=== PATIENT | female | born 1955 | race Caucasian/White ===

== ENCOUNTER 2021-12-07 10:23 | Outpatient (REF) | payer MEDICARE, SELFPAY ==
[2021-12-13 11:43] LABS: HPV mRNA E6/E7 Not Detected (Not Detected)
== END 2021-12-07 10:24 | disposition home or self-care (01) ==
LOC: HO.LAB 10:23
PROVIDERS: PCP Nurse Practitioner Family; Visit Provider Advanced Practice Midwife
DX: Z01.419 Encounter for gynecological examination (general) (routine) without abnormal findings (principal); F17.210 Nicotine dependence, cigarettes, uncomplicated; N95.1 Menopausal and female climacteric states
CPT/HCPCS: 87624; 88142

== ENCOUNTER 2021-12-17 15:13 | Outpatient (REF) | payer MEDICARE, SELFPAY ==
--- NOTE | ~2021-12-17 | MM_ITS ---
EXAMINATION: MM SCREENING DIGITAL BREAST TOMOSYNTHESIS, BILATERAL CLINICAL INFORMATION: Screening. Asymptomatic. History benign right biopsy years ago. Prior [id number] mammography from [place] currently unavailable. The lifetime risk of breast cancer based on the Tyrer-Cuzick Model is 7%. COMPARISON: None. TECHNIQUE: Digital breast tomosynthesis is performed in both the craniocaudal and mediolateral oblique views along with computer-aided detection (CAD). Synthesized 2D images are generated from the tomosynthesis. FINDINGS: The breasts are heterogeneously dense, which may obscure small masses (ACR BI-RADS breast composition Category c). There is fibronodular parenchymal pattern with scattered benign-appearing fine nodularity in the breasts. There is no significant mass or architectural abnormality. Scattered punctate and coarse calcifications are present, more numerous on right. There is biopsy clip marker anterior 3:00 periareolar right breast. The axilla and skin contours are unremarkable. Radiology department staff will attempt to retrieve prior [id number] mammography to allow for comparison in an addendum report. MM/MM tomosynthesis screening BI IMPRESSION: No mammographic evidence of malignancy. ASSESSMENT: BI-RADS 2: Benign RECOMMENDATION: Routine annual mammography screening. This patient's information was entered into a reminder system with a target due date for their next mammogram.
== END 2021-12-17 15:14 | disposition home or self-care (01) ==
LOC: HO.MAMMO 15:13
PROVIDERS: Visit Provider Nurse Practitioner Family
DX: Z12.31 Encounter for screening mammogram for malignant neoplasm of breast (principal)
CPT/HCPCS: 77063; 77067

== ENCOUNTER 2021-12-19 07:19 | Outpatient (REF) | payer MEDICARE, SELFPAY ==
[2021-12-19 08:00] LABS: Basophils Absolute Auto 0.1 X10*3/uL (0.0-0.2); Basophils Percent Auto 0.7 % (0-2); Eosinophils Absolute Auto 0.1 X10*3/uL (0.0-0.4); Eosinophils Percent Auto 1.6 % (0-4); Hematocrit 44.8 % (37.0-47.0); Hemoglobin 14.8 g/dl (12.0-16.0); Imm Gran Abs Auto 0.01 X10*3/uL (0.00-0.03); Imm Gran Pct Auto 0.1 % (0.0-0.4); Lymphocytes Absolute Auto 3.1 X10*3/uL (1.2-4.9); Lymphocytes Percent Auto 44.4 % (20-40); MANUAL DIFF FLAG SCAN; Mean Corpuscular Hemoglobin 31.5 pg (27.0-33.0); Mean Corpuscular Volume 95.3 fL (80.0-98.0); Mean Platelet Volume 10.1 fL (9.4-12.3); Monocytes Absolute Auto 0.6 X10*3/uL (0.1-1.2); Monocytes Percent Auto 8.4 % (2-11); Neutrophils Absolute Auto 3.1 x10*3/uL (2.0-8.3); Neutrophils Percent Auto 44.8 % (45-73); Platelet Count 253 X10*3/uL (160-400); SCAN SMEAR FLAG 1; White Blood Count 6.9 X10*3/uL (4.8-10.8)
[2021-12-19 08:29] LABS: Alanine Aminotransferase 18 U/L (0-31); Albumin Level 4.3 g/dL (3.5-5.0); Alkaline Phosphatase 75 U/L (39-117); Anion Gap 15 (12-20); Aspartate Amino Transferase 23 U/L (5-31); Bilirubin Total 0.5 mg/dL (0.0-1.0); Blood Urea Nitrogen 10 mg/dL (9-16); Carbon Dioxide 26 mmol/L (22-29); Chloride 101 mmol/L (96-108); Cholesterol 235 mg/dL; Estimated Average Glucose 88 mg/dL; Estimated Glomerular Filt Rate > 60; Glucose Fasting 124 mg/dL (60-99); HDL Cholesterol 78 mg/dL; Hemoglobin A1c % 4.7 %; LDL Cholesterol Calculated 141 mg/dl; Potassium 4.5 mmol/L (3.3-5.1); Sodium 137 mmol/L (135-145); Total Protein 7.4 g/dL (6.5-8.0); Triglycerides 82 mg/dL
[2021-12-19 08:54] LABS: TSH reflex Free T4 2.38 uIU/mL (0.32-4.0)
[2021-12-19 09:51] LABS: SLIDE REVIEW VERIFIED
[2021-12-23 13:46] LABS: Vitamin D 25-OH, D2 <4 ng/mL; Vitamin D 25-OH, D3 45 ng/mL; Vitamin D 25-OH, Total 45 ng/mL (30-100)
[2021-12-25 17:06] LABS: Progesterone 0.6 ng/mL
[2021-12-27 22:37] LABS: Estradiol Free 0.96 pg/mL; Estradiol, Ultrasensitive 63 pg/mL
== END 2021-12-19 07:20 | disposition home or self-care (01) ==
LOC: HO.LAB 07:19
PROVIDERS: PCP Nurse Practitioner Family; Visit Provider Nurse Practitioner Family
DX: I10 Essential (primary) hypertension (principal); E11.65 Type 2 diabetes mellitus with hyperglycemia; E78.5 Hyperlipidemia, unspecified; F41.9 Anxiety disorder, unspecified; E01.0 Iodine-deficiency related diffuse (endemic) goiter; E78.00 Pure hypercholesterolemia, unspecified; Z78.0 Asymptomatic menopausal state
CPT/HCPCS: 36415; 80053; 80061; 82306; 82670; 82681; 83036; 84144; 84443; 85025

== ENCOUNTER → 2022-03-18 09:16 | Outpatient (BNVA) | payer MEDICARE, SELFPAY | PROVIDERS: PCP Nurse Practitioner Family; Visit Provider Advanced Practice Midwife | DX: Z78.0 Asymptomatic menopausal state (principal); F17.210 Nicotine dependence, cigarettes, uncomplicated | CPT/HCPCS: 99212 ==

== ENCOUNTER 2022-08-15 14:26 | Outpatient (REF) | payer MEDICARE, SELFPAY ==
--- NOTE | ~2022-08-15 | US_ITS ---
EXAMINATION: US THYROID CLINICAL INFORMATION: Iodine-deficiency related diffuse (endemic) goiter. COMPARISON: None TECHNIQUE: Linear transducer grayscale and color Doppler examination with attention to the region of the thyroid. FINDINGS: SIZE: Measurements of the thyroid lobes and nodules are given in sagittal, anteroposterior and transverse dimensions respectively. Right Thyroid Lobe: 5.1 x 1.8 x 1.3 cm, volume 6.0 mL. Parenchyma: The gland echotexture is homogeneous. Thyroid vascularity is normal. Left Thyroid Lobe: 5.7 x 2.1 x 2.3 cm, volume 14.3 mL. Parenchyma: The gland echotexture is heterogeneous. Thyroid vascularity is normal. Isthmus: 0.3 cm in maximum AP dimension. Estimated total number of nodules greater than or equal to 1 cm: 3. Manager Digital Ad Operations nodules are described as follows: 1. Location: Right superior/mid. Size: 1.5 x 1.1 x 1.5 cm, volume 1.3 mL. Nodule characteristics: Composition: Solid (2). Echogenicity: Hypoechoic (2). Shape: Not taller than wide (0). Margins: Smooth (0). Echogenic Foci: Comet-tail artifacts (0). ACR TI-RADS total points: 4 ACR TI-RADS category: 4 2. Location: Right inferior. Size: 0.7 x 0.4 x 0.6 cm, volume 0.1 mL. Nodule characteristics: Composition: Solid (2). Echogenicity: Isoechoic (1). Shape: Not taller than wide (0). Margins: Smooth (0). Echogenic Foci: None (0). ACR TI-RADS total points: 3 ACR TI-RADS category: 3 3. Location: Right inferior. Size: 0.7 x 0.4 x 0.6 cm, volume 0.07 mL. Nodule characteristics: Composition: Solid/almost completely solid (2). Echogenicity: Isoechoic (1). Shape: Not taller than wide (0). Margins: Ill-defined (0). Echogenic Foci: None (0). ACR TI-RADS total points: 3 ACR TI-RADS category: 3 4. Location: Left superior/mid. Size: 1.7 x 1.2 x 1.5 cm, volume 1.6 mL. Nodule characteristics: Composition: Solid (2). Echogenicity: Isoechoic (1). Shape: Not taller than wide (0). Margins: Ill-defined (0). Echogenic Foci: Punctate echogenic foci (3). ACR TI-RADS total points: 6 ACR TI-RADS category: 4 5. Location: Left mid/inferior. Size: 3.1 x 2.4 x 1.6 cm, volume 6.2 mL. Nodule characteristics: Composition: Solid/almost completely solid (2). Echogenicity: Isoechoic (1). Shape: Not taller than wide (0). Margins: Smooth (0). Echogenic Foci: None (0). ACR TI-RADS total points: 3 ACR TI-RADS category: 3 NODES: No lymphadenopathy is seen in the tissue surrounding the thyroid gland. US/US thyroid IMPRESSION: 1. Enlarged left thyroid lobe heterogeneous without increased vascularity. The right thyroid lobe is normal. Multiple thyroid nodules nonsuspicious except for the largest solid nodule measuring 1.7 cm in the left lobe and a solid nodule in the right lobe measuring 1.5 cm. Recommend biopsy as per Fleischner guidelines. 2. There is a mixed 3.1 cm nodule in the left lobe with a low Ti-RADS category. This nodule can be followed up or biopsied at the same time as the other nodules. ACR TI-RADS RECOMMENDATION REFERENCE: Ultrasound-guided fine-needle aspiration, followup ultrasound, no further follow up. * TR1 (0 point) and TR 2 (2 points): No FNA or follow up. * TR3 (3 points): FNA if more than or equal to 2.5 cm in maximum dimension, followup ultrasound in 1, 3 and 5 years if 1.5 to 2.4 cm in maximum dimension. * TR4 (4-6 points): FNA if more than or equal to 1.5 cm in maximum dimension, followup ultrasound in 1, 2, 3 and 5 years if 1 to 1.4 cm in maximum dimension. * TR5 (more than or equal to 7 points): FNA if more than or equal to 1 cm in maximum dimension, followup ultrasound every year for 5 years if 0.5 to 0.9 cm in maximum dimension. * TR3, TR4 or TR5 nodules that are below the size threshold for followup receive no follow up.
== END 2022-08-15 14:27 | disposition home or self-care (01) ==
LOC: HO.US 14:26
PROVIDERS: PCP Nurse Practitioner Family; Visit Provider Nurse Practitioner Family
DX: E01.0 Iodine-deficiency related diffuse (endemic) goiter (principal)
CPT/HCPCS: 76536

== ENCOUNTER → 2022-08-19 14:57 | Outpatient (REF) | payer MEDICARE, SELFPAY ==
--- NOTE | 2022-08-19 14:59 | CA_ITS ---
Transthoracic Echocardiogram Patient (Last, First, Middle): June Perez J Gender: Female Date of : 1955 Age: 67 Procedure Date: 08/19/2022 Procedure Type: Transthoracic Echocardiogram Location: OP Height: 165.1 cm Weight: 61.24 kg BSA: 1.67 m2 Heart Rate: bpm BP: 122 / 60 mmHg Transit Driver: Referring MD: Kerrie GREEN Symptoms: R01.1 - Cardiac murmur, unspecified Study Quality: Good ECG Rhythm: Sinus Conclusions: - The left ventricular systolic function is normal. The visually estimated ejection fraction is between 65-70%. - There is moderate calcification of the aortic valve. There is mild aortic valve stenosis. Findings Left Ventricle Normal left ventricular cavity size. There is normal left ventricular wall thickness. The left ventricular systolic function is normal. The visually estimated ejection fraction is between 65-70%. There is no evidence of regional wall motion abnormalities. Diastolic function is normal for age. Right Ventricle Normal right ventricular cavity size and systolic function. Atria Both atria are normal in size. Aortic Valve There is moderate calcification of the aortic valve. There is mild aortic valve stenosis. The mean gradient is 9 mmHg. The aortic valve area is 1.92 cm2. There is no aortic valve regurgitation. Mitral Valve The mitral valve appears normal. There is trace mitral valve regurgitation. There is no mitral valve stenosis. Pulmonic Valve The pulmonic valve is likely normal. Tricuspid Valve Normal tricuspid valve structure. There is trace tricuspid valve regurgitation. There is no evidence of pulmonary hypertension. Great Vessels The asc aorta is normal in size. Venous The inferior vena cava is normal in size and collapses greater than 50% with inspiration. Pericardium/Pleural There is no evidence of pericardial effusion. Prior Study Comparison No prior study available for comparison. Measurements 2D Linear Measurements IVSd: 1.01 0.6-0.9/0.6-1.0 cm LVIDd: 3.89 3.9-5.3/4.2-5.9 cm LVIDd Index: 2.33 2.4-3.2/2.2-3.1 cm/m2 LVIDs: 2.65 2.0-3.6 cm LVPWd: 0.93 0.7-1.1 cm Ao Root: 3.00 2.1-3.5 cm LA Diam: 2.90 2.7-3.8/3.0-4.0 cm LAIDs Index: 1.74 1.5-2.3 cm/m2 LV Mass: 145.18 67-162/88-224 g LV Mass Index: 86.93 43-95/49-115 g/m2 LVOT Diam: 2.00 3.0+(-)1.3 cm 2D Systolic Function EF 4C: 59.00 >55% EF 2C: 66.00 >55% EF BiP: 61.30 >55% Mitral Valve MV Pk E: 0.63 MV PK A: 0.92 MV Decel Time: 163.00 E/A: 0.70 E'Lateral: 8.81 E'Medial: 5.44 E/E' Med: 11.70 E/E' Lat: 7.20 PHT: 48.00 MVA PHT: 4.58 Decel [place]: 3.89 Aortic Valve AoV Pk Surjit: 2.05 AoV Mn Surjit: 1.38 AoV VTI: 0.34 AoV Pk Grad: 17.00 Aov Mn Grad: 9.00 BREE Cont.VTI: 1.92 LVOT LVOT Pk Surjit: 1.26 LVOT Mn Surjit: 0.75 LVOT VTI: 0.21 LVOT Pk Grad: 6.00 LVOT Mn Grad: 3.00 LVOT Diam: 2.00 LVOT Area: 3.14 Diastolic Function MV Pk E: 0.63 MV Pk A: 0.92 E/A: 0.70 E'Medial: 5.44 E/E' Med: 11.70 E' Laterial: 8.81 E/E' Lat: 7.20 Right Ventricle TAPSE (mm): 20.00 TVS' Surjit: 14.00 Tricuspid Valve TR Pk Surjit: 2.17 TR Pk Grad: 19.00 RA Press: 3.00 RVSP: 22.00 Great Vessels Aorta Ao Root-2D: 3.00 2.0-3.7 cm Ao Asc: 2.90 2.1-3.4 cm Pulmonary Valve PV Pk Surjit: 1.38 Peak PV Grad: 8.00 Updated in Other Vendor System with Status of Final Raymond Knapp MD electronically signed on 08/20/2022 10:17:11 AM with status of Final
== END ==
LOC: HO.CARD 14:57
PROVIDERS: PCP Nurse Practitioner Family; Visit Provider Nurse Practitioner Family
DX: R01.1 Cardiac murmur, unspecified (principal)
CPT/HCPCS: 93306

== ENCOUNTER → 2022-08-28 15:13 | Outpatient (BNVA) | payer MEDICARE, SELFPAY | PROVIDERS: PCP Nurse Practitioner Family; Visit Provider Internal Medicine | DX: E04.2 Nontoxic multinodular goiter (principal) | CPT/HCPCS: 99202 ==

== ENCOUNTER → 2022-09-04 13:10 | Outpatient (BNVA) | payer MEDICARE, SELFPAY | PROVIDERS: PCP Nurse Practitioner Family; Referring Provider Nurse Practitioner Family; Visit Provider Internal Medicine | DX: I35.0 Nonrheumatic aortic (valve) stenosis (principal); F17.210 Nicotine dependence, cigarettes, uncomplicated | CPT/HCPCS: 93005; 99202 ==

== ENCOUNTER 2022-12-16 08:13 | Outpatient (REF) | payer MEDICARE, SELFPAY ==
[2022-12-16 09:02] LABS: Hematocrit 42.5 % (37.0-47.0); Hemoglobin 14.1 g/dl (12.0-16.0); Mean Corpuscular HGB Conc 33.2 g/dl (31.0-35.0); Mean Corpuscular Hemoglobin 30.1 pg (27.0-33.0); Mean Corpuscular Volume 90.6 fL (80.0-98.0); Mean Platelet Volume 10.1 fL (9.4-12.3); Platelet Count 279 X10*3/uL (160-400); Red Blood Count 4.69 X10*6/uL (4.20-5.50); Red Cell Distribution Width 14.4 % (11.0-16.0); White Blood Count 7.2 X10*3/uL (4.8-10.8)
[2022-12-16 09:07] LABS: Estimated Average Glucose 94 mg/dL; Hemoglobin A1c % 4.9 %
[2022-12-16 09:41] LABS: Alanine Aminotransferase 14 U/L (0-31); Alkaline Phosphatase 96 U/L (39-117); Anion Gap 13 (12-20); Aspartate Amino Transferase 18 U/L (5-31); Bilirubin Total 0.6 mg/dL (0.0-1.0); Blood Urea Nitrogen 12 mg/dL (9-16); Calcium 9.9 mg/dL (8.4-10.2); Carbon Dioxide 29 mmol/L (22-29); Chloride 101 mmol/L (96-108); Cholesterol 219 mg/dL; Estimated Glomerular Filt Rate > 60; Glucose Random 113 mg/dL (60-115); HDL Cholesterol 59 mg/dL; LDL Cholesterol Calculated 147 mg/dl; Potassium 4.8 mmol/L (3.3-5.1); Sodium 138 mmol/L (135-145); Total Protein 6.9 g/dL (6.5-8.0); Triglycerides 67 mg/dL
[2022-12-16 09:59] LABS: TSH reflex Free T4 2.84 uIU/mL (0.32-4.0); Vitamin D 25-OH Total 61.8 ng/mL (>30)
[2022-12-16 10:11] LABS: Folate 17.1 ng/mL (> or = 4.0); Free T4 (Free Thyroxine) 0.87 ng/dL (0.71-1.85); Thyroid Stimulating Hormone 2.91 uIU/mL (0.32-4.0); Vitamin B12 814 pg/mL (200-900)
== END 2022-12-16 08:14 | disposition home or self-care (01) ==
LOC: HO.LAB 08:13
PROVIDERS: Absent Provider Internal Medicine; PCP Nurse Practitioner Family; Visit Provider Nurse Practitioner Family
DX: E04.2 Nontoxic multinodular goiter (principal); F41.9 Anxiety disorder, unspecified; E78.5 Hyperlipidemia, unspecified; R73.9 Hyperglycemia, unspecified; R01.1 Cardiac murmur, unspecified; I70.0 Atherosclerosis of aorta; Z78.0 Asymptomatic menopausal state
CPT/HCPCS: 36415; 80053; 80061; 82306; 82607; 82746; 83036; 84439; 84443; 85027

== ENCOUNTER 2022-12-19 07:52 | Outpatient (REF) | payer MEDICARE, SELFPAY ==
--- NOTE | 2022-12-19 08:45 | PM.OP ---
Brief Operative Note Date of Service: 12/19/22 Pre-op diagnosis: Multinodular Thyroid Procedure: This is doctor Saumya Reich. This is an ultrasound-guided fine-needle aspiration report. Indication: Multinodular Thyroid Porcedure: Procedure was explained to the patient. Alternatives, the risk and benefits were discussed. Written consent was obtained. A time-out was also obtained. After sterile preparation, 1 ml of 1% lidocaine solution was applied subcutaneously for anesthetic effect. Then Fine-needle aspiration of a left mid pole 1.7 cm thyroid nodule was performed using direct ultrasound guidance to confirm accurate needle placement. Four aspirations were made using 27 gauge needles. Samples were submitted for cytology. One pass was dedicated for [employer] Gene sequencing staying machine operator testing. Our attention was then turned to another left mid pole nodule. Fine-needle aspiration of a left mid pole 3.1 cm thyroid nodule was performed using direct ultrasound guidance to confirm accurate needle placement. Four aspirations were made using 27 gauge needles. Samples were submitted for cytology. One pass was dedicated for Afirma Gene sequencing staying machine operator testing. Our attention was then turned to the right mid pole. Fine-needle aspiration of a right mid pole 1.5 cm thyroid nodule was performed using direct ultrasound guidance to confirm accurate needle placement. Four aspirations were made using 27 gauge needles. Samples were submitted for cytology. One pass was dedicated for Afirma Gene sequencing staying machine operator testing. The patient tolerated the procedure well. Aftercare instructions were provided. Impression: Uncomplicated fine needle aspiration biopsy of a left mid pole 1.7 cm thyroid nodule, a left mid pole 3.1 cm thyroid nodule and a right mid pole 1.5 cm thyroid nodule under ultrasound guidance. Surgeon: Saumya Reich, DO Was an [place]paca Farmer used for this Procedure?: No Estimated blood loss (mL): 0
== END 2022-12-19 07:53 | disposition home or self-care (01) ==
LOC: HO.US 07:52
PROVIDERS: PCP Nurse Practitioner Family; Visit Provider Internal Medicine
DX: E04.2 Nontoxic multinodular goiter (principal)
CPT/HCPCS: 10005; 10006; 88172; 88173; 88177; 88305

== ENCOUNTER 2022-12-24 13:12 | Outpatient (REF) | payer MEDICARE, SELFPAY ==
--- NOTE | ~2022-12-24 | MM_ITS ---
EXAMINATION: MM SCREENING DIGITAL BREAST TOMOSYNTHESIS, BILATERAL CLINICAL INFORMATION: Screening. Asymptomatic. The lifetime risk of breast cancer based on the Tyrer-Cuzick Model is 12.8%. COMPARISON: Mammography: 12/17/2021 and studies dating back to 04/01/2017. TECHNIQUE: Digital breast tomosynthesis is performed in both the craniocaudal and mediolateral oblique views along with computer-aided detection (CAD). Synthesized 2D images are generated from the tomosynthesis. FINDINGS: The breasts are extremely dense, which lowers the sensitivity of mammography (ACR BI-RADS breast composition Category d). There is a stable parenchymal pattern of the left breast without new abnormal dominant mass or suspicious grouping of microcalcifications. Within the inferior medial aspect of the right breast there is a well-circumscribed density measuring approximately 1.1 x 0.7 cm in size for which ultrasound evaluation is recommended. MM/MM tomosynthesis screening BI IMPRESSION: Right breast lesion inferior medial aspect for ultrasound evaluation. ASSESSMENT: BI-RADS 0: Incomplete - Need additional imaging evaluation. RECOMMENDATION: Targeted ultrasound of the right breast.
== END 2022-12-24 13:13 | disposition home or self-care (01) ==
LOC: HO.MAMMO 13:12
PROVIDERS: PCP Nurse Practitioner Family; Visit Provider Nurse Practitioner Family
DX: Z12.31 Encounter for screening mammogram for malignant neoplasm of breast (principal)
CPT/HCPCS: 77063; 77067

== ENCOUNTER 2022-12-31 13:39 | Outpatient (REF) | payer MEDICARE, SELFPAY ==
--- NOTE | ~2022-12-31 | US_ITS ---
EXAMINATION: US DIAGNOSTIC ULTRASOUND BREAST, RIGHT CLINICAL INFORMATION: Recall from screening mammography for circumscribed oval mass inferior right breast approximately 1 cm. COMPARISON: Prior mammography exams, most recent 12/24/2022. TECHNIQUE: Ultrasound right breast is targeted to the lower breast. Grayscale imaging and color Doppler are performed without and with harmonics. FINDINGS: There is an oval simple cyst measuring approximately 1.0 x 0.5 x 0.8 cm 5:00 position mid depth corresponding to the finding on mammography. The cyst is circumscribed and shows increased through-transmission of sound and no associated color flow. There is no solid mass, architectural abnormality, duct ectasia, or edema in the soft tissue planes. Results are discussed with the patient at time of visit. US/US breast RT limited IMPRESSION: Incidental simple cyst 5:00 position corresponding to finding on mammography measuring 1.0 cm. ASSESSMENT: BI-RADS 2: Benign RECOMMENDATION: Routine annual mammography screening. This patient's information was entered into a reminder system with a target due date for their next mammogram.
== END 2022-12-31 13:40 | disposition home or self-care (01) ==
LOC: HO.MAMMO 13:39
PROVIDERS: Visit Provider Nurse Practitioner Family
DX: R92.2 Inconclusive mammogram (principal)
CPT/HCPCS: 76642

== ENCOUNTER → 2023-01-02 12:45 | Outpatient (BNVA) | payer MEDICARE, SELFPAY | PROVIDERS: PCP Nurse Practitioner Family; Visit Provider Internal Medicine | DX: E04.2 Nontoxic multinodular goiter (principal) | CPT/HCPCS: 99212 ==

== ENCOUNTER → 2023-01-21 11:31 | Outpatient (BNVA) | payer MEDICARE, SELFPAY | PROVIDERS: PCP Nurse Practitioner Family; Visit Provider Advanced Practice Midwife | DX: Z01.419 Encounter for gynecological examination (general) (routine) without abnormal findings (principal); N95.1 Menopausal and female climacteric states | CPT/HCPCS: 99212 ==

== ENCOUNTER 2023-01-22 10:27 | Outpatient (REF) | payer MEDICARE, SELFPAY ==
--- NOTE | ~2023-01-22 | MM_ITS ---
EXAMINATION: BONE DENSITOMETRY CLINICAL INDICATION: Asymptomatic menopausal state. COMPARISON: None (current study represents initial baseline exam). TECHNIQUE: Using a [employer] DXA System (software version: 13.1) manufactured by [employer], dual-energy x-ray absorptiometry was performed of the lumbar spine and left hip. The images are of good technical quality. Summary results are attached. FINDINGS: AP SPINE L1-L2 (excluding L3 and L4): The data of L1-L4 has been changed to exclude the L3 and L4 vertebral bodies, because degenerative changes at these levels may cause overestimation of lumbar spine density. BMD 0.833 g/cm2, Z-score -1.0, T-score -2.8, osteoporosis. LEFT FEMUR, NECK: BMD 0.775 g/cm2, Z-score -0.3, T-score -1.9, osteopenia. LEFT FEMUR, TOTAL: BMD 0.809 g/cm2, Z-score -0.2, T-score -1.6, osteopenia. IDENTIFIED RISK FACTORS: Parental hip fracture. Current smoker. Menopause. HISTORY OF FRACTURE: None listed. MEDICATIONS: Calcium supplement and/or multivitamin. Vitamin D. MM/XR DEXA axial skeleton IMPRESSION: 1. DIAGNOSIS: Osteoporosis based on the lowest T-score value of -2.8 in the lumbar spine applying World Health Organization criteria. 2. 10-YEAR FRACTURE RISK PREDICTION, FRAX: According to the guidelines, FRAX calculation should only be performed on patients in the osteopenia bone density category.?Therefore, FRAX was not performed on this patient.? 3. Treatment Recommendations: NOF guidelines recommend consideration for treatment in postmenopausal women and men age 50 and older presenting with the following: -A hip or vertebral (clinical or morphometric) fracture. -T-score less than or equal to -2.5 at the femoral neck or spine after appropriate evaluation to exclude secondary causes. -Low bone mass at the hip or spine and a 10-year fracture probability by FRAX of greater than or equal to 3% for hip fracture or greater than or equal to 20% for major osteoporotic fracture based on the [place] adapted WHO algorithm. 4. Other Recommendations: All treatment decisions require clinical judgment and consideration of individual patient factors, including patient preferences, comorbidities, previous drug use, risk factors not captured in the FRAX model (e.g. frailty, falls, vitamin D deficiency, increased bone turnover, interval significant decline in bone density) and possible under or overestimation of fracture risk by FRAX. Additional medical evaluation for secondary cause of low bone mineral density may be appropriate. FUTURE SCAN RECOMMENDATION: People with diagnosed cases of osteoporosis or at high risk for fracture should have regular bone mineral density tests. For patients eligible for Medicare, routine testing is allowed once every 2 years. The testing frequency can be increased to one year for patients who have rapidly progressing disease, those who are receiving or discontinuing medical therapy to restore bone mass, or have additional risk factors.
== END 2023-01-22 10:28 | disposition home or self-care (01) ==
LOC: HO.MAMMO 10:27
PROVIDERS: PCP Nurse Practitioner Family; Visit Provider Nurse Practitioner Family
DX: Z13.820 Encounter for screening for osteoporosis (principal); Z78.0 Asymptomatic menopausal state
CPT/HCPCS: 77080

== ENCOUNTER 2023-03-26 09:57 | Outpatient (AMB) | payer MEDICARE, SELFPAY ==
--- NOTE | 2023-03-26 09:58 | A.OFFVIS_ITS ---
Intake Intake Visit Reasons: Osteoporosis Intake Note: Osteoporosis follow up visit. Social Sciences Lecturer Required: No Allergies diphenhydramine [From Benadryl] Adverse Reaction (Intermediate, Verified 03/26/23 11:41) Shakiness Medication List - Last Reconciled 03/26/23 by Saumya Reich, DO escitalopram oxalate 10 mg PO DAILY folic acid 0.8 mg PO DAILY lorazepam 0.5 mg PO DAILY PRN HPI HPI Comments History of Present Illness Details 67 YO F with PMHx Multinodular thyroid who is seen in F/U. She will be following with Fred Soto for Osteoporosis. Was initially diagnosed with multinodular thyroid many years ago and was previously followed by Dr. Rianna Dunne. Had a recent thyroid US 07/10/2022 which revealed multiple nodules meeting indication for an FNA biopsy. She presented 12/19/2022 for FNA biopsy of her LMP 1.7 cm, LMP 3.1 cm and RMP 1.5 cm thyroid nodules. Cytology was benign for all nodules. Currently denies any dysphagia or hoarseness of voice. Denies any palpitations, tremors, weight loss, frequent bowel movements. Denies hair loss, dry skin, heat or cold intolerance, weight gain, confusion. Denies any history of head or neck irradiation. Denies any family history of thyroid cancer. Thyroid US: 07/10/2022 Right Thyroid Lobe: 5.1 x 1.8 x 1.3 cm, volume 6.0 mL. Parenchyma: The gland echotexture is homogeneous. Thyroid vascularity is normal. Left Thyroid Lobe: 5.7 x 2.1 x 2.3 cm, volume 14.3 mL. Parenchyma: The gland echotexture is heterogeneous. Thyroid vascularity is normal. Isthmus: 0.3 cm in maximum AP dimension. Estimated total number of nodules greater than or equal to 1 cm: 3. Commercial Sales Representative nodules are described as follows: 1. Location: Right superior/mid. ?? ? Size: 1.5 x 1.1 x 1.5 cm, volume 1.3 mL. ?? ? Nodule characteristics: ?? ? Composition: Solid (2). ?? ? Echogenicity: Hypoechoic (2). ?? ? Shape: Not taller than wide (0). ?? ? Margins: Smooth (0). ?? ? Echogenic Foci: Comet-tail artifacts (0). ?? ? ACR TI-RADS total points: 4 ?? ? ACR TI-RADS category: 4 2. Location: Right inferior. ?? ? Size: 0.7 x 0.4 x 0.6 cm, volume 0.1 mL. ?? ? Nodule characteristics: ?? ? Composition: Solid (2). ?? ? Echogenicity: Isoechoic (1). ?? ? Shape: Not taller than wide (0). ?? ? Margins: Smooth (0). ?? ? Echogenic Foci: None (0). ?? ? ACR TI-RADS total points: 3 ?? ? ACR TI-RADS category: 3 3. Location: Right inferior. ?? ? Size: 0.7 x 0.4 x 0.6 cm, volume 0.07 mL. ?? ? Nodule characteristics: ?? ? Composition: Solid/almost completely solid (2). ?? ? Echogenicity: Isoechoic (1). ?? ? Shape: Not taller than wide (0). ?? ? Margins: Ill-defined (0). ?? ? Echogenic Foci: None (0). ?? ? ACR TI-RADS total points: 3 ?? ? ACR TI-RADS category: 3 4. Location: Left superior/mid. ?? ? Size: 1.7 x 1.2 x 1.5 cm, volume 1.6 mL. ?? ? Nodule characteristics: ?? ? Composition: Solid (2). ?? ? Echogenicity: Isoechoic (1). ?? ? Shape: Not taller than wide (0). ?? ? Margins: Ill-defined (0). ?? ? Echogenic Foci: Punctate echogenic foci (3). ?? ? ACR TI-RADS total points: 6 ?? ? ACR TI-RADS category: 4 5.? Location: Left mid/inferior. ?? ? Size: 3.1 x 2.4 x 1.6 cm, volume 6.2 mL. ?? ? Nodule characteristics: ?? ? Composition: Solid/almost completely solid (2). ?? ? Echogenicity: Isoechoic (1). ?? ? Shape: Not taller than wide (0). ?? ? Margins: Smooth (0). ?? ? Echogenic Foci: None (0). ?? ? ACR TI-RADS total points: 3 ?? ? ACR TI-RADS category: 3 NODES: No lymphadenopathy is seen in the tissue surrounding the thyroid gland. Labs: Laboratory Tests 12/16/22 12/16/22 08:28 08:28 TSH 2.84 Free T4 0.87 [facility] Medical History Encounter to establish care Menopausal vaginal dryness Multinodular thyroid Osteopenia Palpitations Smoking Surgical History No pertinent past surgical history Family History Mother Age: 88 Breast CA Heart valve replaced Father No problems noted. Other Mental health disorder Social History Housing: Condominium Alcohol intake: current Alcohol intake frequency: a few times a week Alcohol type: wine Patient Tobacco Use Status: Current everyday Tobacco user Tobacco use type: Cigarette Cigarette Packs Per Day: 0.5 Cigarettes Per Day: 10 Years Smoked: 40 e-Cigarette/Vaping Use: Never Used Second Hand Smoke Exposure: No service: No Current occupational status: retired Sexual orientation: Straight/Heterosexual Gender identity: Female Cognitive needs: No Hearing needs: No Vision needs: Yes (reading glasses) Female Reproductive History Menstrual Age of Menarche: 13 Assessment & Plan Assessment & Plan (1) Multinodular thyroid: Code(s): E04.2 - Nontoxic multinodular goiter Plan: Patient with a multinodular thyroid. She underwent FNA biopsy of her LMP 1.7 cm, LMP 3.1 cm and RMP 1.5 cm thyroid nodules 12/19/2022 all with benign cytology. She will F/U with Fred Soto for her Osteoporosis, a new referral. She will be due for a surveillance thyroid US in December of 2023. All of her questions were answered. She is in agreement with this plan of care. I spent 20 minutes in reviewing the record, seeing the patient and documenting in the medical record, including 5 minutes on the phone with the Patient. Telehealth Telehealth Location of provider rendering services: practice address Location of patient: address on file Patient Identification confirmed using: Name, : Yes Telehealth method: voice only Patient verbally consented to treatment: Yes Patient verbally consented to billing insurance company: Yes Patient informed of any privacy concerns related to visit: Yes Coding Level of Care Code Tele Est Pt Level 3 (28464) Diagnoses Multinodular thyroid E04.2
== END 2023-03-26 13:56 | disposition home or self-care (01) ==
LOC: HO.ENCR 09:57
PROVIDERS: PCP Nurse Practitioner Family; Visit Provider Internal Medicine
DX: E04.2 Nontoxic multinodular goiter (principal)
CPT/HCPCS: 99443

== ENCOUNTER → 2023-03-26 09:57 | Outpatient (BNVA) | payer MEDICARE, SELFPAY | PROVIDERS: PCP Nurse Practitioner Family; Visit Provider Internal Medicine ==

== ENCOUNTER 2023-05-27 13:26 | Outpatient (AMB) | payer MEDICARE, SELFPAY ==
--- NOTE | 2023-05-27 13:27 | MHC.OFFVIS ---
Intake Vital Signs 05/27/23 13:28 Height 5 ft 4 in Weight 138 lb 7.205 oz BMI 23.8 BP 132/86 Blood Pressure Location Lt brachial Position Sitting Pulse 79 Pulse Source Pulse Oximeter Intake Visit Reasons: Osteoporosis/LVM Intake Note: New patient to Dr. Soto present today for Osteoporosis. Previously followed by Dr. Merino. 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 Arriaga is seen in consultation at the request of PCP for Osteoporosis. First diagnosed in this yr . Received no treatment in the past No history of pathologic fracture or ONJ. Has several servings of dietary calcium per day in the form of cheese, cottage cheese, salmon . Takes Calcium supplement 600 mg daily in divided doses. Takes ? IU of Vitamin D daily. Denies ever using PPI, anticoagulant, antiepileptic or glucocorticoid medication. Does weight bearing exercise 2-3 days per week in the form of brenda lifting . 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 UTD on dental cleanings and sees dentist every 6 months. No planned upcoming dental work or extractions. DXA dated 01/22/23 :FINDINGS: AP SPINE L1-L2 (excluding L3 and L4): The data of L1-L4 has been changed to exclude the L3 and L4 vertebral bodies, because degenerative changes at these levels may cause overestimation of lumbar spine density. BMD 0.833 g/cm2, Z-score -1.0, T-score -2.8, osteoporosis. LEFT FEMUR, NECK: BMD 0.775 g/cm2, Z-score -0.3, T-score -1.9, osteopenia. LEFT FEMUR, TOTAL: BMD 0.809 g/cm2, Z-score -0.2, T-score -1.6, osteopenia. IDENTIFIED RISK FACTORS: Parental hip fracture. Current smoker. Menopause. HISTORY OF FRACTURE: None listed. MEDICATIONS: Calcium supplement and/or multivitamin. Vitamin D. MM/XR DEXA axial skeleton IMPRESSION: 1. DIAGNOSIS: Osteoporosis based on the lowest T-score value of -2.8 in the lumbar spine applying World Health Organization criteria. Labs: [facility] Medical History Encounter to establish care Menopausal vaginal dryness Multinodular thyroid Osteopenia Palpitations Smoking Surgical History No pertinent past surgical history Family History Mother Age: 88 Breast CA Heart valve replaced Father No problems noted. Other Mental health disorder Social History Housing: Condominium Alcohol intake: current Alcohol intake frequency: a few times a week Alcohol type: wine Patient Tobacco Use Status: Current everyday Tobacco user Tobacco use type: Cigarette Cigarette Packs Per Day: 0.5 Cigarettes Per Day: 10 Years Smoked: 40 e-Cigarette/Vaping Use: Never Used Second Hand Smoke Exposure: No service: No Current occupational status: retired Sexual orientation: Straight/Heterosexual Gender identity: Female Cognitive needs: No Hearing needs: No Vision needs: Yes (reading glasses) Female Reproductive History Menstrual Age of Menarche: 13 Physical Exam Vital Signs: Last Vital Signs Pulse 79 05/27/23 13:28 BP 132/86 05/27/23 13:28 BMI result Body Mass Index 23.8 There are no Cushingoid features. Absence of blue sclera. Absence of kyphosis. Thyroid gland is of nl size and weighs 15 gms. There are no thyroid nodules palpated. Lungs CTA. Heart S1 S2 Reg R/R Abdominal exam benign. Muscle strength 5/5 . Examination of spine reveals absence of tenderness on palpation Assessment & Plan Assessment & Plan (1) Osteoporosis: Code(s): M81.0 - Age-related osteoporosis without current pathological fracture Plan: This 67-year-old white female found to have osteoporosis. Rule out secondary cause. Plan is to check a 24 hour urine for calcium and creatinine, SPEP, urine immunofixation and phosphorus. Will ensure 1200 mg of calcium and 2000-units of vitamin-D 3. Assuming secondary workup is negative could consider pharmacologic treatment with anti resorptive . We talked about the use of estrogen replacement or Evista or bisphosphonate. Patient tend to favor Evista as there is a family history of breast cancer in her mom Orders: Orders Phosphorus Today M81.0 - Age-related osteoporosis without current pathological fracture Calcium, 24 Hr Ur Today M81.0 - Age-related osteoporosis without current pathological fracture Protein Electrophoresis, Serum Today M81.0 - Age-related osteoporosis without current pathological fracture Creatinine, 24 Hr Group Today M81.0 - Age-related osteoporosis without current pathological fracture Immunofixation, Random Urine Today M81.0 - Age-related osteoporosis without current pathological fracture Coding Level of Care Code Est Pt Level 3 (93943) Diagnoses Osteoporosis M81.0
[2023-05-27 13:28] VITALS: BP 132/86; PULSE 79; BMI 23.8
== END 2023-05-27 14:14 | disposition home or self-care (01) ==
PROVIDERS: PCP Nurse Practitioner Family; Visit Provider Internal Medicine Endocrinology, Diabetes & Metabolism
DX: M81.0 Age-related osteoporosis without current pathological fracture (principal)
CPT/HCPCS: 99213

== ENCOUNTER → 2023-05-27 13:26 | Outpatient (BNVA) | payer MEDICARE, SELFPAY | PROVIDERS: PCP Nurse Practitioner Family; Visit Provider Internal Medicine Endocrinology, Diabetes & Metabolism | DX: M81.0 Age-related osteoporosis without current pathological fracture (principal) | CPT/HCPCS: 99212 ==

== ENCOUNTER 2023-07-08 08:21 | Outpatient (REF) | payer MEDICARE, SELFPAY ==
[2023-07-08 09:55] LABS: Cholesterol 234 mg/dL (<200); HDL Cholesterol 70 mg/dL (>40); LDL Cholesterol Calculated 138 mg/dL (<100); Triglycerides 130 mg/dL (<150)
== END 2023-07-08 08:22 | disposition home or self-care (01) ==
LOC: HO.LAB 08:21
PROVIDERS: PCP Nurse Practitioner Family; Visit Provider Nurse Practitioner Family
DX: E78.5 Hyperlipidemia, unspecified (principal)
CPT/HCPCS: 36415; 80061

== ENCOUNTER 2023-07-10 10:50 | Outpatient (AMB) | payer MEDICARE, SELFPAY ==
--- NOTE | 2023-07-10 10:57 | MHC.PC.OV ---
Vital Signs 07/10/23 10:58 07/10/23 11:23 Height 5 ft 4 in Weight 139 lb BMI 23.9 BP 140/72 H 126/80 Blood Pressure Location Lt brachial Lt brachial Position Sitting Sitting Pulse 97 Pulse Source Pulse Oximeter Pulse Oximetry (%) 98 Oxygen Delivery Method Room Air Intake Visit Reasons: 6 month f/u Freight Coordinator Required: No Allergies diphenhydramine [From Benadryl] Adverse Reaction (Intermediate, Verified 07/10/23 11:13) Shakiness Medication List - Last Reconciled 07/10/23 by NORMA Childs escitalopram oxalate 10 mg PO DAILY folic acid 0.8 mg PO DAILY lorazepam 0.5 mg PO DAILY PRN Tobacco use date assessed: 07/10/23 Fall risk assessment: No Falls in past year Last assessed Fall Risk: 07/10/23 Dental Screening Dental Screen Date: 07/10/23 Did you have a dental visit in the last 12 months?: Yes Did you have a dental problem in the last 6 months where you did not have access to dental care?: No Was dental information given to patient?: Patient has dentist HPI 6 month f/u HPI Details Patient is a 67-year-old female presents today for a routine follow-up.? Medical history significant for hyperglycemia, dyslipidemia, anxiety, thyromegaly - followed by [facility], and nonrheumatic aortic stenosis-followed by [facility].? Patient reports that she is compliant with medications and denies side effects. No shortness of breath or chest pain. Has therapist for anxiety. [facility] Medical History Menopausal vaginal dryness Smoking Multinodular thyroid Palpitations Osteopenia Encounter to establish care Surgical History No pertinent past surgical history Family History Mother Age: 88 Breast CA Heart valve replaced Father No problems noted. Other Mental health disorder Social History Housing: Condominium Alcohol intake: current Alcohol intake frequency: a few times a week Alcohol type: wine Patient Tobacco Use Status: Current everyday Tobacco user Tobacco use type: Cigarette Cigarette Packs Per Day: 0.5 Cigarettes Per Day: 10 Years Smoked: 40 e-Cigarette/Vaping Use: Never Used Second Hand Smoke Exposure: No service: No Current occupational status: retired Sexual orientation: Straight/Heterosexual Gender identity: Female Cognitive needs: No Hearing needs: No Vision needs: Yes (reading glasses) Female Reproductive History Menstrual Age of Menarche: 13 Questionnaire Thrive Questionnaire Date Thrive assessed: 12/27/22 AUDIT C Alcohol Use Questionnaire (AUDIT-C) 1. How often do you have a drink containing alcohol?: Never 2. How many drinks containing alcohol do you have on a typical day when you are drinking?: 1 or 2 (0) 3. How often do you have six or more drinks on one occasion?: Never Total Score: 0 Score Reviewed/Action Taken: No ZARINA-7 AMB Questionnaire ZARINA-7 Date ZARINA - 7 assessed: 12/27/22 Source: Developed by Drs. Laz Garrison, Britney Austin, Saul Bai and colleagues, with an educational darrell from [employer]. Review of Systems Const Denies body aches, Denies chills, Denies fever(s) and Denies headache(s) Eyes Denies change in vision ENT Denies dizziness, Denies otalgia, Denies headache(s), Denies nasal discharge, Denies sinus pain and Denies sore throat Card Denies chest pain, Denies edema, Denies lightheadedness and Denies dyspnea Resp Denies chest congestion, Denies cough and Denies dyspnea GI Denies abdominal pain Denies dysuria Musc Denies myalgias Skin/Breast Denies rash Neuro Denies dizziness and Denies headache(s) Physical exam (Primary Care) Vital Signs: Last Vital Signs Pulse 97 07/10/23 10:58 BP 140/72 H 07/10/23 10:58 Pulse Ox 98 07/10/23 10:58 Oxygen Delivery Method Room Air 07/10/23 10:58 BMI result Body Mass Index 23.9 Tobacco/Smoking Status: Tobacco use Status Tobacco use date assessed 07/10/23 07/10/23 11:02 Patient Tobacco Use Status Current everyday Tobacco 07/10/23 10:58 Tobacco use type Cigarette 07/10/23 10:58 e-Cigarette/Vaping Use Never Used 07/10/23 10:58 Thrive Assessment: Date of Thrive Assessment Date Thrive assessed 12/27/22 07/10/23 10:58 Const General: cooperative and no acute distress Orientation/consciousness: patient oriented x3 HENMT Head: Yes normocephalic and Yes atraumatic Throat: Yes posterior oropharynx normal Eyes General: appearance normal, both eyes and all related structures Neck Neck: Yes normal visual inspection and Yes full ROM Resp Effort & Inspection: normal respiratory effort and able to speak in complete sentences Auscultation: clear to auscultation bilaterally, no crackles, no rales, no rhonchi and no wheezes Cardio Rate: regular rate Rhythm: regular rhythm Heart sounds: S1 normal heart sound present, S2 normal heart sound present and Murmur heart sound present systolic GI Auscultation: normal bowel sounds Skin General skin exam: no rashes or lesions noted Neuro General: patient oriented x3 Gait exam (Neuro): Normal gait present Extrem General: Yes full ROM and No edema Assessment and Plan Assessment & Plan (1) Hyperglycemia: Code(s): R73.9 - Hyperglycemia, unspecified Plan: Low-carbohydrate diet A1c 4.9 12/2022 (2) Dyslipidemia: Code(s): E78.5 - Hyperlipidemia, unspecified Plan: Low-cholesterol diet LDL 138 06/2023 Continue to monitor (3) Anxiety: Code(s): F41.9 - Anxiety disorder, unspecified Plan: Continue escitalopram 10 mg daily Continue lorazepam 0.5 mg daily p.r.n.-educated about dependency and memory loss Continue to follow-up with therapist (4) Nonrheumatic aortic (valve) stenosis: Code(s): I35.0 - Nonrheumatic aortic (valve) stenosis Plan: Continue to follow-up with [facility] (5) Multinodular thyroid: Code(s): E04.2 - Nontoxic multinodular goiter Plan: Continue to follow-up with [facility] Plan Follow-up in 6 months or sooner as needed Orders: Orders Lipid Panel 6 Months E78.5 - Hyperlipidemia, unspecified Comprehensive [place]. Panel Fast 6 Months R73.9 - Hyperglycemia, unspecified Coding Level of Care Code Est Pt Level 4 (28551) Diagnoses Hyperglycemia R73.9 Dyslipidemia E78.5 Anxiety F41.9 Nonrheumatic aortic (valve) stenosis I35.0 Multinodular thyroid E04.2
[2023-07-10 10:58] VITALS: BP 140/72; PULSE 97; O2SAT 98; BMI 23.9
[2023-07-10 11:23] VITALS: BP 126/80
== END 2023-07-10 11:28 | disposition home or self-care (01) ==
PROVIDERS: PCP Nurse Practitioner Family; Visit Provider Nurse Practitioner Family
DX: R73.9 Hyperglycemia, unspecified (principal); E78.5 Hyperlipidemia, unspecified; F41.9 Anxiety disorder, unspecified; I35.0 Nonrheumatic aortic (valve) stenosis; E04.2 Nontoxic multinodular goiter
CPT/HCPCS: 99214

== ENCOUNTER → 2023-09-02 10:24 | Outpatient (BNVA) | payer MEDICARE, SELFPAY | PROVIDERS: PCP Nurse Practitioner Family; Visit Provider Internal Medicine Endocrinology, Diabetes & Metabolism ==

== ENCOUNTER 2023-09-25 14:34 | Outpatient (REF) | payer MEDICARE, SELFPAY ==
[2023-09-25 15:00] LABS: Total Volume 24 Hour Urine 1800 mL
[2023-09-25 15:10] LABS: Creatinine, 24Hr Urine 1.2 G/Day (1.0-2.0); Creatinine, mg/dL 64.02
[2023-09-26 16:57] LABS: Calcium, 24 Hr Urine 191 mg/24 h; Calcium/Creatinine Ratio 171 mg/g creat (30-275); Creatinine 24Hr Urine 1.12 g/24 h (0.50-2.15)
== END 2023-09-25 14:35 | disposition home or self-care (01) ==
LOC: HO.LNP 14:34
PROVIDERS: Visit Provider Internal Medicine Endocrinology, Diabetes & Metabolism
DX: M81.0 Age-related osteoporosis without current pathological fracture (principal)
CPT/HCPCS: 82340; 82570

== ENCOUNTER 2023-10-08 10:28 | Outpatient (REF) | payer MEDICARE, SELFPAY ==
[2023-10-08 12:29] LABS: Phosphorus 3.5 mg/dL (2.7-4.5)
[2023-10-09 13:33] LABS: Prot Elec - Albumin 4.6 g/dL (3.8-4.8); Prot Elec - Alpha1 0.3 g/dL (0.2-0.3); Prot Elec - Alpha2 0.7 g/dL (0.5-0.9); Prot Elec - Beta 1 0.4 g/dL (0.4-0.6); Prot Elec - Beta 2 0.3 g/dL (0.2-0.5); Prot Elec - Gamma 1.3 g/dL (0.8-1.7); Prot Elec - Total Protein 7.6 g/dL (6.1-8.1)
== END 2023-10-08 10:29 | disposition home or self-care (01) ==
LOC: HO.LAB 10:28
PROVIDERS: PCP Nurse Practitioner Family; Visit Provider Internal Medicine Endocrinology, Diabetes & Metabolism
DX: M81.0 Age-related osteoporosis without current pathological fracture (principal)
CPT/HCPCS: 84100; 84165; 86335

== ENCOUNTER 2023-10-14 15:58 | Outpatient (AMB) | payer MEDICARE, SELFPAY ==
--- NOTE | 2023-10-14 15:59 | MHC.OFFVIS ---
Intake Vital Signs 10/14/23 16:03 Height 5 ft 4.41 in Weight 137 lb 9.095 oz BMI 23.3 BP 128/56 L Blood Pressure Location Lt brachial Position Sitting Pulse 113 H Pulse Source Pulse Oximeter Intake Visit Reasons: Osteoporosis-lvm Intake Note: Patient presents today for Osteoporosis follow up. Freight Checker Required: No Accompanied by: Self / Same As Patient Allergies diphenhydramine [From Benadryl] Adverse Reaction (Intermediate, Verified 10/14/23 16:05) Shakiness HPI HPI Comments History of Present Illness Details 67 YO Female with PMHx MNG previously followed by Dr. Merino is seen in consultation at the request of PCP for Osteoporosis. First diagnosed in this yr . Received no treatment in the past No history of pathologic fracture or ONJ. Has several servings of dietary calcium per day in the form of cheese, cottage cheese, salmon . Takes Calcium supplement 600 mg daily in divided doses. Takes ? IU of Vitamin D daily. Denies ever using PPI, anticoagulant, antiepileptic or glucocorticoid medication. Does weight bearing exercise 2-3 days per week in the form of brenda lifting . 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 UTD on dental cleanings and sees dentist every 6 months. No planned upcoming dental work or extractions. DXA dated 01/22/23 :FINDINGS: AP SPINE L1-L2 (excluding L3 and L4): The data of L1-L4 has been changed to exclude the L3 and L4 vertebral bodies, because degenerative changes at these levels may cause overestimation of lumbar spine density. BMD 0.833 g/cm2, Z-score -1.0, T-score -2.8, osteoporosis. LEFT FEMUR, NECK: BMD 0.775 g/cm2, Z-score -0.3, T-score -1.9, osteopenia. LEFT FEMUR, TOTAL: BMD 0.809 g/cm2, Z-score -0.2, T-score -1.6, osteopenia. IDENTIFIED RISK FACTORS: Parental hip fracture. Current smoker. Menopause. HISTORY OF FRACTURE: None listed. MEDICATIONS: Calcium supplement and/or multivitamin. Vitamin D. MM/XR DEXA axial skeleton IMPRESSION: 1. DIAGNOSIS: Osteoporosis based on the lowest T-score value of -2.8 in the lumbar spine applying World Health Organization criteria. Labs: [facility] Medical History Menopausal vaginal dryness Smoking Multinodular thyroid Palpitations Osteopenia Encounter to establish care Surgical History No pertinent past surgical history Family History Mother Age: 88 Breast CA Heart valve replaced Father No problems noted. Other Mental health disorder Social History Housing: Condominium Alcohol intake: current Alcohol intake frequency: a few times a week Alcohol type: wine Patient Tobacco Use Status: Current everyday Tobacco user Tobacco use type: Cigarette Cigarette Packs Per Day: 0.5 Cigarettes Per Day: 10 Years Smoked: 40 e-Cigarette/Vaping Use: Never Used Second Hand Smoke Exposure: No service: No Current occupational status: retired Sexual orientation: Straight/Heterosexual Gender identity: Female Cognitive needs: No Hearing needs: No Vision needs: Yes (reading glasses) Female Reproductive History Menstrual Age of Menarche: 13 Physical Exam Vital Signs: Last Vital Signs Pulse 113 H 10/14/23 16:03 BP 128/56 L 10/14/23 16:03 BMI result Body Mass Index 23.3 Assessment & Plan Assessment & Plan (1) Osteoporosis: Code(s): M81.0 - Age-related osteoporosis without current pathological fracture Plan: This 67-year-old white female found to have osteoporosis. Secondary workup was negative After a careful discussion with patient regarding different options, we decided to go with raloxifene 60 mg q.d.. We went over side effects of raloxifene including hot flashes and risk of DVT. We will check urinary NTX in 6 months prior to return appointment Orders: Orders Collagen Crosslinks NTX 6 Months M81.0 - Age-related osteoporosis without current pathological fracture Medications: New raloxifene (Evista) 60 mg PO DAILY 30 tabs 5RF Coding Level of Care Code Est Pt Level 3 (36946) Diagnoses Osteoporosis M81.0
[2023-10-14 16:03] VITALS: BP 128/56; PULSE 113; BMI 23.3
== END 2023-10-14 16:31 | disposition home or self-care (01) ==
PROVIDERS: PCP Nurse Practitioner Family; Visit Provider Internal Medicine Endocrinology, Diabetes & Metabolism
DX: M81.0 Age-related osteoporosis without current pathological fracture (principal)
CPT/HCPCS: 99213

== ENCOUNTER → 2023-10-14 15:58 | Outpatient (BNVA) | payer MEDICARE, SELFPAY | PROVIDERS: PCP Nurse Practitioner Family; Visit Provider Internal Medicine Endocrinology, Diabetes & Metabolism | DX: M81.0 Age-related osteoporosis without current pathological fracture (principal) | CPT/HCPCS: 99212 ==

== ENCOUNTER 2023-10-16 10:13 | Outpatient (REF) | payer MEDICARE, SELFPAY ==
--- NOTE | ~2023-10-16 | US_ITS ---
EXAMINATION: US THYROID CLINICAL INFORMATION: Nontoxic multinodular goiter. COMPARISON: Ultrasound-guided thyroid biopsy 12/19/2022. Thyroid ultrasound 08/15/2022. TECHNIQUE: Linear transducer silva-scale and color Doppler examination with attention to the region of the thyroid. FINDINGS: SIZE: Measurements of the thyroid lobes and nodules are given in sagittal, anteroposterior and transverse dimensions respectively. Right Thyroid Lobe: 5.3 x 1.8 x 1.4 cm, volume 6.8 mL. Previously 5.1 x 1.8 x 1.3 cm, volume 6 mL. Parenchyma: The gland echotexture is homogeneous. Thyroid vascularity is normal. Left Thyroid Lobe: 5.1 x 2.3 x 2.3 cm, volume 14.6 mL. Previously 5.7 x 2.1 x 2.3 cm, volume 14.3 mL. Parenchyma: The gland echotexture is heterogeneous. Thyroid vascularity is normal. Isthmus: 0.3 cm in maximum AP dimension. Previously 0.3 cm. Estimated total number of nodules greater than or equal to 1 cm: 3. Floor Grinder nodules are described as follows: 1. Location: Right superior/mid. Size: 1 x 1.9 x 1 cm, volume 1 mL. Previously: 1.5 x 1.1 x 1.5 cm, volume 1.3 mL. Nodule characteristics: Composition: Solid/almost completely solid (2). Echogenicity: Hypoechoic (2). Shape: Not taller than wide (0). Margins: Smooth (0). Echogenic Foci: None (0). ACR TI-RADS total points: 4 Previous: 4 ACR TI-RADS category: 4 Previous: 4 Significant change in size (>/= 20% in 2 dimensions and minimal increase of 2 mm or 50% or greater increase in volume): Change in features: Change in ACR TI-RADS risk category: 2. Location: Right inferior. Size: 0.8 x 0.7 x 0.6 cm, volume 0.18 mL. Previously: 0.7 x 0.4 x 0.6 cm, volume 0.1 mL. Nodule characteristics: Composition: Solid/almost completely solid (2). Echogenicity: Isoechoic (1). Shape: Not taller than wide (0). Margins: Smooth (0). Echogenic Foci: None (0). ACR TI-RADS total points: 3 Previous: 3 ACR TI-RADS category: 3 Previous: 3 Significant change in size (>/= 20% in 2 dimensions and minimal increase of 2 mm or 50% or greater increase in volume): Change in features: Change in ACR TI-RADS risk category: 3. Location: Right inferior. Size: 0.7 x 0.8 x 0.4 cm, volume 0.13 mL. Previously: 0.7 x 0.6 x 0.4 cm, volume 0.07 mL. Nodule characteristics: Composition: Solid/almost completely solid (2). Echogenicity: Hypoechoic (2). Shape: Not taller than wide (0). Margins: Smooth (0). Echogenic Foci: None (0). ACR TI-RADS total points: 4 Previous: 3 ACR TI-RADS category: 4 Previous: 3 Significant change in size (>/= 20% in 2 dimensions and minimal increase of 2 mm or 50% or greater increase in volume): Change in features: Change in ACR TI-RADS risk category: 4. Location: Left superior/mid. Size: 1.5 x 1.6 x 1.6 cm, volume 2 mL. Previously: 1.7 x 1.2 x 1.5 cm, volume 1.6 mL. Nodule characteristics: Composition: Solid/almost completely solid (2). Echogenicity: Hypoechoic (2). Shape: Not taller than wide (0). Margins: Ill-defined (0). Echogenic Foci: Macrocalcifications (1). ACR TI-RADS total points: 5 Previous: 6 ACR TI-RADS category: 4 Previous: 4 Significant change in size (>/= 20% in 2 dimensions and minimal increase of 2 mm or 50% or greater increase in volume): Change in features: Change in ACR TI-RADS risk category: 5. Location: Left mid/inferior. Size: 2.5 x 2.7 x 2 cm, volume 7.2 mL. Previously: 3.1 x 2.4 x 1.6 cm, volume 6.2 mL. Nodule characteristics: Composition: Mixed cystic and solid (1). Echogenicity: Isoechoic (1). Shape: Not taller than wide (0). Margins: Smooth (0). Echogenic Foci: None (0). ACR TI-RADS total points: 2 Previous: 3 ACR TI-RADS category: 2 Previous: 3 Significant change in size (>/= 20% in 2 dimensions and minimal increase of 2 mm or 50% or greater increase in volume): Change in features: Change in ACR TI-RADS risk category: NODES: No lymphadenopathy is seen in the tissue surrounding the thyroid gland. US/US thyroid IMPRESSION: Enlarged left lobe. Multiple bilateral thyroid nodule stable from previous exam. Nodules 1 and 4 were previously biopsied December 2022. ACR TI-RADS RECOMMENDATION REFERENCE: Ultrasound-guided fine-needle aspiration, follow up ultrasound, no further followup. * TR1 (0 point) and TR2 (2 points): No FNA or followup * TR3 (3 points): FNA if more than or equal to 2.5 cm in maximum dimension, follow up ultrasound in 1, 3 and 5 years if 1.5 to 2.4 cm in maximum dimension. * TR4 (4-6 points): FNA if more than or equal to 1.5 cm in maximum dimension, follow up ultrasound in 1, 2, 3 and 5 years if 1 to 1.4 cm in maximum dimension. * TR5 (more than or equal to 7 points): FNA if more than or equal to 1 cm in maximum dimension, follow up ultrasound every year for 5 years if 0.5 to 0.9 cm in maximum dimension. * TR3, TR4 or TR5 nodules that are below the size threshold for follow up receive no followup.
== END 2023-10-16 10:14 | disposition home or self-care (01) ==
LOC: HO.US 10:13
PROVIDERS: PCP Nurse Practitioner Family; Visit Provider Internal Medicine Endocrinology, Diabetes & Metabolism
DX: E04.2 Nontoxic multinodular goiter (principal)
CPT/HCPCS: 76536

== ENCOUNTER 2024-01-29 10:01 | Outpatient (AMB) | payer MEDICARE, SELFPAY ==
[2024-01-29 10:06] VITALS: BP 142/76; BMI 23.7
--- NOTE | 2024-01-29 10:06 | A.OFFVIS_ITS ---
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 She is doing well with no concerns. Attempting to eat a healthy diet with calcium and vitamin D and stays active with exercise. Currently sexually active. Denies any vaginal dryness or irritation. STI testing offered; she declines. Last pap smear; 2021. Last mammogram; overdue. Colonoscopy is UTD. Denies any family history of ovarian or colon cancer. Family history of breast cancer-mom dx. age 72. [facility] Medical History Menopausal vaginal dryness Smoking Multinodular thyroid Palpitations Osteopenia Encounter to establish care Surgical History No pertinent past surgical history Family History Mother Age: 89 Breast CA Heart valve replaced Father No problems noted. Other Mental health disorder Social History Housing: Condominium Alcohol intake: current Alcohol intake frequency: a few times a week Alcohol type: wine Patient Tobacco Use Status: Current everyday Tobacco user Tobacco use type: Cigarette Cigarette Packs Per Day: 0.5 Cigarettes Per Day: 10 Years Smoked: 40 e-Cigarette/Vaping Use: Never Used Second Hand Smoke Exposure: No Patient : No service: No Current occupational status: retired Sexual orientation: Straight/Heterosexual Gender identity: Female Cognitive needs: No Hearing needs: No Vision needs: Yes (reading glasses) Female Reproductive History Menstrual Age of Menarche: 13 control method: none Total pregnancies: 3 Full term: 2 Number of Living Children: 2 Ab spontaneous: 1 Date of last pap smear: 12/10/21 (negative) Date of Mammogram: 12/24/22 Date of last Bone Density Screenin01/22/23 Review of Systems Const All systems reviewed & are unremarkable except as noted in HPI and below Reports as per HPI Eyes Reports no additional complaints ENT Reports no additional complaints Card Reports no additional complaints Resp Reports no additional complaints GI Reports as per HPI and Reports no additional complaints Reports as per HPI Musc Reports no additional complaints Skin/Breast Reports as per HPI Neuro Reports no additional complaints Psych Reports no additional complaints Endo Reports no additional complaints Alexy/Lymph Reports no additional complaints Aller/Immun Reports no additional complaints Physical Exam Vital Signs: Last Vital Signs BP 142/76 H 01/29/24 10:06 BMI result Body Mass Index 23.7 Const General: cooperative, healthy appearing, no acute distress, well developed and alert Orientation/consciousness: patient oriented x3 HEENT Head: Yes normal to inspection Eyes General: appearance normal, both eyes and all related structures Neck Neck: Yes normal visual inspection Thyroid: Thyroid normal Chest Chest palpation & inspection: normal inspection of the chest and other (no puckering, dimpling, peau de orange, retraction, discharge, masses) Breast/axilla inspection: normal inspection of the breasts Breast/axilla palpation: normal palpation of the breasts Resp Effort & Inspection: normal respiratory effort GI Inspection: Yes normal to inspection Palpation (GI): Soft to palpation Rectal Exam - Female: deferred General: Yes bladder normal to palpation External Female Exam: normal external appearance and normal appearance of the urethra Speculum Exam - Vagina: normal appearance of the vagina, normal palpation, normal vaginal discharge and vagina atrophic Speculum Exam - Cervix: normal appearance of the cervix and normal palpation Bimanual exam- vagina & uterus: normal bimanual exam, normal palpation, uterine size normal, bladder normal to palpation, normal palpation and non-tender Bimanual Exam- Adnexa, other: no masses Skin General skin exam: no rashes or lesions noted Rashes: no rashes Neuro General: patient oriented x3 Cognition (Neuro): normal cognition Extrem General: Yes normal to inspection Psych Attitude: cooperative Thought process: Normal thought process present Assessment & Plan Assessment & Plan (1) Encounter for well woman exam with routine gynecological exam: Code(s): Z01.419 - Encounter for gynecological examination (general) (routine) without a bnormal findings Category: Medical Plan: Discussed: Current recommendations for pap smears per ASCCP guidelines. Breast awareness, periodic self breast exams and yearly mammogram. Mammogram ordered. Maintain a healthy lifestyle, well balanced diet including Calcium 1,200 mg and Vitamin D 600 IU daily, and routine exercise. Replens moisturizer if needed. Informed of BRCA testing, currently not interested, advised to call the office if she reconsiders. Contact the office with any postmenopausal bleeding. Patient verbalizes understanding and agrees to the plan of care. She was given opportunity to ask questions and all questions were answered to the best of my ability. RTO in 1 year for annual meal grinder tender exam. This note is constructed using voice recognition software. While every effort has been made to ensure accuracy, electric tape slitter errors may have been included. Orders: Orders MM tomosynthesis screening BI Today Z12.31 - Encounter for screening mammogram for malignant neoplasm of breast Coding Level of Care Code Est Pt Prev Care >65y(50862) Diagnoses Encounter for well woman exam with routine gynecological exam Z01.419
== END 2024-01-29 10:38 | disposition home or self-care (01) ==
LOC: HO.HWS 10:01
PROVIDERS: PCP Nurse Practitioner Family; Visit Provider Advanced Practice Midwife
DX: Z01.419 Encounter for gynecological examination (general) (routine) without abnormal findings (principal)
CPT/HCPCS: G0101

== ENCOUNTER → 2024-01-29 10:01 | Outpatient (BNVA) | payer MEDICARE, SELFPAY | PROVIDERS: PCP Nurse Practitioner Family; Visit Provider Advanced Practice Midwife | DX: Z01.419 Encounter for gynecological examination (general) (routine) without abnormal findings (principal) | CPT/HCPCS: G0101 ==

== ENCOUNTER 2024-02-20 10:40 | Outpatient (REF) | payer MEDICARE, SELFPAY ==
--- NOTE | ~2024-02-20 | MM_ITS ---
EXAMINATION: MM SCREENING DIGITAL BREAST TOMOSYNTHESIS, BILATERAL CLINICAL INFORMATION: Screening. Asymptomatic. COMPARISON: Mammography: This study is compared with prior exams dating back to 2018. TECHNIQUE: Digital breast tomosynthesis is performed in both the craniocaudal and mediolateral oblique views along with computer-aided detection (CAD). Synthesized 2D images are generated from the tomosynthesis. FINDINGS: There are scattered areas of fibroglandular density (ACR BI-RADS breast composition Category b). There is a focal asymmetry in the deep third of the upper outer quadrant of the left breast for which additional mammographic and targeted sonographic imaging is advised. In the right breast, there are no significant masses, abnormal calcifications, or other abnormalities. MM/MM tomosynthesis screening BI IMPRESSION: Focal asymmetry of the left breast warrants additional mammographic and targeted sonographic imaging. No mammographic signs of malignancy right breast. ASSESSMENT: BI-RADS BI-RADS 0 - Incomplete: Needs additional Imaging. RECOMMENDATION: 1. Additional views of the left breast. 2.Targeted ultrasound if warranted after review of the additional views. 3. Radiology department staff will contact the patient for additional imaging. Additional Imaging required This examination should not preclude the clinical evaluation of a suspicious palpable abnormality. This patient's information was entered into a reminder system with a target due date for their next mammogram.
== END 2024-02-20 10:41 | disposition home or self-care (01) ==
LOC: HO.MAMMO 10:40
PROVIDERS: Visit Provider Advanced Practice Midwife
DX: Z12.31 Encounter for screening mammogram for malignant neoplasm of breast (principal)
CPT/HCPCS: 77063; 77067

== ENCOUNTER → 2024-02-20 10:45 | Outpatient (BNV) | payer MEDICARE, SELFPAY | PROVIDERS: Visit Provider Radiology Diagnostic Radiology | DX: Z12.31 Encounter for screening mammogram for malignant neoplasm of breast (principal) | CPT/HCPCS: 77063; 77067 ==

== ENCOUNTER 2024-03-24 09:00 | Outpatient (AMB) | payer MEDICARE, SELFPAY ==
--- NOTE | 2024-03-24 09:01 | A.OFFPC_ITS ---
Vital Signs 03/24/24 09:08 Height 5 ft 4.29 in Weight 138 lb 4 oz BMI 23.5 BP 112/66 Blood Pressure Location Lt brachial Position Sitting Respiration 14 Pulse 95 Pulse Source Pulse Oximeter Temp 98.6 F Temp Source Oral Pulse Oximetry (%) 97 Oxygen Delivery Method Room Air Intake Visit Reasons: Health Care Visit Intake Note: New patient visit. 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 Allergies diphenhydramine [From Benadryl] Adverse Reaction (Intermediate, Verified 01/29/24 10:08) Shakiness Medication List - Last Reconciled 03/24/24 by Sarita Neely PA-C calcium citrate-vitamin D3 500 mg-12.5 mcg (500 unit) tabs PO escitalopram oxalate 10 mg PO DAILY folic acid 0.8 mg PO DAILY lorazepam 0.5 mg PO DAILY PRN raloxifene (Evista) 60 mg PO DAILY vitamin B complex (B Complex-Vitamin B12 tablet) 1 tab PO DAILY Tobacco use date assessed: 03/24/24 Fall risk assessment: No Falls in past year Last assessed Fall Risk: 03/24/24 Dental Screening Dental Screen Date: 03/24/24 Did you have a dental visit in the last 12 months?: Yes Did you have a dental problem in the last 6 months where you did not have access to dental care?: No Was dental information given to patient?: No HPI Health Care Visit HPI Details Patient is a 68-year-old female with a significant past medical history of anxiety, depression, hyperlipidemia, hyperglycemia, multinodular thyroid, aortic stenosis presenting today to establish care. CV: Blood pressure today in the office is 112/66. She follows with [facility] for her aortic stenosis. Psych: Currently well-controlled with Lexapro 10 mg and lorazepam as needed. She gets 1-2 rx of lorazepam prn. Endo: on evista. feels well on this medication. following with endo for thyroidmegaly and nodules. Mammo: utd, going back in April for repeat imaging of the left breast. liquor tester: utd Colonoscopy: last did cologuard 2020, has a hx of polyps on first colonoscopy bone density: osteoporosis- on evista and following with dr. donaldson low dose chest ct: has a 20 pack year hx. currently smoking [facility] Medical History Menopausal vaginal dryness Smoking Multinodular thyroid Palpitations Osteopenia Encounter to establish care Surgical History No pertinent past surgical history Family History Mother Age: 89 Breast CA Heart valve replaced Father No problems noted. Other Mental health disorder Social History (Updated 03/24/24 @ 09:07 by Tayler Bauer CMA) Housing: Condominium Alcohol intake: current Alcohol intake frequency: a few times a week Alcohol type: wine Patient Tobacco Use Status: Current everyday Tobacco user Tobacco use type: Cigarette Cigarette Packs Per Day: 0.5 Cigarettes Per Day: 10 Years Smoked: 40 e-Cigarette/Vaping Use: Never Used Second Hand Smoke Exposure: No service: No Current occupational status: retired Sexual orientation: Straight/Heterosexual Gender identity: Female Cognitive needs: No Hearing needs: No Vision needs: Yes (reading glasses) Female Reproductive History Menstrual Age of Menarche: 13 Questionnaire PHQ-9 Over the last 2 weeks, how often have you been bothered by any of the following problems? 1. Little interest or pleasure in doing things: not at all 2. Feeling down, depressed, or hopeless: several days 3. Trouble falling or staying asleep, or sleeping too much: several days 4. Feeling tired or having little energy: not at all 5. Poor appetite or overeating: not at all 6. Feeling bad about yourself - or that you are a failure or have let yourself or your family down: several days 7. Trouble concentrating on things, such as reading the newspaper or watching television: not at all 8. Moving or speaking so slowly that other people could have noticed. Or the opposite - being so fidgety or restless that you have been moving around a lot more than usual: not at all 9. Thoughts that you would be better off or of hurting yourself in some way: not at all Total score: 3 Depression Screening Interpretation: Negative Depression Screening Done: Yes 41620 - PHQ-9 Billing: Yes Source: Developed by Drs. Laz Garrison, Britney Austin, Saul Bai and colleagues, with an educational darrell from [employer]. Thrive Questionnaire Date Thrive assessed: 03/24/24 I am a: Patient What is your living situation today?: I have a steady place to live Within the past 12 months, did the food you bought not last and you didn't have the money to get more?: Never true Within the past 12 months, did you worry whether your food would run out before you got money to buy more?: Never true Do you have trouble paying for medicines?: No Do you have trouble getting transportation to medical appointments?: No Do you have trouble paying your heating and electricity bill?: No Do you have trouble taking care of your child, family member or friend?: No Do you have trouble with day-to-day activities such as bathing, preparing meals, shopping, managing finances, etc.?: No Are you currently unemployed and looking for a job?: No Are you interested in more education?: No Please select the resources that you would like help with: None Currently or been in a relationship where the following occur: No concerns reported THRIVE Score: 0 AUDIT C Alcohol Use Questionnaire (AUDIT-C) 1. How often do you have a drink containing alcohol?: 2-4 times a month 2. How many drinks containing alcohol do you have on a typical day when you are drinking?: 1 or 2 3. How often do you have six or more drinks on one occasion?: Never Total Score: 2 Score Reviewed/Action Taken: Yes ZARINA-7 AMB Questionnaire ZARINA-7 Date ZARINA - 7 assessed: 03/24/24 Feeling nervous, anxious, or on edge: 1 = Several days Not being able to stop or control worryin = Not at all Worrying too much about different things: 0 = Not at all Trouble relaxin = Not at all Being so restless that it is hard to sit still: 1 = Several days Becoming easily annoyed or irritable: 1 = Several days Feeling afraid as if something awful might happen: 0 = Not at all Total ZARINA-7 score (0-4 normal; 5-9 mild; 10-14 moderate; 15-21 severe): 3 Source: Developed by Drs. Laz Garrison, Britney Austin, Saul Bai and colleagues, with an educational darrell from [employer]. ZARINA-7 Assessment Billing ZARINA-7 Assessment Tool: ZARINA-7 Assessment 30012 Physical exam (Primary Care) Vital Signs: Last Vital Signs Temp 98.6 F 03/24/24 09:08 Pulse 95 03/24/24 09:08 Resp 14 03/24/24 09:08 BP 112/66 03/24/24 09:08 Pulse Ox 97 03/24/24 09:08 Oxygen Delivery Method Room Air 03/24/24 09:08 BMI result Body Mass Index 23.5 Tobacco/Smoking Status: Tobacco use Status Tobacco use date assessed 03/24/24 03/24/24 09:11 Patient Tobacco Use Status Current everyday Tobacco 03/24/24 09:07 Tobacco use type Cigarette 03/24/24 09:07 e-Cigarette/Vaping Use Never Used 03/24/24 09:07 Depression Screening Interpretation: Negative Thrive Assessment: Date of Thrive Assessment Date Thrive assessed 12/27/22 03/24/24 09:04 Currently or been in a relationship where the following occur: No concerns reported Const Orientation/consciousness: patient oriented x3 HENMT Ears: hearing grossly normal bilaterally Neck Thyroid: diffusely enlarged and multiple palpable nodules Lymphatic: no lymphadenopathy noted Resp Auscultation: clear to auscultation bilaterally Cardio Rate: regular rate Rhythm: regular rhythm Heart sounds: S1 normal heart sound present and S2 normal heart sound present GI Inspection: Yes normal to inspection Palpation (GI): Soft to palpation and Other GI palpation findings present (nontender, no cva tenderness) Auscultation: normoactive bowel sounds Rectal Exam - Female: deferred Skin General skin exam: no rashes or lesions noted Neuro General: patient oriented x3, gait normal and no focal motor deficits Results Reviewed Results Reviewed: Laboratory Tests Conclusions: - The left ventricular systolic function is normal. The visually estimated ejection fraction is between 65-70%. - There is moderate calcification of the aortic valve. There is mild aortic valve stenosis. US/US thyroid IMPRESSION: Enlarged left lobe. Multiple bilateral thyroid nodule stable from previous exam. Nodules 1 and 4 were previously biopsied December 2022. 07/08/23 08:35 Triglycerides 130 Cholesterol 234 H LDL Cholesterol, Calc 138 H HDL Cholesterol 70 Assessment and Plan Assessment & Plan (1) Anxiety: Code(s): F41.9 - Anxiety disorder, unspecified Plan: Refilled medication. (2) Dyslipidemia: Code(s): E78.5 - Hyperlipidemia, unspecified Plan: Lipids ordered. (3) Hyperglycemia: Code(s): R73.9 - Hyperglycemia, unspecified Plan: A1c ordered. No polyuria polydipsia (4) Nonrheumatic aortic (valve) stenosis: Code(s): I35.0 - Nonrheumatic aortic (valve) stenosis Plan: Referral to cardiology. Due this year to be seen. Reviewed echo with patient Orders: Orders Comprehensive [place]. Panel Fast Today E78.5 - Hyperlipidemia, unspecified, F41.9 - Anxiety disorder, unspecified, R73.9 - Hyperglycemia, unspecified Complete Blood Count Auto Diff Today E78.5 - Hyperlipidemia, unspecified, F41.9 - Anxiety disorder, unspecified, R73.9 - Hyperglycemia, unspecified Vitamin B12 and Folate Today E78.5 - Hyperlipidemia, unspecified, F41.9 - Anxiety disorder, unspecified, R73.9 - Hyperglycemia, unspecified Lipid Panel Today E78.5 - Hyperlipidemia, unspecified, F41.9 - Anxiety disorder, unspecified, R73.9 - Hyperglycemia, unspecified TSH reflex Free T4 Today E78.5 - Hyperlipidemia, unspecified, F41.9 - Anxiety disorder, unspecified, R73.9 - Hyperglycemia, unspecified Hemoglobin A1c Today E78.5 - Hyperlipidemia, unspecified, F41.9 - Anxiety disorder, unspecified, R73.9 - Hyperglycemia, unspecified Referrals Thoracic/General Surgery Referral F17.200 - Nicotine dependence, unspecified, uncomplicated, Z12.2 - Encounter for screening for malignant neoplasm of respiratory organs Open Access Screening Colonoscopy Referral Z12.11 - Encounter for screening for malignant neoplasm of colon, Z12.12 - Encounter for screening for malignant neoplasm of rectum Cardiology Referral I35.0 - Nonrheumatic aortic (valve) stenosis Medications: Refilled escitalopram oxalate 10 mg PO DAILY 90 tabs 3RF F41.9 - Anxiety disorder, unspecified Coding Level of Care Code Est Pt Level 4 (04421) Complex EM visit Add On G2211 Diagnoses Anxiety F41.9 Dyslipidemia E78.5 Hyperglycemia R73.9 Nonrheumatic aortic (valve) stenosis I35.0 Additional Codes ZARINA-7 Assessment Billing - ZARINA-7 Assessment Tool: ZARINA-7 Assessment 17024 ([id number])
[2024-03-24 09:08] VITALS: BP 112/66; PULSE 95; RESP 14; TEMP 37; O2SAT 97; BMI 23.5
== END 2024-03-24 09:49 | disposition home or self-care (01) ==
PROVIDERS: PCP Physician Assistant; Visit Provider Physician Assistant
DX: E78.5 Hyperlipidemia, unspecified (principal); F41.9 Anxiety disorder, unspecified; R73.9 Hyperglycemia, unspecified; I35.0 Nonrheumatic aortic (valve) stenosis
CPT/HCPCS: 99214; G2211

== ENCOUNTER 2024-04-12 08:59 | Outpatient (REF) | payer MEDICARE, SELFPAY ==
[2024-04-12 10:05] LABS: Basophils Percent Auto 0.6 % (0-2); Eosinophils Absolute Auto 0.1 X10*3/uL (0.0-0.4); Eosinophils Percent Auto 1.6 % (0-4); Hematocrit 42.3 % (37.0-47.0); Hemoglobin 14.8 g/dl (12.0-16.0); Imm Gran Abs Auto 0.02 X10*3/uL (0.00-0.03); Imm Gran Pct Auto 0.3 % (0.0-0.4); Lymphocytes Absolute Auto 2.8 X10*3/uL (1.2-4.9); Lymphocytes Percent Auto 40.4 % (20-40); MANUAL DIFF FLAG SCAN; Mean Corpuscular Volume 94.2 fL (80.0-98.0); Mean Platelet Volume 10.4 fL (9.4-12.3); Monocytes Absolute Auto 0.5 X10*3/uL (0.1-1.2); Monocytes Percent Auto 7.8 % (2-11); Neutrophils Absolute Auto 3.4 x10*3/uL (2.0-8.3); Neutrophils Percent Auto 49.3 % (45-73); Platelet Count 230 X10*3/uL (160-400); Red Blood Count 4.49 X10*6/uL (4.20-5.50); Red Cell Distribution Width 13.6 % (11.0-16.0); SCAN SMEAR FLAG 1; White Blood Count 6.9 X10*3/uL (4.8-10.8)
[2024-04-12 10:36] LABS: SLIDE REVIEW VERIFIED
[2024-04-12 10:47] LABS: Alanine Aminotransferase 18 U/L (0-31); Albumin Level 4.2 g/dL (3.5-5.0); Alkaline Phosphatase 93 U/L (39-117); Anion Gap 10 (12-20); Aspartate Amino Transferase 21 U/L (5-31); Bilirubin Total 0.4 mg/dL (0.0-1.0); Blood Urea Nitrogen 13 mg/dL (9-16); Calcium 9.1 mg/dL (8.4-10.2); Carbon Dioxide 28 mmol/L (22-29); Chloride 103 mmol/L (96-108); Cholesterol 199 mg/dL (<200); Estimated Glomerular Filt Rate > 60; Glucose Fasting 107 mg/dL (60-99); HDL Cholesterol 65 mg/dL (>40); LDL Cholesterol Calculated 115 mg/dL (<100); Potassium 4.2 mmol/L (3.3-5.1); Sodium 137 mmol/L (135-145); Total Protein 7.1 g/dL (6.5-8.0); Triglycerides 96 mg/dL (<150)
[2024-04-12 10:53] LABS: Estimated Average Glucose 88 mg/dL; Hemoglobin A1c % 4.7 % (<6.0)
[2024-04-12 11:07] LABS: TSH reflex Free T4 1.62 uIU/mL (0.32-4.0)
[2024-04-12 11:08] LABS: Folate 13.8 ng/mL (> or = 4.0); Vitamin B12 878 pg/mL (200-900)
== END 2024-04-12 09:00 | disposition home or self-care (01) ==
LOC: HO.LAB 08:59
PROVIDERS: PCP Physician Assistant; Visit Provider Physician Assistant
DX: R73.9 Hyperglycemia, unspecified (principal); E78.5 Hyperlipidemia, unspecified; F41.9 Anxiety disorder, unspecified
CPT/HCPCS: 36415; 80053; 80061; 82607; 82746; 83036; 84443; 85025

== ENCOUNTER 2024-04-13 10:21 | Outpatient (AMB) | payer MEDICARE, SELFPAY ==
--- NOTE | 2024-04-13 10:26 | MHC.OFFVIS ---
Vital Signs 04/13/24 10:27 Height 5 ft 4.29 in Weight 138 lb 14.259 oz BMI 23.6 BP 144/78 H Blood Pressure Location Lt brachial Position Sitting Pulse 96 Pulse Source Pulse Oximeter Intake Visit Reasons: f/u osteoporosis/CONFIRMED Intake Note: Patient present today for Osteoporosis follow up visit. Clinical Account Executive Required: No Accompanied by: Self / Same As Patient Allergies diphenhydramine [From Benadryl] Adverse Reaction (Intermediate, Verified 04/13/24 10:30) Shakiness Medication List - Last Reconciled 04/13/24 by Laz Soto MD calcium citrate-vitamin D3 500 mg-12.5 mcg (500 unit) tabs PO escitalopram oxalate 10 mg PO DAILY folic acid 0.8 mg PO DAILY lorazepam 0.5 mg PO DAILY PRN raloxifene (Evista) 60 mg PO DAILY vitamin B complex (B Complex-Vitamin B12 tablet) 1 tab PO DAILY HPI Comments Details: 67 YO Female with PMHx MNG previously followed by Dr. Merino is seen in consultation at the request of PCP for Osteoporosis. First diagnosed in this yr . Received no treatment in the past No history of pathologic fracture or ONJ. Has several servings of dietary calcium per day in the form of cheese, cottage cheese, salmon . Takes Calcium supplement 600 mg daily in divided doses. Takes ? IU of Vitamin D daily. Denies ever using PPI, anticoagulant, antiepileptic or glucocorticoid medication. Does weight bearing exercise 2-3 days per week in the form of brenda lifting . 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 UTD on dental cleanings and sees dentist every 6 months. No planned upcoming dental work or extractions. DXA dated 01/22/23 :FINDINGS: AP SPINE L1-L2 (excluding L3 and L4): The data of L1-L4 has been changed to exclude the L3 and L4 vertebral bodies, because degenerative changes at these levels may cause overestimation of lumbar spine density. BMD 0.833 g/cm2, Z-score -1.0, T-score -2.8, osteoporosis. LEFT FEMUR, NECK: BMD 0.775 g/cm2, Z-score -0.3, T-score -1.9, osteopenia. LEFT FEMUR, TOTAL: BMD 0.809 g/cm2, Z-score -0.2, T-score -1.6, osteopenia. IDENTIFIED RISK FACTORS: Parental hip fracture. Current smoker. Menopause. HISTORY OF FRACTURE: None listed. MEDICATIONS: Calcium supplement and/or multivitamin. Vitamin D. MM/XR DEXA axial skeleton IMPRESSION: 1. DIAGNOSIS: Osteoporosis based on the lowest T-score value of -2.8 in the lumbar spine applying World Health Organization criteria. Labs: [facility] Medical History Menopausal vaginal dryness Smoking Multinodular thyroid Palpitations Osteopenia Encounter to establish care Surgical History No pertinent past surgical history Family History Mother Age: 89 Breast CA Heart valve replaced Father No problems noted. Other Mental health disorder Social History Housing: Condominium Alcohol intake: current Alcohol intake frequency: a few times a week Alcohol type: wine Patient Tobacco Use Status: Current everyday Tobacco user Tobacco use type: Cigarette Cigarette Packs Per Day: 0.5 Cigarettes Per Day: 10 Years Smoked: 40 e-Cigarette/Vaping Use: Never Used Second Hand Smoke Exposure: No service: No Current occupational status: retired Sexual orientation: Straight/Heterosexual Gender identity: Female Cognitive needs: No Hearing needs: No Vision needs: Yes (reading glasses) Female Reproductive History Menstrual Age of Menarche: 13 Physical Exam Vital Signs: Last Vital Signs Pulse 96 04/13/24 10:27 BP 144/78 H 04/13/24 10:27 BMI result Body Mass Index 23.6 Assessment & Plan Assessment & Plan (1) Osteoporosis: Code(s): M81.0 - Age-related osteoporosis without current pathological fracture Category: Medical Plan: This 67-year-old white female found to have osteoporosis. Secondary workup was negative. Currently on raloxifene Will continue raloxifene. Will check urine NTX when available Orders: Orders XR DEXA axial skeleton 9 Months M81.0 - Age-related osteoporosis without current pathological fracture Medications: Refilled raloxifene (Evista) 60 mg PO DAILY 30 tabs 11RF Coding Level of Care Code Est Pt Level 3 (97733) Diagnoses Osteoporosis M81.0
[2024-04-13 10:27] VITALS: BP 144/78; PULSE 96; BMI 23.6
== END 2024-04-13 10:58 | disposition home or self-care (01) ==
PROVIDERS: PCP Nurse Practitioner Family; Visit Provider Internal Medicine Endocrinology, Diabetes & Metabolism
DX: M81.0 Age-related osteoporosis without current pathological fracture (principal)
CPT/HCPCS: 99213

== ENCOUNTER → 2024-04-13 | Outpatient (BNVA) | payer MEDICARE, SELFPAY | PROVIDERS: PCP Nurse Practitioner Family; Visit Provider Internal Medicine Endocrinology, Diabetes & Metabolism | DX: M81.0 Age-related osteoporosis without current pathological fracture (principal); F17.210 Nicotine dependence, cigarettes, uncomplicated; Z78.0 Asymptomatic menopausal state | CPT/HCPCS: 99212 ==

== ENCOUNTER 2024-04-16 10:48 | Outpatient (REF) | payer MEDICARE, SELFPAY ==
[2024-04-22 01:24] LABS: N-Telopeptide 47 (see note); NTXCreaRU 82 mg/dL (20-275)
== END 2024-04-16 10:49 | disposition home or self-care (01) ==
LOC: HO.10HDLNP 10:48
PROVIDERS: Visit Provider Internal Medicine Endocrinology, Diabetes & Metabolism
DX: M81.0 Age-related osteoporosis without current pathological fracture (principal)
CPT/HCPCS: 82523

== ENCOUNTER 2024-04-21 13:46 | Outpatient (REF) | payer MEDICARE, SELFPAY ==
--- NOTE | ~2024-04-21 | MM_ITS ---
EXAMINATION: MM DIAGNOSTIC DIGITAL BREAST TOMOSYNTHESIS, LEFT US BREAST LIMITED, LEFT MAMMOGRAPHY: CLINICAL INFORMATION: 68-year-old female returning for diagnostic left breast mammography and ultrasound to evaluate a potential focus of architectural distortion in the upper inner quadrant of the left breast, approximately 10:00 axis. COMPARISON: Mammography: 02/20/2024, 12/24/2022, 12/17/2021; and from [place], [place] 10/05/2020, 07/22/2019, 04/02/2018, and 04/01/2017. TECHNIQUE: Digital left breast tomosynthesis is performed in the following views: Full-field 3-D left mediolateral view, and spot compression 3-D left CC and MLO views obtained. Computer-aided diagnosis was used for this study. This was followed by targeted left breast ultrasound. FINDINGS: The breasts are heterogeneously dense, which may obscure small masses (ACR BI-RADS breast composition Category c). Within the left breast, approximate 10:00 axis, posterior one third depth, there is a subtle focus of architectural distortion which persists both on the full-field left mediolateral view, as well as the left spot compression CC and MLO views. This is a indeterminant finding and will be evaluated with ultrasound. There are no skin or axillary abnormalities on the left. ULTRASOUND: CLINICAL INFORMATION: Evaluate persistent focus of architectural distortion 10 o'clock axis left breast posterior one third. COMPARISON: No prior left breast ultrasound. TECHNIQUE: Targeted sonographic evaluation left breast was performed using a high frequency linear transducer. Left breast was scanned in the upper inner quadrant with attention to the 10:00 axis abnormality on mammography. Selected archived documentation. FINDINGS: LEFT BREAST: Within the 10:00 axis of the left breast, 6 cm from the nipple, there is a subtle oval hypoechoic shadowing mass measuring 4 x 3 x 4 mm approximately, with no internal color Doppler flow but abutting color flow, and mild surrounding parenchymal distortion. This finding is indeterminate and suspicious. Ultrasound-guided biopsy is recommended. No additional abnormalities noted in the upper outer quadrant left breast. MM/MM tomosynthesis added views L IMPRESSION: -Focus of architectural distortion left breast 10:00 axis, with ultrasound correlate as described. This is indeterminate and ultrasound-guided biopsy is recommended for definitive characterization. -No additional suspicious findings in the left breast. -Overall findings and recommendations were discussed with the patient in detail, who understands the overall plan. OVERALL ASSESSMENT: Mammography: BI-RADS 4 - Suspicious finding Ultrasound: BI-RADS 4 - Suspicious finding RECOMMENDATION: Biopsy recommended
== END 2024-04-21 13:47 | disposition home or self-care (01) ==
LOC: HO.MAMMO 13:46
PROVIDERS: PCP Physician Assistant; Visit Provider Advanced Practice Midwife
DX: N64.89 Other specified disorders of breast (principal)
CPT/HCPCS: 76642; 77061; 77065

== ENCOUNTER → 2024-04-21 14:00 | Outpatient (BNV) | payer MEDICARE, SELFPAY | PROVIDERS: PCP Physician Assistant; Visit Provider Radiology Diagnostic Radiology | DX: R92.8 Other abnormal and inconclusive findings on diagnostic imaging of breast (principal) | CPT/HCPCS: 76642; 77065; G0279 ==

== ENCOUNTER 2024-04-29 10:12 | Outpatient (AMB) | payer MEDICARE, SELFPAY ==
--- NOTE | 2024-04-29 10:24 | A.OFFPC_ITS ---
Vital Signs 04/29/24 10:25 Height 5 ft 4.29 in Weight 140 lb 6 oz BMI 23.9 BP 130/82 Blood Pressure Location Lt brachial Position Sitting Respiration 16 Pulse 96 Pulse Source Pulse Oximeter Pulse Oximetry (%) 98 Oxygen Delivery Method Room Air Intake Visit Reasons: Discuss Referral Intake Note: Discuss referral for Pulmonary surgical consult. 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 Psych: Doing well with Lexapro 10 mg. Does request today refill lorazepam. States that she sometimes has to take this to help with panic attacks. She is going for a breast biopsy next week and she says that she is not really stressed about this but would like to have Ativan just in case. She also is planning a surprise green party for her and this has been stressful. Endo: Following with Dr. Soto for osteoporosis. Tolerating Evista well. Has bone density ordered in 9 months. At our last visit we did discuss possibly doing lung cancer screening but she wants to hold off on this and will let me know if she changes her mind. She says that she has not yet heard from GI regarding colonoscopy. [facility] Medical History (Updated 04/29/24 @ 13:03 by Sarita Neely PA-C) Abnormal mammogram of left breast Menopausal vaginal dryness Smoking Multinodular thyroid Palpitations Osteopenia Encounter to establish care Surgical History No pertinent past surgical history Family History Mother Age: 89 Breast CA Heart valve replaced Father No problems noted. Other Mental health disorder Social History Housing: Condominium Alcohol intake: current Alcohol intake frequency: a few times a week Alcohol type: wine Patient Tobacco Use Status: Current everyday Tobacco user Tobacco use type: Cigarette Cigarette Packs Per Day: 0.5 Cigarettes Per Day: 10 Years Smoked: 40 Packs Per Year: 20 Packs per year/per ci.00 e-Cigarette/Vaping Use: Never Used Second Hand Smoke Exposure: No service: No Current occupational status: retired Sexual orientation: Straight/Heterosexual Gender identity: Female Cognitive needs: No Hearing needs: No Vision needs: Yes (reading glasses) Female Reproductive History Menstrual Age of Menarche: 13 Questionnaire Thrive Questionnaire Date Thrive assessed: 03/24/24 ZARINA-7 AMB Questionnaire ZARINA-7 Date ZARINA - 7 assessed: 03/24/24 Source: Developed by Drs. Laz Garrison, Britney Austin, Saul Bai and colleagues, with an educational darrell from [employer]. Physical exam (Primary Care) Vital Signs: Last Vital Signs Pulse 96 04/29/24 10:25 Resp 16 04/29/24 10:25 BP 130/82 04/29/24 10:25 Pulse Ox 98 04/29/24 10:25 Oxygen Delivery Method Room Air 04/29/24 10:25 BMI result Body Mass Index 23.9 Tobacco/Smoking Status: Tobacco use Status Tobacco use date assessed 03/24/24 04/29/24 10:27 Patient Tobacco Use Status Current everyday Tobacco 04/29/24 10:27 Tobacco use type Cigarette 04/29/24 10:27 e-Cigarette/Vaping Use Never Used 04/29/24 10:27 Thrive Assessment: Date of Thrive Assessment Date Thrive assessed 03/24/24 04/29/24 10:27 Const Orientation/consciousness: patient oriented x3 HENMT Ears: hearing grossly normal bilaterally Neck Thyroid: Thyroid normal Lymphatic: no lymphadenopathy noted Resp Auscultation: clear to auscultation bilaterally Cardio Rate: regular rate Rhythm: regular rhythm Heart sounds: S1 normal heart sound present and S2 normal heart sound present GI Inspection: Yes normal to inspection Palpation (GI): Soft to palpation and Other GI palpation findings present (nontender, no cva tenderness) Auscultation: normoactive bowel sounds Rectal Exam - Female: deferred Skin General skin exam: no rashes or lesions noted Neuro General: patient oriented x3, gait normal and no focal motor deficits Assessment and Plan Assessment & Plan (1) Abnormal mammogram of left breast: Code(s): R92.8 - Other abnormal and inconclusive findings on diagnostic imaging of breast Plan: We will follow up with her pending test results (2) Generalized anxiety disorder with panic attacks: Code(s): F41.1 - Generalized anxiety disorder; F41.0 - Panic disorder [episodic paroxysmal anxiety] Plan: Refill medication today. Advised patient to follow up in 6 months or sooner if needed. Patient understands and agrees with the plan. Medications: Changed From lorazepam 0.5 mg PO DAILY PRN 30 tabs 0RF anxiety To lorazepam 0.5 mg PO DAILY 30 days PRN 30 tabs 0RF anxiety Refilled lorazepam 0.5 mg PO DAILY PRN 30 tabs 0RF anxiety Coding Level of Care Code Est Pt Level 4 (65943) Complex EM visit Add On G2211 Diagnoses Abnormal mammogram of left breast R92.8 Generalized anxiety disorder with panic attacks F41.1; F41.0
[2024-04-29 10:25] VITALS: BP 130/82; PULSE 96; RESP 16; O2SAT 98; BMI 23.9
== END 2024-04-29 11:36 | disposition home or self-care (01) ==
PROVIDERS: PCP Nurse Practitioner Family; Visit Provider Physician Assistant
DX: R92.8 Other abnormal and inconclusive findings on diagnostic imaging of breast (principal); F41.1 Generalized anxiety disorder; F41.0 Panic disorder [episodic paroxysmal anxiety]
CPT/HCPCS: 99214; G2211

== ENCOUNTER 2024-05-03 08:57 | Outpatient (AMB) | payer MEDICARE, SELFPAY ==
--- NOTE | 2024-05-03 08:55 | A.OFFVIS_ITS ---
Intake Visit Reasons: us bx lt breast upper inner quadrant for assymetry Allergies diphenhydramine [From Benadryl] Adverse Reaction (Intermediate, Verified 04/29/24 10:25) Shakiness HPI Comments Details: Patient presents status post recent mammogram ultrasound demonstrating a suspicious left breast lesion. Patient herself has no breast issues or complaints. She denies any pain, discharge, skin changes or any other breast symptoms. Past medical history right breast biopsy proximally 12 years ago for a benign process. Family history mother had breast cancer treated with lumpectomy. Menstrual history Review of systems noncontributory. Energy, appetite, weight all stable. [facility] Medical History (Updated 04/29/24 @ 13:03 by Sarita Neely PA-C) Menopausal vaginal dryness Smoking Multinodular thyroid Palpitations Osteopenia Encounter to establish care Surgical History (Updated 05/03/24 @ 08:57 by Jayden Boyd MD) Abnormal mammogram of left breast No pertinent past surgical history Family History Mother Age: 89 Breast CA Heart valve replaced Father No problems noted. Other Mental health disorder Social History Housing: Condominium Alcohol intake: current Alcohol intake frequency: a few times a week Alcohol type: wine Patient Tobacco Use Status: Current everyday Tobacco user Tobacco use type: Cigarette Cigarette Packs Per Day: 0.5 Cigarettes Per Day: 10 Years Smoked: 40 e-Cigarette/Vaping Use: Never Used Second Hand Smoke Exposure: No service: No Current occupational status: retired Sexual orientation: Straight/Heterosexual Gender identity: Female Cognitive needs: No Hearing needs: No Vision needs: Yes (reading glasses) Female Reproductive History Menstrual Age of Menarche: 13 Physical Exam Chest Other: Chest sounds bilaterally. Breast exam demonstrates no obvious mass, discharge, adenopathy, or skin changes bilaterally. GI Other: Abdomen is soft, benign Assessment & Plan Assessment & Plan (1) Abnormal mammogram of left breast: Code(s): R92.8 - Other abnormal and inconclusive findings on diagnostic imaging of breast Category: Surgical Plan Patient was scheduled for ultrasound-guided biopsy of the suspicious left breast lesion for later today. She will see me in the proximal weeks time for follow- up. All questions answered. Coding Level of Care Code New Pt Level 4 (77304) Diagnoses Abnormal mammogram of left breast R92.8
== END 2024-05-03 09:00 | disposition home or self-care (01) ==
LOC: HO.HGS 08:57
PROVIDERS: PCP Physician Assistant; Visit Provider Surgery
DX: R92.8 Other abnormal and inconclusive findings on diagnostic imaging of breast (principal)
CPT/HCPCS: 99204

== ENCOUNTER 2024-05-03 09:56 | Outpatient (REF) | payer MEDICARE, SELFPAY ==
--- NOTE | ~2024-05-03 | US_ITS ---
PROCEDURE: US GUIDED BREAST BIOPSY, LEFT CLINICAL INFORMATION: Subtle distortion in left breast 10:00 axis, posterior one third, with ultrasound correlate of small 3 x 3 x 4 mm hypoechoic ill-defined mass 10:00 axis, 6 cm from the nipple, recommended for biopsy. COMPARISON: 04/21/2024 left breast mammography diagnostic views, and left breast ultrasound. PROCEDURAL DETAILS: The details of the procedure, as well as the risks, benefits, and alternatives to the procedure were explained to the patient in detail and all of her questions were answered, after which written informed consent was obtained. Site and side were confirmed. Prior to the procedure, sonography revealed a hypoechoic shadowing mass left breast 10:00 axis, 6 cm from the nipple, measuring 3 x 3 x 4 mm approximately. A time-out was performed, the lesion intended for biopsy was targeted, and the skin of the overlying left breast was then marked, prepped and draped in the usual sterile fashion. Using sonographic guidance, sterile technique, and 1% lidocaine without epinephrine for local anesthesia, multiple core biopsies were obtained through the targeted area with a 14G spring loaded [employer] core biopsy device. There was real-time confirmation of appropriate needle passage. Sampling was documented. At the completion of tissue sampling, a single open coil metallic clip was deposited at the biopsy site. There was no evidence of immediate complication. SPECIMEN: 4 well formed core samples were obtained. DIGITAL POST-PROCEDURE MAMMOGRAPHY: Breast density: The tissue is heterogeneously dense which may obscure small masses. BI-RADS version 5, category C. There are no new mammographic findings demonstrated. The postprocedure 2-view direct digital mammogram reveals satisfactory and accurate positioning of the biopsy clip. No hematoma present. The patient tolerated the procedure well and, after assuring adequate hemostasis, was discharged in good condition after reviewing postbiopsy breast care instructions. Final pathology results are pending. US/US breast ndl core biopsy LT IMPRESSION: 1. No immediate complication from ultrasound-guided percutaneous biopsy left breast 10:00 axis small mass, 6 cm from the nipple. 2. Ultrasound was used to localize and guide marker clip placement. 3. The 2-view direct digital postprocedure mammogram reveals satisfactory positioning of the biopsy clip. 4. Final pathology results are pending. A separate report with final recommendations will be issued once these results are made available. Electronically signed by: Bowen Limon MD 05/03/2024 12:20 PM EDT
[2024-05-03] MEDS: Sodium Bicarbonate 8.4% 50 MEQ/50 ML VIAL SUBCUT (11:49)
[2024-05-03] MEDS: Lidocaine HCl 1 % 20 ML VIAL 9 ML SUBCUT (11:50)
== END 2024-05-03 09:57 | disposition home or self-care (01) ==
LOC: HO.MAMMO 09:56
PROVIDERS: Absent Provider Advanced Practice Midwife; PCP Physician Assistant; Visit Provider Surgery
DX: C50.212 Malignant neoplasm of upper-inner quadrant of left female breast (principal)
CPT/HCPCS: 19083; 77061; 77065; 88305; 88342; 88360; 99202; A4648; C1894

== ENCOUNTER → 2024-05-03 10:00 | Outpatient (BNV) | payer MEDICARE, SELFPAY | PROVIDERS: Absent Provider Advanced Practice Midwife; PCP Physician Assistant; Visit Provider Radiology Diagnostic Radiology | DX: R92.8 Other abnormal and inconclusive findings on diagnostic imaging of breast (principal) | CPT/HCPCS: 19083; 77065 ==

== ENCOUNTER 2024-05-11 09:36 | Outpatient (AMB) | payer MEDICARE, SELFPAY ==
--- NOTE | 2024-05-11 09:42 | MHC.OFFVIS ---
Intake Visit Reasons: s/p us bx lt breast upper inner Intake Note: Patient here s/p us lt br needle core bx on 05-03-24. Patient c/o: mild redness. Denies pain. 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 Patient was aware of this diagnosis having rated on the portal. She has no post biopsy issues or complaints. [facility] Medical History Menopausal vaginal dryness Smoking Multinodular thyroid Palpitations Osteopenia Encounter to establish care Surgical History Abnormal mammogram of left breast No pertinent past surgical history Family History Mother Age: 89 Breast CA Heart valve replaced Father No problems noted. Other Mental health disorder Social History Housing: Condominium Alcohol intake: current Alcohol intake frequency: a few times a week Alcohol type: wine Patient Tobacco Use Status: Current everyday Tobacco user Tobacco use type: Cigarette Cigarette Packs Per Day: 0.5 Cigarettes Per Day: 10 Years Smoked: 40 e-Cigarette/Vaping Use: Never Used Second Hand Smoke Exposure: No service: No Current occupational status: retired Sexual orientation: Straight/Heterosexual Gender identity: Female Cognitive needs: No Hearing needs: No Vision needs: Yes (reading glasses) Female Reproductive History Menstrual Age of Menarche: 13 Physical Exam Chest Other: Chest sounds bilaterally, HS 1 in 2. No evidence of any periclavicular cervical or axillary adenopathy bilaterally. Bilateral breast exam negative. Patient has ecchymosis at the biopsy site but no other issues there. No obvious mass, discharge, or skin changes with the breast. Assessment & Plan Assessment & Plan (1) Breast cancer, left: Code(s): C50.912 - Malignant neoplasm of unspecified site of left female breast Category: Surgical Plan A lengthy discussion was had with the patient regarding therapeutic options which range from lumpectomy and sentinel lymph node biopsy to mastectomy. Patient is an ideal candidate for the former. The risks, benefits, and alternatives of sentinel lymph node biopsy and lumpectomy were reviewed with the patient and included but not limited to bleeding, infection, recurrence, numbness, pain, scarring, need for re-excision based on pathology results and the patient wishes to proceed. All questions answered. Patient will were required localizer placement by breasts Radiology and nuclear med study day prior. In the meantime, patient has a positive family history with her mother having had breast cancer, and is a candidate for genetic testing. Arrangements were made for this as well.. Apparently, there is a significant can delay in scheduling these cases secondary to radiologist availability for localizer placement. Coding Level of Care Code Est Pt Level 5 (90203) Diagnoses Breast cancer, left C50.912
== END 2024-05-11 10:41 | disposition home or self-care (01) ==
PROVIDERS: PCP Physician Assistant; Visit Provider Surgery
DX: C50.912 Malignant neoplasm of unspecified site of left female breast (principal)
CPT/HCPCS: 99215

== ENCOUNTER → 2024-05-11 09:36 | Outpatient (BNVA) | payer MEDICARE, SELFPAY | PROVIDERS: PCP Physician Assistant; Visit Provider Surgery | DX: C50.912 Malignant neoplasm of unspecified site of left female breast (principal) | CPT/HCPCS: 99212 ==

== ENCOUNTER 2024-05-24 09:54 | Outpatient (REF) | payer MEDICARE, SELFPAY ==
--- NOTE | ~2024-05-24 | MM_ITS ---
EXAMINATION: MM ULTRASOUND GUIDED RFID LOCALIZATION BREAST, LEFT POSTPROCEDURAL MAMMOGRAPHY, LEFT CLINICAL INFORMATION: 68 year female, biopsy proven lobular carcinoma left breast 10:00 axis, 6 cm from the nipple. Estimated size is 3 x 3 x 4 mm. For RFID localization. COMPARISON: 05/03/2024 ultrasound-guided left breast biopsy. 04/21/2024 left breast diagnostic mammography and ultrasound. 02/20/2024 bilateral screening mammography. TECHNIQUE NEEDLE LOC: Proper informed consent is obtained from the patient after discussion of the procedure, potential risks and complications, and alternatives including declining the procedure today. Patient was given an opportunity for questions. The patient appeared to understand. The patient consented to the procedure and signed the consent form. GUIDANCE: Ultrasound. APPROACH: Medial Lateral. TARGET: Hydromark open coil clip inside tiny hypoechoic mass. ANESTHESIA: carbonated lidocaine 1%: 2 mL. LOCALIZATION SYSTEM: Style[employer] LOCallizer Wire-Free Guidance System with 12g needle applicator. RADIOFREQUENCY TAG: ID # [id number] DERMATOTOMY: Single 1 mm skin-mally dermatotomy performed. RF Tag ID confirmed with LOCalizer Guidance System prior to placement. The skin is prepped and local anesthesia administered. The needle was positioned directly deep to and abutting the clip/mass, and RFID tag deployed. Subsequent mammographic CC and ML views demonstrate the LOCalizer RF tag to reside immediately adjacent to the biopsy clip and small mass. Placement is ideal. The patient tolerated the procedure well and had no immediate complications. Dressing placed and home instructions reviewed. MM/MM tomosynthesis diagnostic LT IMPRESSION: -Status post left breast RFID localization. -Final CC and ML images are appropriately labeled for OR reference. Electronically signed by: Bowen Limon MD 05/24/2024 11:16 AM EDT
--- NOTE | ~2024-05-24 | US_ITS ---
EXAMINATION: MM ULTRASOUND GUIDED RFID LOCALIZATION BREAST, LEFT POSTPROCEDURAL MAMMOGRAPHY, LEFT CLINICAL INFORMATION: 68 year female, biopsy proven lobular carcinoma left breast 10:00 axis, 6 cm from the nipple. Estimated size is 3 x 3 x 4 mm. For RFID localization. COMPARISON: 05/03/2024 ultrasound-guided left breast biopsy. 04/21/2024 left breast diagnostic mammography and ultrasound. 02/20/2024 bilateral screening mammography. TECHNIQUE NEEDLE LOC: Proper informed consent is obtained from the patient after discussion of the procedure, potential risks and complications, and alternatives including declining the procedure today. Patient was given an opportunity for questions. The patient appeared to understand. The patient consented to the procedure and signed the consent form. GUIDANCE: Ultrasound. APPROACH: Medial Lateral. TARGET: Hydromark open coil clip inside tiny hypoechoic mass. ANESTHESIA: carbonated lidocaine 1%: 2 mL. LOCALIZATION SYSTEM: FAB BAG LOCallizer Wire-Free Guidance System with 12g needle applicator. RADIOFREQUENCY TAG: ID # [id number] DERMATOTOMY: Single 1 mm skin-mally dermatotomy performed. RF Tag ID confirmed with LOCalizer Guidance System prior to placement. The skin is prepped and local anesthesia administered. The needle was positioned directly deep to and abutting the clip/mass, and RFID tag deployed. Subsequent mammographic CC and ML views demonstrate the LOCalizer RF tag to reside immediately adjacent to the biopsy clip and small mass. Placement is ideal. The patient tolerated the procedure well and had no immediate complications. Dressing placed and home instructions reviewed. US/US breast needle loc LT IMPRESSION: -Status post left breast RFID localization. -Final CC and ML images are appropriately labeled for OR reference. Electronically signed by: Bowen Limon MD 05/24/2024 11:16 AM EDT
[2024-05-24] MEDS: Sodium Bicarbonate 8.4% 50 MEQ/50 ML VIAL SUBCUT (10:55)
[2024-05-24] MEDS: Lidocaine HCl 1 % 20 ML VIAL 9 ML SUBCUT (10:56)
== END 2024-05-24 09:55 | disposition home or self-care (01) ==
LOC: HO.MAMMO 09:54
PROVIDERS: PCP Physician Assistant; Visit Provider Surgery
DX: C50.912 Malignant neoplasm of unspecified site of left female breast (principal); R92.8 Other abnormal and inconclusive findings on diagnostic imaging of breast
CPT/HCPCS: 19285; 77061; 77065; C1819

== ENCOUNTER → 2024-05-24 10:00 | Outpatient (BNV) | payer MEDICARE, SELFPAY | PROVIDERS: PCP Physician Assistant; Visit Provider Radiology Diagnostic Radiology | DX: D05.02 Lobular carcinoma in situ of left breast (principal) | CPT/HCPCS: 19285; 77065 ==

== ENCOUNTER 2024-05-25 12:54 | Outpatient (AMB) | payer MEDICARE, SELFPAY ==
[2024-05-25 12:55] VITALS: BP 130/72; PULSE 96; BMI 23.2
--- NOTE | 2024-05-25 12:55 | A.OFFVIS_ITS ---
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 In the past, she was seen regarding aortic stenosis. Per echocardiogram in 2021, moderately calcified aortic valve with mild stenosis. Patient has been recently diagnosed with breast cancer and she needs lumpectomy. This has been scheduled for next week. Hence she has been referred back. She does not have any cardiac symptoms. No angina or shortness of breath or in fact anything cardiac sounding. Unlimited exercise tolerance. Smoker. [facility] Medical History (Updated 05/25/24 @ 13:17 by Raymond Knapp MD) Anxiety Dyslipidemia Aortic valve stenosis, nonrheumatic Menopausal vaginal dryness Smoking Multinodular thyroid Palpitations Osteopenia Surgical History Hx of left breast biopsy Family History Mother Age: 89 Breast CA Heart valve replaced Father No problems noted. Other Mental health disorder Social History Housing: Condominium Are you a primary physician primary care sports medicine to a significant other at home: No Do you presently have visiting nurse or other home services: No Alcohol intake: current Alcohol intake frequency: a few times a week Alcohol t ype: wine Patient Tobacco Use Status: Current everyday Tobacco user Tobacco use type: Cigarette Cigarette Packs Per Day: 0.5 Cigarettes Per Day: 10 Years Smoked: 40 e-Cigarette/Vaping Use: Never Used Second Hand Smoke Exposure: No service: No Current occupational status: retired Sexual orientation: Straight/Heterosexual Gender identity: Female Cognitive needs: No Hearing needs: No Vision needs: Yes (reading glasses) Female Reproductive History Menstrual Age of Menarche: 13 Review of Systems Const Denies chills, Denies fatigue, Denies fever(s), Denies weight gain and Denies weight loss ENT Denies dizziness Card Denies chest pain, Denies leg edema, Denies lightheadedness, Denies palpitations, Denies dyspnea on exertion, Denies orthopnea and Denies other Resp Denies cough and Denies dyspnea on exertion GI Denies hematochezia and Denies change in stool character Musc Denies abnormal gait, Denies muscle weakness, Denies numbness, Denies radiating pain into limb and Denies tingling Neuro Denies abnormal gait, Denies dizziness, Denies numbness and Denies tingling Endo Denies fatigue and Denies palpitations Physical Exam Vital Signs: Last Vital Signs Pulse 96 05/25/24 12:55 BP 130/72 05/25/24 12:55 BMI result Body Mass Index 23.2 Const General: comfortable and no acute distress Orientation/consciousness: patient oriented x3 HEENT Other: Unremarkable Head: Yes normal to inspection Neck Neck: Yes normal visual inspection Chest Chest palpation & inspection: normal inspection of the chest Resp Auscultation: clear to auscultation bilaterally Cardio Palpation: normal PMI Heart sounds: S1 normal heart sound present, S2 normal heart sound present, no gallops, Murmur heart sound present systolic II/ and at the right sternal border and no rubs GI Palpation (GI): Soft to palpation Back/Spine/Pelvis Other: unremarkable Skin General skin exam: no rashes or lesions noted Neuro General: patient oriented x3 Extrem General: Yes normal to inspection Psych Mental Status: mental status grossly normal Office Procedures EKG Details: EKG with underlying sinus rhythm at 96/Min; no significant ST-T changes and otherwise unremarkable. [place]. [address]-[id number], Complete Assessment & Plan Assessment & Plan (1) Nonrheumatic aortic (valve) stenosis: Code(s): I35.0 - Nonrheumatic aortic (valve) stenosis Category: Medical (2) Preoperative cardiovascular examination: Code(s): Z01.810 - Encounter for preprocedural cardiovascular examination Category: Medical Plan In the last echocardiogram from 2021, moderately calcified aortic valve with mild stenosis. Preserved LVEF at 65-70%. Due to upcoming breast surgery, we will recheck echocardiogram. Addendum to be made after review of the above. Orders: Orders CA echo transthoracic complete Today I35.0 - Nonrheumatic aortic (valve) stenosis Coding Level of Care Code Est Pt Level 3 (98436) Diagnoses Nonrheumatic aortic (valve) stenosis I35.0 Preoperative cardiovascular examination Z01.810 CPT Codes EKG - CPT: 13431-[id number], Complete ([id number])
== END 2024-05-25 13:15 | disposition home or self-care (01) ==
PROVIDERS: PCP Physician Assistant; Visit Provider Internal Medicine
DX: I35.0 Nonrheumatic aortic (valve) stenosis (principal); Z01.810 Encounter for preprocedural cardiovascular examination
CPT/HCPCS: 93010; 99213

== ENCOUNTER → 2024-05-25 12:54 | Outpatient (BNVA) | payer MEDICARE, SELFPAY | PROVIDERS: PCP Physician Assistant; Visit Provider Internal Medicine | DX: Z01.810 Encounter for preprocedural cardiovascular examination (principal); I35.0 Nonrheumatic aortic (valve) stenosis; F17.210 Nicotine dependence, cigarettes, uncomplicated | CPT/HCPCS: 93005; 99212 ==

== ENCOUNTER → 2024-05-26 14:50 | Outpatient (REF) | payer MEDICARE, SELFPAY ==
--- NOTE | 2024-05-26 14:53 | CA_ITS ---
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 Normal LV ejection fraction of 60-65% with impaired relaxation filling pattern 2. Mild aortic stenosis 3. Normal RV systolic pressure 4. No gross pericardial effusion Findings Left Ventricle Normal left ventricular size, thickness, and systolic function. The visually estimated ejection fraction is between 60-65%. Spectral Doppler is indicative of an impaired relaxation filling pattern. E/E prime ratio is between 8 and 15 consistent with indeterminate filling pressures. Right Ventricle Normal right ventricular cavity size and systolic function. Atria The left atrium is likely dilated. There is no evidence of interatrial shunt. The right atrium is normal in size. Aortic Valve There is mild calcification of the aortic valve. There is mild aortic valve stenosis. The peak aortic gradient is 14 mmHg.The mean gradient is 8 mmHg. The aortic valve area is 1.95 cm2. There is no aortic valve regurgitation. Mitral Valve There is mild anterior and moderate posterior mitral leaflet thickening. There is mild mitral annular calcification. There is trace mitral valve regurgitation. There is no mitral valve stenosis. Pulmonic Valve The pulmonic valve is likely normal. Tricuspid Valve Normal tricuspid valve structure. There is trace tricuspid valve regurgitation. The right ventricular systolic pressure is normal. The right ventricular systolic pressure is 19 mmHg. Normal right atrial pressure. There is no evidence of pulmonary hypertension. Great Vessels All visible segments of the aorta are normal in size. The pulmonary artery was not well visualized. There is no dilatation of the ascending aorta measuring 3.10 cm. Venous The inferior vena cava is normal in size and collapses greater than 50% with inspiration. Pericardium/Pleural There is no evidence of pericardial effusion. Prior Study Comparison No significant change compared to prior study dated: 08/19/2022. Measurements 2D Linear Measurements IVSd: 0.85 0.6-0.9/0.6-1.0 cm LVIDd: 4.24 3.9-5.3/4.2-5.9 cm LVIDd Index: 2.54 2.4-3.2/2.2-3.1 cm/m2 LVIDs: 2.98 2.0-3.6 cm LVPWd: 0.89 0.7-1.1 cm Ao Root: 3.00 2.1-3.5 cm LA Diam: 3.00 2.7-3.8/3.0-4.0 cm LAIDs Index: 1.80 1.5-2.3 cm/m2 LV Mass: 143.46 67-162/88-224 g LV Mass Index: 85.91 43-95/49-115 g/m2 LVOT Diam: 2.00 3.0+(-)1.3 cm Mitral Valve MV VTI: 0.32 MV Pk Surjit: 1.18 MV Mn Surjit: 0.70 MV Pk Grad: 6.00 MV Mn Grad: 2.00 MV Pk E: 1.02 MV PK A: 1.19 MV Decel Time: 104.00 E/A: 0.90 E'Lateral: 9.25 E'Medial: 6.31 E/E' Med: 16.20 E/E' Lat: 11.00 PHT: 31.00 MVA PHT: 7.10 MVA Continuity: 2.54 Decel [place]: 9.81 Aortic Valve AoV Pk Surjit: 1.89 AoV Mn Surjit: 1.27 AoV VTI: 0.41 AoV Pk Grad: 14.00 Aov Mn Grad: 8.00 BREE Cont.VTI: 1.95 LVOT LVOT Pk Surjit: 1.20 LVOT Mn Surjit: 0.71 LVOT VTI: 0.26 LVOT Pk Grad: 6.00 LVOT Mn Grad: 3.00 LVOT Diam: 2.00 LVOT Area: 3.14 Diastolic Function MV Pk E: 1.02 MV Pk A: 1.19 E/A: 0.90 E'Medial: 6.31 E/E' Med: 16.20 E' Laterial: 9.25 E/E' Lat: 11.00 Tricuspid Valve TR Pk Surjit: 2.01 TR Pk Grad: 16.00 RA Press: 3.00 RVSP: 19.00 Great Vessels Aorta Ao Root-2D: 3.00 2.0-3.7 cm Ao Asc: 3.10 2.1-3.4 cm Pulmonary Valve PV Pk Surjit: 1.09 Peak PV Grad: 5.00 Updated in Other Vendor System with Status of Final Surendra Rivera MD electronically signed on 05/27/2024 10:52:59 AM with status of Final
== END ==
LOC: HO.CARD 14:50
PROVIDERS: Visit Provider Internal Medicine
DX: I35.0 Nonrheumatic aortic (valve) stenosis (principal)
CPT/HCPCS: 93306

== ENCOUNTER → 2024-05-26 14:53 | Outpatient (BNV) | payer MEDICARE, SELFPAY | PROVIDERS: Visit Provider Internal Medicine Cardiovascular Disease | DX: I35.0 Nonrheumatic aortic (valve) stenosis (principal); I35.8 Other nonrheumatic aortic valve disorders; I34.81 Nonrheumatic mitral (valve) annulus calcification | CPT/HCPCS: 93306 ==

== ENCOUNTER → 2024-06-02 10:48 | Outpatient (REF) | payer MEDICARE, SELFPAY ==
--- NOTE | ~2024-06-02 | NM_ITS ---
RADIONUCLIDE BREAST LYMPHOSCINTIGRAPHY CLINICAL INFORMATION: C50.912 - Malignant neoplasm of unspecified site of left female breast COMPARISON: None. TECHNIQUE: A total of 5 mCi technetium 99m sulfur colloid in divided doses was injected in the left breast by Dr. Boyd. Images of the left breast breast and axilla in the anterior, left anterior oblique, and left lateral projections were obtained with simultaneous visualization of the body silhouette using a cobalt flood source, with the patient positioned between the flood source and the gamma camera. FINDINGS: A sentinal node is well visualized in the left axilla. Multiple second echelon nodes are visualized in the left axilla NM/NM sentinel node w imaging IMPRESSION: A discrete sentinel node in the left axilla is well visualized. Following this imaging study, the patient was transported to the operating room for a probe guided lymph node resection. Electronically signed by: Foreign Lozano MD 06/02/2024 03:02 PM EDT
== END ==
LOC: HO.NUCMED 10:48
PROVIDERS: PCP Physician Assistant; Visit Provider Surgery
DX: C50.912 Malignant neoplasm of unspecified site of left female breast (principal)
CPT/HCPCS: 78195; A9541

== ENCOUNTER 2024-06-03 07:10 | Day surgery (SDC) | payer MEDICARE, SELFPAY ==
[2024-05-24 11:48] VITALS: BMI 23.7
--- NOTE | 2024-06-02 09:18 | MHC.SHP ---
Pre-Procedural Eval Section A - 24 Hr Update-Section A only Date of Service: 06/02/24 The patient is an INPATIENT: No Changes since office visit: No Cold of Flu in the past 2 weeks, No New Medical Problems, No Changes in Medication and No Patient answered all questions Section B - Complete if H&P > 30 days Chief Complaint: Malignant neoplasm of unspecified site of left Allergies: Allergies Allergy/AdvReac Type Severity Reaction Status Date / Time diphenhydramine AdvReac Intermediate Shakiness Verified 05/11/24 09:44 [From Dulce] Review of Systems Sugical H&P ROS: Negative: Constitution, Cardiovascular, Respiratory, Neurological, Psychiatric, Hem-Onc, Allergic/Immunologic, Gastrointestinal, Genitourinary, Musculoskeletal, Integumentary, Endocrine and Eyes/Ears/Nose/Throat Exam Surgical H&P Exam: Normal: HEENT, Normal: Heart, Normal: Lungs, Normal: Extremities, Normal: Abdomen, Normal: Skin and Normal: Neurological Plan I have reviewed the history and physical and performed a pertinent physical examination on my patient. No changes have occurred unless specified. Time Spent With Patient Time: Total time managing care of this patient today ____ minutes.
--- NOTE | ~2024-06-03 | MM_ITS ---
EXAMINATION: MM SPECIMEN X-RAY BREAST, LEFT BREAST CLINICAL INDICATION: Lobular carcinoma left breast 10:00 axis, 6 cm from the nipple, estimated size 3 x 3 x 4 mm. Excision specimen. COMPARISON: Localization left breast 05/24/2024. TECHNIQUE: Single radiograph of the left excised breast tissue is performed using digital mammography. FINDINGS: The specimen shows the small 3 x 3 x 4 mm mass, RFID tag, and open coil clip contained within the specimen. Results were called to Dr. Boyd in the operating room at the time of imaging. Electronically signed by: Bowen Limon MD 06/04/2024 08:03 AM EDT
--- NOTE | 2024-06-03 08:00 | HO.ANESPROP2 ---
Documented by User: Ying Alvarez NP 06/02/24 11:59 HPI - Anesthesia Eval Consult details Narrative: 68yo F for Left Breast Lumpectomy w/LOCalizer, [place] Node Biopsy Follows [facility] for mild Aortic Stenosis. Optimized per last office visit note 05/2024 [facility] Active Problems Active Problems: All Active Problems Preoperative cardiovascular examination (Acute) Breast cancer, left (Acute) Generalized anxiety disorder with panic attacks (Acute) Abnormal mammogram of left breast (Acute) Osteoporosis (Acute) Post-menopausal (Acute) Nonrheumatic aortic (valve) stenosis (Acute) Aortic valve calcification (Acute) Heart murmur (Acute) Hyperglycemia (Acute) Dyslipidemia (Acute) Eczema (Acute) Anxiety (Acute) Postmenopausal estrogen deficiency (Acute) Thyromegaly (Acute) Menopausal vaginal dryness (Acute) Smoking (Acute) Multinodular thyroid (Acute) Past Medical History Medical History (Updated 06/03/24 @ 07:50 by Elaine Courtney RN) Pilonidal cyst Anxiety Dyslipidemia Aortic valve stenosis, nonrheumatic Menopausal vaginal dryness Smoking Multinodular thyroid Palpitations Osteopenia Family History Family History Mother Age: 89 Breast CA Heart valve replaced Father No problems noted. Other Mental health disorder Surgical History Surgical History Hx of left breast biopsy Social History Social History Housing: Condominium Are you a primary adult daycare coordinator to a significant other at home: No Do you presently have visiting nurse or other home services: No Alcohol intake: current Alcohol intake frequency: a few times a week Alcohol type: wine Patient Tobacco Use Status: Current everyday Tobacco user Tobacco use type: Cigarette Cigarette Packs Per Day: 0.5 Cigarettes Per Day: 10 Years Smoked: 40 e-Cigarette/Vaping Use: Never Used Second Hand Smoke Exposure: No Use of substances other than those prescribed or required for medical reasons: Yes Substance Use Type Other:: occasional edibles Spiritual Healthcare Practices: none Oriental Orthodox Healthcare Practices: none Cultural Healthcare Practices: none Are you DNR?: No Advance Directives: No (spouse is primary contact) Advance Directives Information Provided: Yes (patient states is in process of doing HCP, etc.) Advance Directives on File: No Recently lost weight without trying: No Eating poorly because of decreased appetite: No Nutrition Risks: No Nutritional Risk Patient : No FDLMP: N/A : No (N/A) Poor oral hygiene: No service: No Current occupational status: retired Sexual orientation: Straight/Heterosexual Gender identity: Female Cognitive needs: No Hearing needs: No Vision needs: Yes (reading glasses) Meds Allergies Allergy/AdvReac Type Severity Reaction Status Date / Time diphenhydramine AdvReac Intermediate Shakiness Verified 05/11/24 09:44 [facility] Home Medications ?Medication ?Instructions ?Recorded ?Confirmed ?Last Taken ?Type calcium citrate 500 mg-vitamin D3 1 tab PO QAM 10/14/23 05/25/24 Unknown History 12.5 mcg (500 unit) chewable tablet escitalopram oxalate 10 mg tablet 10 mg PO QAM 05/24/24 05/25/24 Unknown History folic acid 800 mcg tablet 0.8 mg PO QAM 05/24/24 05/25/24 Unknown History vitamin B complex 1 tab PO QAM 05/24/24 05/25/24 Unknown History Exam Height,Weight and Vital Signs: Height 5 ft 4 in Weight 62.596 kg Pertinent Lab Results Pertinent Lab Results: Laboratory Tests 04/12/24 09:23 WBC 6.9 Hgb 14.8 Hct 42.3 Plt Count 230 Sodium 137 Potassium 4.2 Chloride 103 Carbon Dioxide 28 BUN 13 Creatinine 0.78 Narrative Narrative: EKG 05/2024 sinus rhythm at 96/Min; no significant ST-T changes and otherwise unremarkable. Normal [place] and corrected QT. ECHO 05/2024 Conclusions: - 1. Normal LV ejection fraction of 60-65% with impaired relaxation filling pattern 2. Mild aortic stenosis 3. Normal RV systolic pressure 4. No gross pericardial effusion Assessment and Plan Assessment Anesthesia Assessment: Chart Reviewed Documented by User: Caitlin Handley DO 06/03/24 08:05 [facility] Past Medical History Medical History (Updated 06/03/24 @ 07:50 by Elaine Courtney RN) Pilonidal cyst Anxiety Dyslipidemia Aortic valve stenosis, nonrheumatic Menopausal vaginal dryness Smoking Multinodular thyroid Palpitations Osteopenia Family History Family History Mother Age: 89 Breast CA Heart valve replaced Father No problems noted. Other Mental health disorder Family history of problems with anesthesia: No Surgical History Surgical History Hx of left breast biopsy History of Problems with Anesthesia: No Social History Social History Housing: Condominium Are you a primary adult daycare coordinator to a significant other at home: No Do you presently have visiting nurse or other home services: No Alcohol intake: current Alcohol intake frequency: a few times a week Alcohol type: wine Patient Tobacco Use Status: Current everyday Tobacco user Tobacco use type: Cigarette Cigarette Packs Per Day: 0.5 Cigarettes Per Day: 10 Years Smoked: 40 e-Cigarette/Vaping Use: Never Used Second Hand Smoke Exposure: No Use of substances other than those prescribed or required for medical reasons: Yes Substance Use Type Other:: occasional edibles Spiritual Healthcare Practices: none Oriental Orthodox Healthcare Practices: none Cultural Healthcare Practices: none Are you DNR?: No Advance Directives: No (spouse is primary contact) Advance Directives Information Provided: Yes (patient states is in process of doing HCP, etc.) Advance Directives on File: No Recently lost weight without trying: No Eating poorly because of decreased appetite: No Nutrition Risks: No Nutritional Risk Patient : No FDLMP: N/A : No (N/A) Poor oral hygiene: No service: No Current occupational status: retired Sexual orientation: Straight/Heterosexual Gender identity: Female Cognitive needs: No Hearing needs: No Vision needs: Yes (reading glasses) Meds Allergies Allergy/AdvReac Type Severity Reaction Status Date / Time diphenhydramine AdvReac Intermediate Shakiness Verified 05/11/24 09:44 [From Benadryl] Home Medications ?Medication ?Instructions ?Recorded ?Confirmed ?Last Taken ?Type calcium citrate 500 mg-vitamin D3 1 tab PO QAM 10/14/23 05/25/24 Unknown History 12.5 mcg (500 unit) chewable tablet escitalopram oxalate 10 mg tablet 10 mg PO QAM 05/24/24 05/25/24 Unknown History folic acid 800 mcg tablet 0.8 mg PO QAM 05/24/24 05/25/24 Unknown History vitamin B complex 1 tab PO QAM 05/24/24 05/25/24 Unknown History Exam Exam Date and Time: 06/03/24 0800 Airway Mallampati Class: I TM Dist: >3cm Neck ROM: Full Loose/Missing/Broken Teeth: No (patient denies any loose or broken teeth) Heart: S1S2 Lungs: CTAB Assessment and Plan Assessment Anesthesia Assessment: Anesthesia Plan Discussed and Chart Reviewed Final Anesthetic Review Family History of Problems with Anesthesia: No History of Problems with Anesthesia: No NPO: Yes ASA Class: III Final Preanesthetic Review: No Changes in Pt Med Stat, Meds/Allgs Chart Reviewed, Consent Obtained/Reviewed and Anes Risks/Benef Reviewed Patient Risk: Intermediate Procedure Risk: Low Anesthetic Plan Anesthetic Plan: GA and Agree w/ Assess. and Plan Disposition: Standard PACU
[2024-06-03 08:05] VITALS: BP 145/81; PULSE 89; RESP 16; TEMP 37.1; O2SAT 99
[2024-06-03] MEDS: Lactated Ringers 1,000 ML 100 ML IVCONT (08:15)
[2024-06-03 10:05] VITALS: BP 130/79; PULSE 84; RESP 12; TEMP 36.4; O2SAT 97
--- NOTE | 2024-06-03 10:08 | W.PM.OPN ---
Operative Note Operative Note Date of Service: 06/03/24 Narrative: Preoperative diagnosis: [] Subareolar deeply situated left invasive breast cancer Postop diagnosis: [] The same Procedure [] lumpectomy with localizer, sentinel lymph node biopsy with isotope and blue dye Surgeon: [] Oliver Electronic System Engineer: [] [place] Type of Anesthesia: [] General Indication for surgery: [] Patient had uneventful lumpectomy with localizer of retroareolar deeply situated invasive breast cancer. Specimen was marked in tagged confirmed mammographically and sent to pathology as well with grossly clear margins. Three sentinel lymph nodes which were both hot and blue with isotope counts up to 8000 in vivo and exit EBUS in these nodes were uneventfully excised. Findings: [] Patient brought to the operating room, placed on operative table supine position, after an adequate level of general anesthesia was induced, patient underwent prior isotope scanning yesterday and underwent infiltrate tracing Clau areolar early with blue dye under sterile technique and this was massaged for 5 minutes. The left breast and axilla were then prepped and draped in usual sterile fashion. Guided by the localizer chip, Using a supra areolar curvilinear incision, this carried down through skin, subcutaneous tissue, were superior and inferior skin flaps were developed and circumferentially dissection with localizer guidance down to the pectoralis major was performed. Breast tissue was taken off the pectoralis major and circumferentially lumpectomy performed using Bovie. Specimen was tagged and then sent to pathology for specimen taken. Wound was irrigated, secured hemostasis, and then closed using interrupted inverted deep dermal 3-0 Vicryl sutures followed by running subcuticular 4-0 Vicryl suture. Left axilla was approached and again using Tracey counter probe in incision was made in the left axilla and carried down through skin, subcutaneous tissue, and clavipectoral fascia. Blue hot sentinel lymph nodes were identified as noted above with isotope values as noted and dissected out using blunt, sharp, and Bovie. Specimen sent to pathology for permanent specimen taken. Wound was irrigated and secured hemostasis. No further isotope or blue dye nodes were identified. Wound was irrigated, secured hemostasis, and closed in the following manner; clavipectoral fascia was reapproximated using interrupted 3-0 Vicryl suture. Skin was closed using interrupted inverted dermal 3-0 Vicryl sutures followed by Steri-Strips and sterile dressings. Wounds were infiltrated at the beginning at the end of the case with 0.5% Marcaine. Sponge, needle, and instrument counts were reported correct. Patient tolerated the procedure well and emerged from anesthesia stable condition. EBL minimal
[2024-06-03 10:10] VITALS: BP 139/79; PULSE 74; RESP 16; O2SAT 100
[2024-06-03 10:15] VITALS: BP 145/61; PULSE 79; RESP 18; O2SAT 97
[2024-06-03 10:20] VITALS: BP 137/66; PULSE 78; RESP 18; O2SAT 97
[2024-06-03 10:35] VITALS: BP 134/85; PULSE 77; RESP 18; TEMP 36.6; O2SAT 96
--- NOTE | 2024-06-07 07:59 | P.OP_ITS ---
Operative Note Operative Note Date of Service: 06/03/24 Breast [place] Node Biopsy Substrate(s) used for sentinel node biopsy in the non-neoadjuvant setting: Dye and Radiotracer All colored nodes or non-colored nodes present at the end of a dye filled lymphatic channel were removed, if dye was used as the substrate for localization: Yes All significantly radioactive nodes were removed, if radionuclide was used as the substrate for localization: Yes General Surg. - Synoptic Notes Breast [place] Node Biopsy Substrate(s) used for sentinel node biopsy in the non-neoadjuvant setting: Dye and Radiotracer All colored nodes or non-colored nodes present at the end of a dye filled lymphatic channel were removed, if dye was used as the substrate for localization: Yes All significantly radioactive nodes were removed, if radionuclide was used as the substrate for localization: Yes
== END 2024-06-03 10:55 | disposition home or self-care (01) ==
PROVIDERS: PCP Physician Assistant; Visit Provider Surgery
PROC: (CPT 19301; principal; 2024-06-03 10:00)
PROC: (CPT 19301; 2024-06-03 10:00)
DX: C50.912 Malignant neoplasm of unspecified site of left female breast (principal); Z17.0 Estrogen receptor positive status [ER+]; Z79.810 Long term (current) use of selective estrogen receptor modulators (SERMs); M85.80 Other specified disorders of bone density and structure, unspecified site; I35.0 Nonrheumatic aortic (valve) stenosis; R00.2 Palpitations; Z79.899 Other long term (current) drug therapy; Z88.8 Allergy status to other drugs, medicaments and biological substances; F17.210 Nicotine dependence, cigarettes, uncomplicated
CPT/HCPCS: 19301; 38525; 38900; 88307; 88329; 88341; 88342; J0690; J1100; J2250; J2405; J2704; J2795; J3010; Q9968

== ENCOUNTER → 2024-06-03 07:10 | Outpatient (BNV) | payer MEDICARE, SELFPAY | PROVIDERS: PCP Physician Assistant; Visit Provider Surgery | DX: C50.912 Malignant neoplasm of unspecified site of left female breast (principal) | CPT/HCPCS: 19301; 38525; 38900 ==

== ENCOUNTER 2024-06-14 11:38 | Outpatient (AMB) | payer MEDICARE, SELFPAY ==
--- NOTE | 2024-06-14 11:40 | A.OFFVIS_ITS ---
Intake Visit Reasons: S/P Lt brst lumpectomy w/localizer & Lt SN bx Intake Note: Patient here s/p Lt br lumpectomy w/localizer & Lt SN bx on 06-03-2024. Reports incisions healing well. Discuss genetic testing results. Patient c/o: no concerns. Grizzly Worker Required: No Accompanied by: Self / Same As Patient Allergies diphenhydramine [From Benadryl] Adverse Reaction (Intermediate, Verified 06/14/24 11:43) Shakiness HPI Comments Details: Patient presents for follow-up status post lumpectomy and sentinel lymph node biopsy left breast. She is doing quite well. Minimal incisional discomfort. Pathology results were reviewed. [facility] Medical History (Updated 06/03/24 @ 07:50 by Elaine Courtney RN) Pilonidal cyst Anxiety Dyslipidemia Aortic valve stenosis, nonrheumatic Menopausal vaginal dryness Smoking Multinodular thyroid Palpitations Osteopenia Surgical History (Updated 06/14/24 @ 12:07 by Jayden Boyd MD) Hx of left breast biopsy Family History Mother Age: 89 Breast CA Heart valve replaced Father No problems noted. Other Mental health disorder Social History Housing: Condominium Are you a primary child care centre manager to a significant other at home: No Do you presently have visiting nurse or other home services: No Alcohol intake: current Alcohol intake frequency: a few times a week Alcohol type: wine Patient Tobacco Use Status: Current everyday Tobacco user Tobacco use type: Cigarette Cigarette Packs Per Day: 0.5 Cigarettes Per Day: 10 Years Smoked: 40 e-Cigarette/Vaping Use: Never Used Second Hand Smoke Exposure: No service: No Current occupational status: retired Sexual orientation: Straight/Heterosexual Gender identity: Female Cognitive needs: No Hearing needs: No Vision needs: Yes (reading glasses) Female Reproductive History Menstrual Age of Menarche: 13 Physical Exam Chest Other: Breast and axillary incisions very well healed. Assessment & Plan Assessment & Plan (1) Status post left breast lumpectomy: Code(s): Z98.890 - Other specified postprocedural states Category: Surgical (2) History of sentinel lymph node dissection: Code(s): Z98.890 - Other specified postprocedural states Category: Surgical (3) Postop check: Code(s): Z09 - Encounter for follow-up examination after completed treatment for conditions other than malignant neoplasm Category: Surgical Plan Patient w\has been given local wound instructions, and will see me in a few weeks time. In the meantime, we will arrange for on oncology consultation and then eventual radiation therapy consultation as well. Orders: Referrals Hematology & Oncology Referral C50.912 - Malignant neoplasm of unspecified site of left female breast Coding Level of Care Code Global (54796) Diagnoses Status post left breast lumpectomy Z98.890 History of sentinel lymph node dissection Z98.890 Postop check Z09
== END 2024-06-14 12:02 | disposition home or self-care (01) ==
PROVIDERS: PCP Physician Assistant; Visit Provider Surgery
DX: Z98.890 Other specified postprocedural states (principal); Z09 Encounter for follow-up examination after completed treatment for conditions other than malignant neoplasm
CPT/HCPCS: 99024

== ENCOUNTER → 2024-06-14 11:38 | Outpatient (BNVA) | payer MEDICARE, SELFPAY | PROVIDERS: PCP Physician Assistant; Visit Provider Surgery | DX: Z98.890 Other specified postprocedural states (principal) | CPT/HCPCS: 99212 ==

== ENCOUNTER → 2024-06-18 10:06 | Outpatient (BNV) | payer MEDICARE, SELFPAY | PROVIDERS: PCP Physician Assistant; Referring Provider Surgery; Visit Provider Internal Medicine | DX: C50.412 Malignant neoplasm of upper-outer quadrant of left female breast (principal) | CPT/HCPCS: 99205; 99214; G2211 ==

== ENCOUNTER 2024-07-05 10:40 | Outpatient (AMB) | payer MEDICARE, SELFPAY ==
--- NOTE | 2024-07-05 10:41 | A.OFFVIS_ITS ---
Vital Signs 07/05/24 10:46 Height 5 ft 4 in Weight 135 lb BMI 23.2 BP 140/87 H Blood Pressure Location Rt brachial Position Sitting Pulse 130 H Intake Visit Reasons: 3 wk fu Lt brst lumpectomy w/localizer & Lt SN b Intake Note: Patient here s/p 3 wk fu Lt brst lumpectomy w/localizer & Lt SN bx. Yennifer Agarwal radiation oncologist on 07-14-24. Patient c/o: no concerns. Financial Services Specialist Required: No Accompanied by: Self / Same As Patient Allergies diphenhydramine [From Benadryl] Adverse Reaction (Intermediate, Verified 07/05/24 10:47) Shakiness Medication List - Last Reconciled 07/05/24 by Jayden Boyd MD calcium citrate-vitamin D3 500 mg-12.5 mcg (500 unit) 1 tab PO QAM escitalopram oxalate 10 mg PO QAM folic acid 0.8 mg PO QAM lorazepam 0.5 mg PO DAILY PRN 30 days raloxifene (Evista) 60 mg PO QAM vitamin B complex 1 tab PO QAM HPI Comments Details: Patient presents for follow-up. She is doing quite well. She has been seen by Oncology and is also scheduled to follow-up with Radiation Oncology. Molecular testing per oncology still pending. Patient has no incisional issues or complaints. He is otherwise doing very well. [facility] Medical History Pilonidal cyst Anxiety Dyslipidemia Aortic valve stenosis, nonrheumatic Menopausal vaginal dryness Smoking Multinodular thyroid Palpitations Osteopenia Surgical History Hx of left breast biopsy Family History Mother Age: 89 Breast CA Heart valve replaced Father No problems noted. Other Mental health disorder Social History Housing: Condominium Are you a primary child care supervisor to a significant other at home: No Do you presently have visiting nurse or other home services: No Alcohol intake: current Alcohol intake frequency: a few times a week Alcohol type: wine Patient Tobacco Use Status: Current everyday Tobacco user Tobacco use type: Cigarette Cigarette Packs Per Day: 1 Years Smoked: 40 e-Cigarette/Vaping Use: Never Used Second Hand Smoke Exposure: No service: No Current occupational status: retired Sexual orientation: Straight/Heterosexual Gender identity: Female Cognitive needs: No Hearing needs: No Vision needs: Yes (reading glasses) Female Reproductive History Menstrual Age of Menarche: 13 Physical Exam Vital Signs: Last Vital Signs Pulse 130 H 07/05/24 10:46 BP 140/87 H 07/05/24 10:46 BMI result Body Mass Index 23.2 Chest Other: Incision clean dry and intact healing very well Assessment & Plan Assessment & Plan (1) Status post left breast lumpectomy: Code(s): Z98.890 - Other specified postprocedural states Category: Surgical Plan: Adjuvant management per oncology. Patient will see me in 6 months time with follow-up bilateral screening mammography or p.r.n.. Interim she is encouraged to do occasional monthly self-breast exams. All questions answered. Patient will see me as directed or p.r.n.. (2) History of sentinel lymph node dissection: Code(s): Z98.890 - Other specified postprocedural states Category: Surgical (3) Postop check: Code(s): Z09 - Encounter for follow-up examination after completed treatment for conditions other than malignant neoplasm Category: Surgical Plan: See above Plan See above Orders: Orders MM screening mammo BI 6 Months Z98.890 - Other specified postprocedural states Coding Level of Care Code Global (42979) Diagnoses Status post left breast lumpectomy Z98.890 History of sentinel lymph node dissection Z98.890 Postop check Z09
[2024-07-05 10:46] VITALS: BP 140/87; PULSE 130; BMI 23.2
== END 2024-07-05 10:57 | disposition home or self-care (01) ==
PROVIDERS: PCP Physician Assistant; Visit Provider Surgery
DX: Z98.890 Other specified postprocedural states (principal); Z09 Encounter for follow-up examination after completed treatment for conditions other than malignant neoplasm
CPT/HCPCS: 99024

== ENCOUNTER → 2024-07-05 10:40 | Outpatient (BNVA) | payer MEDICARE, SELFPAY | PROVIDERS: PCP Physician Assistant; Visit Provider Surgery | DX: Z09 Encounter for follow-up examination after completed treatment for conditions other than malignant neoplasm (principal); Z98.890 Other specified postprocedural states | CPT/HCPCS: 99212 ==

== ENCOUNTER 2024-12-15 08:46 | Outpatient (AMB) | payer MEDICARE, SELFPAY ==
--- NOTE | 2024-12-15 09:02 | MHC.PC.OV ---
Intake Visit Reasons: CATHERINE IPPE G0402 Intake Note: Medical annual wellness Outreach Associate Required: No Allergies diphenhydramine [From Benadryl] Adverse Reaction (Intermediate, Verified 12/15/24 09:03) Shakiness Tobacco use date assessed: 03/24/24 Dental Screening Dental Screen Date: 03/24/24 [facility] Medical History Pilonidal cyst Anxiety Dyslipidemia Aortic valve stenosis, nonrheumatic Menopausal vaginal dryness Smoking Multinodular thyroid Palpitations Osteopenia Surgical History Hx of left breast biopsy Family History Mother Age: 89 Breast CA Heart valve replaced Father No problems noted. Other Mental health disorder Social History Housing: Condominium Are you a primary primary care nurse practitioner to a significant other at home: No Do you presently have visiting nurse or other home services: No Alcohol intake: current Alcohol intake frequency: a few times a week Alcohol type: wine Patient Tobacco Use Status: Current everyday Tobacco user Tobacco use type: Cigarette Cigarette Packs Per Day: 1 Years Smoked: 40 e-Cigarette/Vaping Use: Never Used Second Hand Smoke Exposure: No service: No Current occupational status: retired Sexual orientation: Straight/Heterosexual Gender identity: Female Cognitive needs: No Hearing needs: No Vision needs: Yes (reading glasses) Female Reproductive History Menstrual Age of Menarche: 13 Questionnaire Thrive Questionnaire Date Thrive assessed: 03/24/24 AUDIT C Alcohol Use Questionnaire (AUDIT-C) 1. How often do you have a drink containing alcohol?: Monthly or less 2. How many drinks containing alcohol do you have on a typical day when you are drinking?: 1 or 2 3. How often do you have six or more drinks on one occasion?: Never Total Score: 1 ZARINA-7 AMB Questionnaire ZARINA-7 Date ZARINA - 7 assessed: 03/24/24 Source: Developed by Drs. Laz Garrison, Britney Austin, Saul Bai and colleagues, with an educational darrell from [employer]. Physical exam (Primary Care) Tobacco/Smoking Status: Tobacco use Status Tobacco use date assessed 03/24/24 04/29/24 10:27 Patient Tobacco Use Status Current everyday Tobacco 06/18/24 13:30 Tobacco use type Cigarette 06/18/24 10:21 e-Cigarette/Vaping Use Never Used 04/29/24 10:27 Thrive Assessment: Date of Thrive Assessment Date Thrive assessed 03/24/24 04/29/24 10:27 Coding
--- NOTE | 2024-12-15 09:08 | A.OFFVIS_ITS ---
Intake Vital Signs 12/15/24 09:18 Height 5 ft 4 in Weight 141 lb BMI 24.2 BP 122/68 Blood Pressure Location Rt brachial Respiration 14 Pulse 97 Pulse Source Pulse Oximeter Pulse Oximetry (%) 99 Oxygen Delivery Method Room Air Intake Visit Reasons: MAWV IPPE G0402 Intake Note: Medical annual wellness. Declined health care proxy today. Drawing Press Operator Required: No Allergies diphenhydramine [From Benadryl] Adverse Reaction (Intermediate, Verified 12/15/24 09:03) Shakiness Medication List - Last Reconciled 12/15/24 by Sarita Neely PA-C calcium citrate-vitamin D3 500 mg-12.5 mcg (500 unit) 1 tab PO QAM escitalopram oxalate 10 mg PO QAM folic acid 0.8 mg PO QAM lorazepam 0.5 mg PO DAILY PRN 30 days vitamin B complex 1 tab PO QAM HPI MAWV IPPE G0402 HPI Details Patient is a 69-year-old female who presents today for MWV. Psych: Doing well with Lexapro 10 mg. States that she sometimes has to take this to help with panic attacks. Endo: Following with Dr. Soto for osteoporosis and multinodular thyroid. Tolerating Evista well. Has bone density scheduled and follow up with Dr. Soto in April. Onc: Currently [place] [facility] for left breast cancer. She did have a lumpectomy and radiation. She trialed tamoxifen but did not tolerate. Does not wish to be on this medication. At our last visit we did discuss possibly doing lung cancer screening but she wants to hold off on this and will let me know if she changes her mind. She says that she has not yet heard from GI regarding colonoscopy.. [facility] Medical History Pilonidal cyst Anxiety Dyslipidemia Aortic valve stenosis, nonrheumatic Menopausal vaginal dryness Smoking Multinodular thyroid Palpitations Osteopenia Surgical History Hx of left breast biopsy Family History Mother Age: 89 Breast CA Heart valve replaced Father No problems noted. Other Mental health disorder Social History Housing: Condominium Are you a primary personal care attendant to a significant other at home: No Do you presently have visiting nurse or other home services: No Alcohol intake: current Alcohol intake frequency: a few times a week Alcohol type: wine Patient Tobacco Use Status: Current everyday Tobacco user Tobacco use type: Cigarette Cigarette Packs Per Day: 1 Years Smoked: 40 e-Cigarette/Vaping Use: Never Used Second Hand Smoke Exposure: No service: No Current occupational status: retired Sexual orientation: Straight/Heterosexual Gender identity: Female Cognitive needs: No Hearing needs: No Vision needs: Yes (reading glasses) Female Reproductive History Menstrual Age of Menarche: 13 Questionnaire Medicare Wellness Checkup What [age] What gender do you identify with?: female During the past 4 weeks, how much have you been bothered by emotional problems such as feeling anxious, depressed, irritable, sad or downhearted, and blue?: see PHQ-9 During the past 4 weeks, has your physical & emotional health limited your social activities with family, friends, neighbors, or groups?: not at all During the past 4 weeks, how much bodily pain have you generally had?: no pain During the past 4 weeks, was someone available to help you if you needed & wanted help?: yes, as much as I wanted During the past 4 weeks, what was the hardest physical activity you could do for at least 2 minutes?: moderate Can you get to places out of walking distance without help? (For eg., can you travel alone on buses, taxis or drive your car?): Yes Can you go shopping for groceries or clothes without someone's help?: Yes Can you prepare your own meals?: Yes Can you do your housework without help?: Yes Because of any health problems, do you need the help of another person with your personal care needs such as eating, bathing, dressing or getting around the house?: No Can you handle your own money without help?: Yes During the past 4 weeks, how would you rate your health in general?: excellent During the past 4 weeks how have things been going for you?: pretty well Are you having difficulties driving your car?: no Do you always fasten your seat belt when you are in a car?: yes, usually During past 4 weeks, have you been bothered by the following: never: Falling or dizzy when standing up, Sexual problems?, Trouble eating well?, Teeth or denture problems?, Problems using the telephone? and Tiredness or fatigue? Have you fallen 2 or more times in the past year?: No Are you afraid of falling?: No Are you a smoker?: yes, and I might quit During the past 4 weeks, how many drinks of wine, beer, or other alcoholic beverages did you have?: 2-5 drinks per week Do you exercise for about 20 minutes 3 or more times a week?: no, I usually do not exercise this much Have you been given information to help with the following?: yes: Keeping track of your medications? and no: Hazards in your house that might hurt you? How often do you have trouble taking medicines the way you have been told to take them?: I always take medicine as prescribed How confident are you that you can control & manage most of your health problems?: very confident What is your race?: White Mini Mental State Exam (MMSE) Orientation What is the (year) (season) (date) (day) (month)?: year (2024), season (spring), date (12/15), day () and month (4) Where are we (state) (county) (town or city) (hospital) (floor)?: state ([place]), county ([place]), town or city ([place]), hospital/clinic ([facility]) and floor (first) Registration Name of 3 unrelated objects clearly and slowly, then ask patient to repeat all 3 of them. (1st repeat determines score. Make sure they can repeat all three): object 1 (Ball ), object 2 (flag) and object 3 (tree) Attention & Calculation (CHOOSE ONE) Ask pt to begin with 100 & count backward by 7. Stop after 5 repeats. If pt cannot ask them to spell the word WORLD backward.: 93, 86 (87), 79 (80), 72 (73) and 65 (67) Recall Ask patient to repeat the 3 items from question #3.: object 1 (ball), object 2 (flag) and object 3 (tree) Language Show patient a wristwatch & ask what it is. Repeat for pencil.: watch and pencil Ask the patient to repeat the phrase 'No ifs, ands, or buts' after you.: correct Ask the patient to 'take a piece of paper with their right hand' 'fold paper in half' 'place paper on floor': take paper in right hand, fold paper in half and place paper on floor Print the sentence 'CLOSE YOUR EYES' on a piece. If patient actually closes eyes then score.: followed written direction Give patient a blank piece of paper & ask to write a sentence. Score if it contains a noun & verb.: sentence contains subject and verb Ask patient to copy figure of intersecting pentagons exactly. Score if all 10 angles & 2 intersects are included.: all 10 angles present & 2 are intersected (Adriel two, not intersecting) Score Score: 30 Activity of Daily Living Bathing - sponge bath, tub bath or shower: receives no assistance (gets in/out by self, if usual bathing means Dressing - getting clothes from closets & drawers, including inner/outer garments & fasteners.: gets clothes & gets completely dressed without help Toileting - going to the 'toilet room' for urine/bowel elimination & cleaning self/arranging clothes: goes to toilet room, cleans self, arranges clothes without help Transfer: moves in & out of bed and chair without help (may use support object) Continence: controls urination/bowel movements completely by self Feeding: feeds self without help Total Score: 0 Information obtained from: patient Using telephone: independent Traveling: independent Shopping: independent Preparing meals: independent Housework: independent Taking medicine: independent Managing money: independent PHQ-9 Over the last 2 weeks, how often have you been bothered by any of the following problems? 1. Little interest or pleasure in doing things: not at all 2. Feeling down, depressed, or hopeless: not at all 3. Trouble falling or staying asleep, or sleeping too much: not at all 4. Feeling tired or having little energy: not at all 5. Poor appetite or overeating: not at all 6. Feeling bad about yourself - or that you are a failure or have let yourself or your family down: not at all 7. Trouble concentrating on things, such as reading the newspaper or watching television: not at all 8. Moving or speaking so slowly that other people could have noticed. Or the opposite - being so fidgety or restless that you have been moving around a lot more than usual: not at all 9. Thoughts that you would be better off or of hurting yourself in some way: not at all Total score: 0 Depression Screening Interpretation: Negative Depression Screening Done: Yes 50306 - PHQ-9 Billing: Yes Source: Developed by Drs. Laz Garrison, Britney Austin, Saul Bai and colleagues, with an educational darrell from [employer]. Physical Exam Vital Signs: Last Vital Signs Pulse 97 12/15/24 09:18 Resp 14 12/15/24 09:18 BP 122/68 12/15/24 09:18 Pulse Ox 99 12/15/24 09:18 Oxygen Delivery Method Room Air 12/15/24 09:18 BMI result Body Mass Index 24.2 Const Orientation/consciousness: patient oriented x3 HEENT Ears: hearing grossly normal bilaterally Neck Thyroid: Thyroid normal Lymphatic: no lymphadenopathy noted Resp Auscultation: clear to auscultation bilaterally Cardio Rate: regular rate Rhythm: regular rhythm Heart sounds: S1 normal heart sound present and S2 normal heart sound present GI Inspection: Yes normal to inspection Palpation (GI): Soft to palpation and Other GI palpation findings present (nontender, no cva tenderness) Auscultation: normoactive bowel sounds Rectal Exam - Female: deferred Skin General skin exam: no rashes or lesions noted Neuro General: patient oriented x3, gait normal and no focal motor deficits Assessment & Plan Assessment & Plan (1) Encounter for Medicare annual wellness exam: Code(s): Z00.00 - Encounter for general adult medical examination without abnormal findings Plan: Health maintenance and labs reviewed. Referral again to GI for colonoscopy (2) Anxiety: Code(s): F41.9 - Anxiety disorder, unspecified Plan: Continue Lexapro (3) Dyslipidemia: Code(s): E78.5 - Hyperlipidemia, unspecified Plan: We will continue with diet modifications and we will monitor. (4) Breast cancer, left: Code(s): C50.912 - Malignant neoplasm of unspecified site of left female breast Plan: Did not tolerate tamoxifen. Following closely with Oncology. Orders: Referrals Gastroenterology Referral Z12.11 - Encounter for screening for malignant neoplasm of colon Quality Reporting (2019) Fall Risk Screening ([facility] 139) Last assessed Fall Risk: 12/15/24 Fall risk assessment: No Falls in past year Depression/Bipolar (159/160/161/177) PHQ-9: Total score: 0 Coding Level of Care Code Medicare Subsequent (G0439) Est Pt Level 3 (07461) Diagnoses Encounter for Medicare annual wellness exam Z00.00 Anxiety F41.9 Dyslipidemia E78.5 Breast cancer, left C50.912 CPT Codes Advance Care Planning - Time spent: 1-15 minutes, not on file ([id number]) Additional Codes PHQ-9 - 68678 - PHQ-9 Billing: Yes ([id number]) Advance Care Planning Advance Care Planning discussion: Declined forms (given forms today to discuss at home) Date of discussion: 12/15/24 Time spent: 1-15 minutes, not on file Did not discuss due to Cultural/Spiritual beliefs: No
--- OUTSIDE RECORDS SUMMARY | 2024-12-15 09:08 | XMS_ITS | Patient Health Record ---
Author Organization [facility] Address [address] [place], [place] [id number] Care Team Providers Care Chemical Research Engineer Name Role Phone Miriam Muñoz Primary Care Provider [phone] Reason For Referral No Information Immunizations Vaccine Route Administration Date Status Comme nts Pfizer-Biontech COVID 19 Vaccine IM Intramuscular 11/23/2020 Administered Tayler carpenter Pfizer-Biontech COVID 19 Vaccine IM Intramuscular 12/14/2020 Administered Susan mcmahan Plan Of Treatment No Information
[2024-12-15 09:18] VITALS: BP 122/68; PULSE 97; RESP 14; O2SAT 99; BMI 24.2
== END 2024-12-15 09:44 | disposition home or self-care (01) ==
LOC: HO.HMCFM 08:47
PROVIDERS: PCP Physician Assistant; Visit Provider Physician Assistant
DX: Z00.00 Encounter for general adult medical examination without abnormal findings (principal); F41.9 Anxiety disorder, unspecified; E78.5 Hyperlipidemia, unspecified; C50.912 Malignant neoplasm of unspecified site of left female breast

== ENCOUNTER → 2024-12-15 08:46 | Outpatient (BNVA) | payer MEDICARE, SELFPAY | PROVIDERS: PCP Physician Assistant; Visit Provider Physician Assistant | DX: Z00.00 Encounter for general adult medical examination without abnormal findings (principal); M81.0 Age-related osteoporosis without current pathological fracture; E04.2 Nontoxic multinodular goiter; F41.9 Anxiety disorder, unspecified; E78.5 Hyperlipidemia, unspecified; C50.912 Malignant neoplasm of unspecified site of left female breast | CPT/HCPCS: 96127 ==

== ENCOUNTER 2024-12-21 09:42 | Outpatient (REF) | payer MEDICARE, SELFPAY ==
--- OUTSIDE RECORDS SUMMARY | 2024-12-21 10:59 | XMS_ITS | Patient Health Record ---
Author Organization [facility] Address [address] [place], [place] [id number] Care Team Providers Care Director Of Acquisitions Name Role Phone Miriam Muñoz Primary Care Provider [phone] Reason For Referral No Information Immunizations Vaccine Route Administration Date Status Comme nts Pfizer-Biontech COVID 19 Vaccine IM Intramuscular 11/23/2020 Administered Tayler carpenter Pfizer-Biontech COVID 19 Vaccine IM Intramuscular 12/14/2020 Administered Susan mcmahan Plan Of Treatment No Information
== END 2024-12-21 09:43 | disposition home or self-care (01) ==
LOC: HO.MAMMO 09:42
PROVIDERS: PCP Physician Assistant; Visit Provider Surgery
DX: Z13.89 Encounter for screening for other disorder (principal)

== ENCOUNTER 2024-12-23 08:05 | Outpatient (REF) | payer MEDICARE, SELFPAY ==
--- NOTE | ~2024-12-23 | MM_ITS ---
EXAMINATION: MM DIAGNOSTIC DIGITAL BREAST TOMOSYNTHESIS, BILATERAL CLINICAL INFORMATION: History of left breast lobular carcinoma status post lumpectomy. COMPARISON: Mammography: Comparison is made with relevant prior exams. TECHNIQUE: Digital breast mammography with tomosynthesis is performed in both the craniocaudal and mediolateral oblique views along with computer-aided detection (CAD). FINDINGS: The breasts are heterogeneously dense, which may obscure small masses (ACR BI-RADS breast composition Category c). Left: Post lumpectomy changes in the left breast are stable. There are no significant masses, abnormal calcifications, or other abnormalities. Right: Marker clip in the retroareolar region. Circumscribed oval mass in the lower inner breast has been waxing and waning on prior imaging previously demonstrated to be a simple cyst on prior ultrasound. No suspicious calcifications masses or other abnormal findings. Results are provided to the patient at time of visit by the technologist. MM/MM tomosynthesis diagnostic BI IMPRESSION: Left: Post lumpectomy changes are benign. Right: Marker clip and oval masses previous study demonstrated to be a simple cyst. Benign. ASSESSMENT: BI-RADS BI-RADS 2 - Benign Findings RECOMMENDATION: 1 year F/U This patient's information was entered into a reminder system with a target due date for their next mammogram. Electronically signed by: Stacia Hoyos DO 12/23/2024 02:29 PM EDT
--- OUTSIDE RECORDS SUMMARY | 2024-12-23 08:14 | XMS_ITS | Patient Health Record ---
Author Organization [facility] Billing Info Address [address] [place] [id number] Support Name Relationship Address Phone Foreign Perez Emergency Contact [address] [place] [address] June Perez Guarantor Unknown [phone] Allergies Allergen (clinical drug ingredient) Drug/Non Drug Allergy documented on EMR Reaction Allergy Type Onset Date Status diphenhydramine Benadryl jumpy Drug Allergy A ctive Reason For Referral No Information Medications Medication SIG (Take, Route, Frequency, Duration) Notes Start Date End Date Status Red Yeast Rice 600 MG as directed Orally BID Active Fish Oil 1000 MG 1 capsule Orally Daily Active Progesterone Micronized 100 MG 1 capsule at bedtime Orally Daily for 90 Active Vitamin C 500 MG as directed Orally O nce a day Active Calcium + D3 1 tablet with a meal Orally Once a day Active Flaxseed Oil 1200 MG as directed Orally Daily Active Multivitamin - as directed Orally O nce a day Active Estradiol 0.05 MG/24HR APPLY 1 PATCH TOP ICALLY TO THE SKIN 2 TIMES A WEEK for 83 Active Lorazepam 0.5 MG 1 tablet as needed O rally Daily for 90 days prn 07/03/2021 Active Escitalopram Oxalate 10 MG TAKE 1 TABLET BY MOUTH EVERY DAY for 90 Active Vitamin B12 1000 MCG 1 tablet Orally Onc e a day Active Folic Acid 800 MCG 1 tablet Orally Daily Active Turmeric 500 MG as directed Orally Daily Active Immunizations Vaccine Route Administration Date Status Comme nts FLU (Past vaccine of unknown type) Unknown 07/08/2016 Administered TDAP (Past vaccine of unknown type) Unknown 05/08/2010 Administered PNEUMOCOCCAL 13 CONJ ([id number]) IM Intramuscular 03/21/2017 Administered zFLU 4V (FLUZONE QUAD), 3 YRS+, NO PRES - ALL PAYORS IM Intramuscular 07/09/2018 Administered ZOSTER (SHINGRIX) IM Intramuscular 07/27/2019 Administered zFLU 4V (FLUZONE QUAD), 6MO+ (0.5 ML), NO PRES - ALL PAYORS IM Intramuscular 07/27/2019 Administered ZOSTER (SHINGRIX) IM Intramuscular 09/27/2019 Administered zFLU 4V (FLUZONE QUAD), 6MO+ (0.5 ML), NO PRES - ALL PAYORS IM Intramuscular 06/30/2020 Administered zCOVID-19 (Pfizer-BioNTech Purple Cap Comirnaty) 12+yrs, NO PRES Unknown 11/23/2020 Administered zCOVID-19 (Pfizer-BioNTech Purple Cap Comirnaty) 12+yrs, NO PRES Unknown 12/14/2020 Administered zFLU 4V (FLUARIX QUAD), 6 MO+, NO PRES - ALL PAYORS IM Intramuscular 07/12/2021 Administered Social History Tobacco Use: Social History Observation Description Date Details (start date - stop date) Current some da y smoker NA - NA Tobacco Status: Question Answer Notes Patient is a current some day smoker Problems Problem Type SNOMED Code ICD Code Onset Dates Problem Status W/U Status Risk Notes Problem 70985129 Hyperglycemia (R73.9) Active confirmed Problem 848516828 Dyslipidemia (E78.5) Active confirmed Problem 34378353 Dermatitis (L30.9) Active confirmed Problem 167510661 Well woman exam with routine gynecological exam (Z01.419) Active confirmed Problem 039041445 Estrogen deficiency (E28.39) Active confirmed Problem 354134611 Elevated hemoglobin (D58.2) Active confirmed Problem 62164921 Anxiety (F41.9) Active confirmed Problem Adult health examination (348077718) Adult general medical exam (Z00.00) Active confirmed Problem 59841579 Postmenopausal estrogen deficiency (Z78.0) Active confirmed Problem 60173375 Eczema, unspecified type (L30.9) Active confirmed Problem 580873230 Mild depression (F32.0) Active confirmed Problem 464370276 Osteopenia, unspecified location (M85.80) Active confirmed Problem 43686422 Thyromegaly (E01.0) Active confirmed Problem 338769020 BMI 22.0-22.9, adult (Z68.22) Active confirmed Problem 881408031 Screening for breast cancer (Z12.31) Active confirmed Problem 364396062 Screening breast examination (Z12.31) Active confirmed Plan Of Treatment Future Test Test Name Order Date US-THYROID (63390) 03/24/2019 Insurance Providers Payer Name Payer Address Payer Phone Subscriber Number Group Number Insured Name Patient Relationship to Insured Coverage Start Date Coverage End Date MEDICARE [place] PART B [address] [facility] STEFANY GLOVER [id number] June Perez Self - patient is the insured 1 1 [employer] OPTIONS [facility] [address] [place] [id number] June Perez Self - patient is the insured 1 1 Medical (General) History Medical History History ICD Code Osteopenia Anxiety Eczema Moles hx of thyroid goiter Surgical History Surgery Date(Month/Year) cyst removal 1997 vein surgery- varicose 2013
--- OUTSIDE RECORDS SUMMARY | 2024-12-23 08:15 | XMS_ITS | Patient Health Record ---
Author Organization [facility] Address [address] [place], [place] [id number] Care Team Providers Care Hand Candle Molder Name Role Phone Miriam Muñoz Primary Care Provider Reason For Referral No Information Immunizations Vaccine Route Administration Date Status Comme nts Pfizer-Biontech COVID 19 Vaccine IM Intramuscular 11/23/2020 Administered Tayler carpenter Pfizer-Biontech COVID 19 Vaccine IM Intramuscular 12/14/2020 Administered Susan mcmahan Plan Of Treatment No Information
== END 2024-12-23 08:06 | disposition home or self-care (01) ==
LOC: HO.MAMMO 08:05
PROVIDERS: PCP Physician Assistant; Visit Provider Surgery
DX: Z85.3 Personal history of malignant neoplasm of breast (principal)
CPT/HCPCS: 77062; 77066

== ENCOUNTER → 2024-12-23 08:15 | Outpatient (BNV) | payer MEDICARE, SELFPAY | PROVIDERS: PCP Physician Assistant; Visit Provider Internal Medicine | DX: Z85.3 Personal history of malignant neoplasm of breast (principal) | CPT/HCPCS: 77066; G0279 ==

== ENCOUNTER 2025-02-08 08:55 | Outpatient (AMB) | payer MEDICARE, SELFPAY ==
--- NOTE | 2025-02-08 08:57 | A.OFFVIS_ITS ---
Vital Signs 3 02/08/25 09:04 Height 5 ft 4 in Weight 136 lb BMI 23.3 BP 172/90 H Blood Pressure Location Rt brachial Position Sitting Pulse 109 H Intake Visit Reasons: 6 month f/up breast exam ( Dr Boyd) Intake Note: Patient is seen in office for 6 month follow up visit, breast exam. Pt c/o: no concerns. Denies breast lumps, rash, nipple discharge. No changes in medical hx since last office visit. 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 Margins were negative and 0 4 sentinel lymph nodes were noted to have metastatic disease. Her Oncotype was 18 (pT1 be N0 (sn)). She subsequently underwent radiation therapy which she tolerated well. She was started on tamoxifen and took it for one-month however stopped the medication due to severe side effects. She is currently on no adjuvant therapy. Her most recent mammogram dated 12/23/2024 revealed post lumpectomy changes in the left breast however no mammographic evidence of malignancy (BI-RADS 2). She feels well and denies any ongoing breast symptoms. She is very happy with her surgical results. [facility] Medical History Pilonidal cyst Anxiety Dyslipidemia Aortic valve stenosis, nonrheumatic Menopausal vaginal dryness Smoking Multinodular thyroid Palpitations Osteopenia Surgical History History of lumpectomy of left breast (06/07/24) Hx of left breast biopsy Family History Mother Age: 90 Breast CA Heart valve replaced Father No problems noted. Other Mental health disorder Social History Housing: Condominium Are you a primary personal caregiver to a significant other at home: No Do you presently have visiting nurse or other home services: No Alcohol intake: current Alcohol intake frequency: a few times a week Alcohol type: wine Patient Tobacco Use Status: Current everyday Tobacco user Tobacco use type: Cigarette Cigarette Packs Per Day: 1 Years Smoked: 40 e-Cigarette/Vaping Use: Never Used Second Hand Smoke Exposure: No service: No Current occupational status: retired Sexual orientation: Straight/Heterosexual Gender identity: Female Cognitive needs: No Hearing needs: No Vision needs: Yes (reading glasses) Female Reproductive History Menstrual Age of Menarche: 13 Review of Systems Const All systems reviewed & are unremarkable except as noted in HPI and below Physical Exam Vital Signs: Last Vital Signs Pulse 109 H 02/08/25 09:04 BP 172/90 H 02/08/25 09:04 BMI result Body Mass Index 23.3 Const General: no acute distress Nutritional Appearance: well nourished Orientation/consciousness: patient oriented x3 Limitations: no limitations Chest Other: Left breast: No skin change, no nipple retraction, no nipple discharge, no palpable mass, no enlarged lymph nodes, well-healed incision in the upper breast and axilla with no seroma or hematoma.. Right breast: No skin change, no nipple retraction, no nipple discharge, no palpable mass, no enlarged lymph nodes Chest/axillae images: 2 1. 2. Resp Effort & Inspection: normal respiratory effort GI Inspection: Yes normal to inspection Skin Other: Warm, dry, no rash Neuro Other: Mobility Assessment: 1. 3 meter assessment time (seconds) 4 2. Gait observations: Normal balance and gait General: patient oriented x3 Extrem Other: No edema Assessment & Plan Assessment & Plan (1) Invasive lobular carcinoma of left breast, stage 1: Code(s): C50.912 - Malignant neoplasm of unspecified site of left female breast Category: Medical Plan 69-year-old female patient returning approximately 9 months post lumpectomy and sentinel node biopsy for an invasive lobular carcinoma of the left breast. She tolerated radiation therapy well and denies any ongoing breast symptoms. She started on tamoxifen however has subsequently stopped the medication due to severe side effects. Examination today revealed no evidence of recurrent disease with well-healed incisions in the left breast. Her most recent mammogram of 12/23/2024 revealed postoperative changes but no mammographic evidence of malignancy (BI-RADS 2). I recommended follow-up examination in 6 months' time. She is welcome to call sooner for any new concerns. Coding Level of Care Code Est Pt Level 3 (45229) Complex EM visit Add On G2211 Diagnoses Invasive lobular carcinoma of left breast, stage 1 C50.912
[2025-02-08 09:04] VITALS: BP 172/90; PULSE 109; BMI 23.3
--- OUTSIDE RECORDS SUMMARY | 2025-02-08 09:34 | XMS_ITS | Patient Health Record ---
Author Organization [facility] Billing Info Address [address] [place] [address] Support Name Relationship Address Phone Foreign Perez Emergency Contact [address] [place] [address] George Pereza Guarantor Unknown [phone] Allergies Allergen (clinical drug ingredient) Drug/Non Drug [...] Vaccine Route Administration Date Status Comme nts PNEUMOCOCCAL 13 CONJ ([id number]) IM Intramuscular 03/21/2017 Administered FLU (Past vaccine of unknown type) Unknown 07/08/2016 Administered TDAP (Past vaccine of unknown type) Unknown 05/08/2010 Administered zFLU 4V (FLUZONE QUAD), 3 YRS+, NO PRES - ALL PAYORS IM Intramuscular 07/09/2018 Administered zFLU 4V (FLUARIX QUAD), 6 MO+, NO PRES - ALL PAYORS IM Intramuscular 07/12/2021 Administered ZOSTER (SHINGRIX) IM Intramuscular 07/27/2019 Administered ZOSTER (SHINGRIX) IM Intramuscular 09/27/2019 Administered zFLU 4V (FLUZONE QUAD), 6MO+ (0.5 ML), NO PRES - ALL PAYORS IM Intramuscular 07/27/2019 Administered zFLU 4V (FLUZONE QUAD), 6MO+ (0.5 ML), NO PRES - ALL PAYORS IM Intramuscular 06/30/2020 Administered zCOVID-19 (Pfizer-BioNTech Purple Cap Comirnaty) 12+yrs, NO PRES Unknown 11/23/2020 Administered zCOVID-19 (Pfizer-BioNTech Purple Cap Comirnaty) 12+yrs, NO PRES Unknown 12/14/2020 Administered Social History Tobacco Use: Social History Observation Description Date Details (start date - stop date) Current some da y smoker NA - NA Tobacco Status: Question Answer Notes Patient is a current some day smoker Problems Problem Type SNOMED Code ICD Code Onset Dates Problem Status W/U Status Risk Notes Problem 00716964 Hyperglycemia (R73.9) Active confirmed Problem 431792553 Dyslipidemia (E78.5) Active confirmed Problem 74045534 Dermatitis (L30.9) Active confirmed Problem 030102890 Well woman exam with routine gynecological exam (Z01.419) Active confirmed Problem 954028789 Estrogen deficie ncy (E28.39) Active confirmed Problem 706561966 Elevated hemoglo bin (D58.2) Active confirmed Problem 19155961 Anxiety (F41.9) Active confirmed Problem Adult general medical exam (Z00.00) Active confirmed Problem 09282088 Postmenopausal estrogen deficiency (Z78.0) Active confirmed Problem 20989412 Eczema, unspecif ied type (L30.9) Active confirmed Problem 886951680 Mild depression (F32.0) Active confirmed Problem 447354471 Osteopenia, unspecified location (M85.80) Active confirmed Problem 05366135 Thyromegaly (E01.0) Active confirmed Problem 987777889 BMI 22.0-22.9, adult (Z68.22) Active confirmed Problem 940233319 Screening for breast cancer (Z12.31) Active confirmed Problem 286424033 Screening breast examination (Z12.31) Active confirmed Plan Of Treatment Future Test Test Name Order Date US-THYROID (76228) 03/24/2019 Insurance Providers Payer Name Payer Address Payer Phone Subscriber Number Group Number Insured Name Patient Relationship to Insured Coverage Start Date Coverage End Date MEDICARE [place] PART B [address] [facility] STEFANY [place] [id number] June Perez Self - patient is the insured 1 1 [employer] HE[employer] C[employer] OPTIONS [facility] [address] [place], [place] [id number] June Perez Self - patient is the insured 1 1 Medical (General) History Medical History History ICD Code Osteopenia Anxiety Eczema Moles hx of thyroid goiter Surgical History Surgery Date(Month/Year) cyst removal 1997 vein surgery- varicose 2013
== END 2025-02-08 09:15 | disposition home or self-care (01) ==
LOC: HO.HGS 08:56
PROVIDERS: PCP Physician Assistant; Visit Provider Surgery
DX: C50.912 Malignant neoplasm of unspecified site of left female breast (principal)
CPT/HCPCS: 99213; G2211

== ENCOUNTER → 2025-02-08 08:55 | Outpatient (BNVA) | payer MEDICARE, SELFPAY | PROVIDERS: PCP Physician Assistant; Visit Provider Surgery | DX: C50.912 Malignant neoplasm of unspecified site of left female breast (principal) | CPT/HCPCS: 99212 ==

== ENCOUNTER 2025-02-25 10:16 | Outpatient (REF) | payer MEDICARE, SELFPAY ==
--- NOTE | ~2025-02-25 | MM_ITS ---
EXAMINATION: DXA BONE DENSITY AXIAL HISTORY: M81.0 - Age-related osteoporosis without current pathological fracture TECHNIQUE: goviral Dual energy absorptiometry (DEXA) of the lumbar spine, total left hip, and femoral neck was performed. COMPARISON: Comparison is made with the prior examination dated 01/22/2023. FINDINGS: The bone mineral density of the lumbar spine is 0.953, corresponding to a T-score of -1.9, and a Z-score of -0.1. This is indicative of osteopenia. This represents a BMD change of -0.2% compared to the prior exam. This is not statistically significant. The bone mineral density of the left total hip is 0.778, corresponding to a T-score of -1.8, and a Z-score of -0.4. This is indicative of osteopenia. This represents a BMD change of -3.8% compared to the prior exam. This is not statistically significant. The bone mineral density of the left femoral neck is 0.779, corresponding to a T-score of -1.9, and a Z-score of -0.2. This is indicative of osteopenia. This represents a BMD change of 0.5% compared to the prior exam. FRACTURE RISK: The FRAX index suggests a ten year probability of major osteoporotic fracture of 18.3%, and of hip fracture 5.2%. MM/XR DEXA axial skeleton IMPRESSION: Based on bone mineral density, and according to World Health Organization (WHO) criteria, the diagnosis is consistent with osteopenia. All bone density values are in grams per centimeter squared (g/cm2). Statistically, 68% of repeat scans fall within 1 SD (+/- 0.010 g/cm2 for AP spine L1-L4) and 1 SD (+/- 0.012 g/cm2 for femur total) FRAX is a trademark of the [employer]'s [place] [employer] Met[employer] Bone Disease, a World Health Organization (WHO) Collaborating Center. Electronically signed by: Laz Latham MD 02/28/2025 07:32 AM EDT
--- OUTSIDE RECORDS SUMMARY | 2025-02-25 10:34 | XMS_ITS | Patient Health Record ---
Author Organization [facility] Billing Info Address [address] [place] [address] Support Name Relationship Address Phone Foreign Perez Emergency Contact [address] [address] June Perez Guarantor Unknown [phone] Allergies Allergen (clinical drug ingredient) Drug/Non Drug [...] vaccine of unknown type) Unknown 07/08/2016 Administered PNEUMOCOCCAL 13 CONJ ([id number]) IM Intramuscular 03/21/2017 Administered TDAP (Past vaccine of unknown type) Unknown 05/08/2010 Administered zCOVID-19 ([employer] Purple Cap Comirnaty) 12+yrs, NO PRES Unknown 11/23/2020 Administered zCOVID-19 (dBMEDx Purple Cap Comirnaty) 12+yrs, NO PRES Unknown 12/14/2020 Administered zFLU 4V (FLUARIX QUAD), 6 MO+, NO PRES - ALL PAYORS IM Intramuscular 07/12/2021 Administered zFLU 4V (FLUZONE QUAD), 3 YRS+, NO PRES - ALL PAYORS IM Intramuscular 07/09/2018 Administered zFLU 4V (FLUZONE QUAD), 6MO+ (0.5 ML), NO PRES - ALL PAYORS IM Intramuscular 07/27/2019 Administered zFLU 4V (FLUZONE QUAD), 6MO+ (0.5 ML), NO PRES - ALL PAYORS IM Intramuscular 06/30/2020 Administered ZOSTER (SHINGRIX) IM Intramuscular 07/27/2019 Administered ZOSTER (SHINGRIX) IM Intramuscular 09/27/2019 Administered Social History Tobacco Use: Social History Observation Description Date Details (start date - stop date) Current some da y smoker NA - NA Tobacco Status: Question Answer Notes Patient is a current some day smoker Problems Problem Type SNOMED Code ICD Code Onset Dates Problem Status W/U Status Risk Notes Problem 90127535 Hyperglycemia (R73.9) Active confirmed Problem 598941471 Dyslipidemia (E78.5) Active confirmed Problem 21939061 Dermatitis (L30.9) Active confirmed Problem 293480776 Well woman exam with routine gynecological exam (Z01.419) Active confirmed Problem 505104737 Estrogen deficie ncy (E28.39) Active confirmed Problem 767319574 Elevated hemoglo bin (D58.2) Active confirmed Problem 50666339 Anxiety (F41.9) Active confirmed Problem Adult general medical exam (Z00.00) Active confirmed Problem 97161770 Postmenopausal estrogen deficiency (Z78.0) Active confirmed Problem 03285391 Eczema, unspecif ied type (L30.9) Active confirmed Problem 353524169 Mild depression (F32.0) Active confirmed Problem 740875001 Osteopenia, unspecified location (M85.80) Active confirmed Problem 97094671 Thyromegaly (E01.0) Active confirmed Problem 500723259 BMI 22.0-22.9, adult (Z68.22) Active confirmed Problem 773311612 Screening for breast cancer (Z12.31) Active confirmed Problem 770458225 Screening breast examination (Z12.31) Active confirmed Plan Of Treatment Future Test Test Name Order Date US-THYROID (85951) 03/24/2019 Insurance Providers Payer Name Payer Address Payer Phone Subscriber Number Group Number Insured Name Patient Relationship to Insured Coverage Start Date Coverage End Date MEDICARE [place] PART B [address] [facility] [place] [id number] June Perez Self - patient is the insured 1 1 [employer] HEALTH C[employer] OPTIONS [facility] [address] [place], [place] [id number] June Perez Self - patient is the insured 1 1 Medical (General) History Medical History History ICD Code Osteopenia Anxiety Eczema Moles hx of thyroid goiter Surgical History Surgery Date(Month/Year) cyst removal 1997 vein surgery- varicose 2013
== END 2025-02-25 10:17 | disposition home or self-care (01) ==
LOC: HO.MAMMO 10:16
PROVIDERS: PCP Physician Assistant; Visit Provider Internal Medicine Endocrinology, Diabetes & Metabolism
DX: M81.0 Age-related osteoporosis without current pathological fracture (principal)
CPT/HCPCS: 77080

== ENCOUNTER → 2025-02-25 10:30 | Outpatient (BNV) | payer MEDICARE, SELFPAY | PROVIDERS: PCP Physician Assistant; Visit Provider Radiology Diagnostic Radiology | DX: E28.39 Other primary ovarian failure (principal) | CPT/HCPCS: 77080 ==

== ENCOUNTER 2025-04-13 10:50 | Outpatient (AMB) | payer MEDICARE, SELFPAY ==
--- NOTE | 2025-04-13 10:53 | MHC.OFFVIS ---
Vital Signs 04/13/25 10:58 Height 5 ft 4.22 in Weight 136 lb 3.931 oz BMI 23.2 BP 124/76 Blood Pressure Location Rt brachial Position Sitting Pulse 96 Pulse Source Pulse Oximeter Pulse Oximetry (%) 98 Oxygen Delivery Method Room Air Intake Visit Reasons: f/u osteoporosis Intake Note: Patient present today for Osteoporosis follow up visit. Last DEXA was on 02/25/2025 at [facility] [place] [place]. Analysis Reporting Developer Required: No Accompanied by: Self / Same As Patient Allergies diphenhydramine (From Benadryl) Adverse Reaction (Intermediate, Verified 04/13/25 10:59) Shakiness HPI Comments Details: 69 YO Female with PMHx MNG previously followed by Dr. Merino is seen in consultation at the request of PCP for Osteoporosis. First diagnosed in this yr . Received no treatment in the past No history of pathologic fracture or ONJ. Has several servings of dietary calcium per day in the form of cheese, cottage cheese, salmon . Takes Calcium supplement 600 mg daily in divided doses. Takes ? IU of Vitamin D daily. Denies ever using PPI, anticoagulant, antiepileptic or glucocorticoid medication. Does weight bearing exercise 2-3 days per week in the form of brenda lifting . Fracture history: No Height loss: No MEDICAL DOCTOR history: menopause at age 55 -Took ERT Denies history of Kidney stones: Has family history of Osteoporosis and hip fracture in mother . UTD on dental cleanings and sees dentist every 6 months. No planned upcoming dental work or extractions. DXA dated 01/22/23 :FINDINGS: AP SPINE L1-L2 (excluding L3 and L4): The data of L1-L4 has been changed to exclude the L3 and L4 vertebral bodies, because degenerative changes at these levels may cause overestimation of lumbar spine density. BMD 0.833 g/cm2, Z-score -1.0, T-score -2.8, osteoporosis. LEFT FEMUR, NECK: BMD 0.775 g/cm2, Z-score -0.3, T-score -1.9, osteopenia. LEFT FEMUR, TOTAL: BMD 0.809 g/cm2, Z-score -0.2, T-score -1.6, osteopenia. IDENTIFIED RISK FACTORS: Parental hip fracture. Current smoker. Menopause. HISTORY OF FRACTURE: None listed. MEDICATIONS: Calcium supplement and/or multivitamin. Vitamin D. MM/XR DEXA axial skeleton IMPRESSION: 1. DIAGNOSIS: Osteoporosis based on the lowest T-score value of -2.8 in the lumbar spine applying World Health Organization criteria. Labs: secondary workup negative. Currently not on reloxifen since 06/2024 when diagnosed with breast cancer. Received 6 wks of RT. Took tamoxifen for 1 mo but couldn't tolerate The patient is a 69-year-old female presenting for follow-up on breast cancer management and bone health. The patient was diagnosed with breast cancer and underwent a lumpectomy followed by six weeks of radiation therapy. She was initially prescribed tamoxifen but discontinued it due to intolerable night sweats. Currently, she is not on any hormone therapy for breast cancer and is considering resuming raloxifene after consulting with her oncologist. The patient has a history of osteopenia, with a recent bone density scan showing a T-score of -1.9, consistent with previous results. She is currently taking calcium and vitamin D supplements to manage her bone health. The patient also has a multinodular goiter, with multiple nodules identified on ultrasound. She has had a biopsy in the past, and there is a recommendation for follow-up with an produce weigher specializing in ultrasound and biopsy such as Dr. Traylor . - Tamoxifen: Discontinued due to night sweats - Raloxifene: Previously tolerated, considering resumption [facility] Medical History Pilonidal cyst Anxiety Dyslipidemia Aortic valve stenosis, nonrheumatic Menopausal vaginal dryness Smoking Multinodular thyroid Palpitations Osteopenia Surgical History History of lumpectomy of left breast (06/07/24) Hx of left breast biopsy Family History Mother Age: 90 Breast CA Heart valve replaced Father No problems noted. Other Mental health disorder Social History Housing: Condominium Are you a primary career technical supervisor to a significant other at home: No Do you presently have visiting nurse or other home services: No Alcohol intake: current Alcohol intake frequency: a few times a week Alcohol type: wine Patient Tobacco Use Status: Current everyday Tobacco user Tobacco use type: Cigarette Cigarette Packs Per Day: 1 Years Smoked: 40 e-Cigarette/Vaping Use: Never Used Second Hand Smoke Exposure: No service: No Current occupational status: retired Sexual orientation: Straight/Heterosexual Gender identity: Female Cognitive needs: No Hearing needs: No Vision needs: Yes (reading glasses) Female Reproductive History Menstrual Age of Menarche: 13 Physical Exam Vital Signs: BMI result Body Mass Index 23.2 Assessment & Plan Assessment & Plan (1) Osteoporosis: Code(s): M81.0 - Age-related osteoporosis without current pathological fracture Category: Medical Plan: This 67-year-old white female found to have osteoporosis. Secondary workup was negative. Currently on raloxifene Will check with oncology to see if can resume roloxifene . I meesaged oncology to see if it would be ok to restart Reloxifene 1. Breast cancer The patient has completed lumpectomy and radiation therapy. She discontinued tamoxifen due to side effects and is considering resuming raloxifene after consulting with her oncologist. Follow-up with the oncologist is planned to discuss the suitability of raloxifene for bone protection. 2. Osteopenia The patient is managing her bone health with calcium and vitamin D supplements. A recent bone density scan shows stable osteopenia. Continued monitoring and dietary calcium intake are recommended. I discussed with the patient the management of her breast cancer, including the discontinuation of tamoxifen due to side effects and the potential resumption of raloxifene for bone protection after consulting with her oncologist. We reviewed her bone health, noting stable osteopenia, and emphasized the importance of calcium and vitamin D supplementation. The patient had an opportunity to ask questions regarding treatment plan. The patient expressed understanding and agreement with the above treatment plan. Patient was informed and verbally consented to the use of an ambient scribe for clinic note documentation during this visit. (2) Multinodular thyroid: Code(s): E04.2 - Nontoxic multinodular goiter Category: Medical Plan: The patient has multiple thyroid nodules with a history of biopsy. Follow-up with an produce weigher Dr. Traylor specializing in ultrasound and biopsy is recom Coding Level of Care Code Est Pt Level 3 (25731) Diagnoses Osteoporosis M81.0 Multinodular thyroid E04.2
[2025-04-13 10:58] VITALS: BP 124/76; PULSE 96; O2SAT 98; BMI 23.2
--- OUTSIDE RECORDS SUMMARY | 2025-04-13 11:32 | XMS_ITS | Patient Health Record ---
Author Organization [facility] Address [address] [place], [place] [address] Care Team Providers Care Telecommunication Operator Name Role Phone Miriam Muñoz Primary Care Provider Reason For Referral No Information Immunizations Vaccine Route Administration Date Status Comme nts Pfizer-Biontech COVID 19 Vaccine IM Intramuscular 11/23/2020 Administered Tayler carpenter Pfizer-Biontech COVID 19 Vaccine IM Intramuscular 12/14/2020 Administered Susan mcmahan Plan Of Treatment No Information
--- OUTSIDE RECORDS SUMMARY | 2025-04-13 11:33 | XMS_ITS | Encounter Summary ---
Author Organization [facility] Address [address] [place] [address] Phone Care Team Providers Care Search Marketing Specialist Name Role Phone Sarita Neely Primary Care Provider [phone] Laura Burroughs MD Unavailable [phone] Raymond Knapp MD Unavailable Manuel Boyd MD Unavailable Encounter Details Date Type Department Care Team (Late st Contact Info) Description 07/22/2024 Documentation [facility] [place] [facility] At [facility] Rad Onc [address] [place] [address] [phone] Vi Sepulveda, RN [address] [place] [address] [email or web address] Social History Tobacco Use Types Packs/Day Years Used Date Smoking Tobacco: Every Day Cigarettes Smokeless Tobacco: Current Alcohol Use Standard Drinks/Week Comments Yes 0 (1 standard drink = 0.6 oz pur e alcohol) Education Answer Date Recorded Are you interested in more education? Not on jerrod e 06/22/2024 Are you concerned about learning? Not on file 06/22/2024 No 06/22/2024 No 06/22/2024 Digital Access Answer Date Recorded No 06/22/2024 No 06/22/2024 Reliable internet access at home? Not on file 06/22/2024 Device with a working camera? Not on file Comments Unknown Sex and Gender Information Value Date Recorded Sex Assigned at Not on file Legal Sex Female 11:32 AM EDT Gender Identity Not on file Sexual Orientation Not on file documented as of this encounter Plan of Treatment Not on file documented as of this encounter Visit Diagnoses Not on filedocumented in this encounter Care Teams Search Marketing Specialist Relationship Specialty Start Date End Date Sarita Neely PA PCP - General Physician Hog Ringer 07/15/24 Laura Burroughs MD [address] [place] [address] [email or web address] 07/15/24 Raymond Knapp MD [address] [address] Cardiology 07/15/24 Manuel Boyd MD [address] [place] [address] General Surgery 07/15/24 documented as of this encounter Additional Source Comments The information contained in this document represents components of the legal health record. It is not the complete legal health record.[facility]
--- OUTSIDE RECORDS SUMMARY | 2025-04-13 11:33 | XMS_ITS | Patient Health Record ---
Author Organization [facility] Billing Info Address [address] [place] [address] Support Name Relationship Address Phone Foreign Perez Emergency Contact [address] [place] [address] June Perez Guarantor Unknown [phone] Allergies Allergen (clinical drug ingredient) Drug/Non Drug [...] type) Unknown 07/08/2016 Administered PNEUMOCOCCAL 13 CONJ ([id number]) IM Intramuscular 03/21/2017 Administered TDAP (Past vaccine of unknown type) Unknown 05/08/2010 Administered zCOVID-19 (Ufora-IntheGlo Purple Cap Comirnaty) 12+yrs, NO PRES Unknown 11/23/2020 Administered zCOVID-19 (Vayusa Purple Cap Comirnaty) 12+yrs, NO PRES Unknown [...] Problem Status W/U Status Risk Notes Problem 62445849 Hyperglycemia (R73.9) Active confirmed Problem 868056887 Dyslipidemia (E78.5) Active confirmed Problem 60958435 Dermatitis (L30.9) Active confirmed Problem 501856858 Well woman exam with routine gynecological exam (Z01.419) Active confirmed Problem 097139013 Estrogen deficie ncy (E28.39) Active confirmed Problem 364266791 Elevated hemoglo bin (D58.2) Active confirmed Problem 70111847 Anxiety (F41.9) Active confirmed Problem Adult general medical exam (Z00.00) Active confirmed Problem 71782037 Postmenopausal estrogen deficiency (Z78.0) Active confirmed Problem 65790608 Eczema, unspecif ied type (L30.9) Active confirmed Problem 487433754 Mild depression (F32.0) Active confirmed Problem 278072997 Osteopenia, unspecified location (M85.80) Active confirmed Problem 06536523 Thyromegaly (E01.0) Active confirmed Problem 590386162 BMI 22.0-22.9, adult (Z68.22) Active confirmed Problem 780168261 Screening for breast cancer (Z12.31) Active confirmed Problem 504522459 Screening breast examination (Z12.31) Active confirmed Plan Of Treatment Future Test Test Name Order Date US-THYROID (21554) 03/24/2019 Insurance Providers Payer Name Payer Address Payer Phone Subscriber Number Group Number Insured Name Patient Relationship to Insured Coverage Start Date Coverage End Date MEDICARE [place] PART B [address] [facility] STEFANY GLOVER [id number] June Perez Self - patient is the insured 1 1 [employer]IONS [facility] [address] [place], [place] [id number] June Perez Self - patient is the insured 1 1 Medical (General) History Medical History History ICD Code Osteopenia Anxiety Eczema Moles hx of thyroid goiter Surgical History Surgery Date(Month/Year) cyst removal 1997 vein surgery- varicose 2013
== END 2025-04-13 11:29 | disposition home or self-care (01) ==
LOC: HO.ENCR 10:51
PROVIDERS: PCP Nurse Practitioner Family; Visit Provider Internal Medicine Endocrinology, Diabetes & Metabolism
DX: M81.0 Age-related osteoporosis without current pathological fracture (principal); E04.2 Nontoxic multinodular goiter
CPT/HCPCS: 99213

== ENCOUNTER → 2025-04-13 10:50 | Outpatient (BNVA) | payer MEDICARE, SELFPAY | PROVIDERS: PCP Nurse Practitioner Family; Visit Provider Internal Medicine Endocrinology, Diabetes & Metabolism | DX: M81.0 Age-related osteoporosis without current pathological fracture (principal); E04.2 Nontoxic multinodular goiter | CPT/HCPCS: 99212 ==

== ENCOUNTER 2025-05-03 13:53 | Outpatient (AMB) | payer MEDICARE, SELFPAY ==
--- NOTE | 2025-05-03 13:57 | MHC.OFFVIS ---
Vital Signs 05/03/25 13:59 Height 5 ft 4 in Weight 135 lb BMI 23.2 BP 148/88 H Blood Pressure Location Rt brachial Position Sitting Pulse 90 Pulse Source Pulse Oximeter Pulse Oximetry (%) 96 Oxygen Delivery Method Room Air Intake Visit Reasons: colo screening Intake Note: New pt for recall colo. Pt states her last colo was well over 10 years ago. Pt typically has cologuards which are routinely negative. CC: Pt denies any GI sx or concerns at this time. Boat Cleaning Supervisor Required: No Accompanied by: Self / Same As Patient Allergies diphenhydramine (From Benadryl) Adverse Reaction (Intermediate, Verified 05/03/25 13:57) Shakiness HPI HPI colo screening: Details: 69 year old? female with past medical history of left breast CA, osteoporosis, nonrheumatic aortic valve stenosis the, heart murmur, hyperglycemia, dyslipidemia, anxiety, thyromegaly is here today for pre colonoscopy screening.? Patient was sent to us by her PCP.? Last colonoscopy over 10 years ago. Cologuard x 3 negative. PCP is sending patient for actual colonoscopy this time.? Patient denies any gastrointestinal symptoms in the past or at present.? Denies any personal or family history of gastrointestinal disease, colon polyps, or CRC.? Denies history of difficulty with sedation or anesthesia in the past.? Negative for history of sleep apnea.? Denies any history of renal, pulmonary, or hepatic disease.? History of aortic stenosis. Patient was seen by Cardiology last May and was clear for breast biopsy with low risk.? No history of infectious? diseases like hepatitis A, B, C, HIV or tuberculosis.? Patient is not on any anticoagulation [facility] Medical History Pilonidal cyst Anxiety Dyslipidemia Aortic valve stenosis, nonrheumatic Menopausal vaginal dryness Smoking Multinodular thyroid Palpitations Osteopenia Surgical History History of lumpectomy of left breast (06/07/24) Hx of left breast biopsy Family History Mother Age: 90 Breast CA Heart valve replaced Father No problems noted. Other Mental health disorder Social History Housing: Condominium Are you a primary care program director to a significant other at home: No Do you presently have visiting nurse or other home services: No Alcohol intake: current Alcohol intake frequency: a few times a week Alcohol type: wine Patient Tobacco Use Status: Current everyday Tobacco user Tobacco use type: Cigarette Cigarette Packs Per Day: 1 Years Smoked: 40 e-Cigarette/Vaping Use: Never Used Second Hand Smoke Exposure: No service: No Current occupational status: retired Sexual orientation: Straight/Heterosexual Gender identity: Female Cognitive needs: No Hearing needs: No Vision needs: Yes (reading glasses) Female Reproductive History Menstrual Age of Menarche: 13 Review of Systems Const Denies weight gain and Denies weight loss ENT Reports no additional complaints, Denies dysphagia and Denies odynophagia Card Reports no additional complaints Resp Reports no additional complaints GI Denies abdominal pain, Denies belching, Denies melena, Denies bloating, Denies change in bowel habits, Denies dysphagia, Denies excessive flatus, Denies dyspepsia, Denies heartburn, Denies diarrhea, Denies loose stools, Denies nausea, Denies odynophagia and Denies vomiting Musc Reports no additional complaints Neuro Reports no additional complaints Psych Reports no additional complaints Endo Reports no additional complaints Physical Exam Vital Signs: Last Vital Signs Pulse 90 05/03/25 13:59 BP 148/88 H 05/03/25 13:59 Pulse Ox 96 05/03/25 13:59 Oxygen Delivery Method Room Air 05/03/25 13:59 BMI result Body Mass Index 23.2 Const General: healthy appearing, no acute distress and well developed Nutritional Appearance: well nourished Orientation/consciousness: patient oriented x3 Resp Effort & Inspection: normal respiratory effort, able to speak in complete sentences, no tracheal deviation and symmetric chest movement Auscultation: clear to auscultation bilaterally Cardio Rate: regular rate GI Inspection: Yes normal to inspection and No distended Palpation (GI): Soft to palpation, not firm, nontender and No hepatosplenomegaly present Auscultation: normal bowel sounds General: Yes no CVA tenderness Back/Spine/Pelvis Back: no CVA tenderness Skin General skin exam: elasticity normal, turgor normal and dry skin Neuro General: patient oriented x3 Psych Appearance: grossly normal Mental Status: mental status grossly normal Assessment & Plan Assessment & Plan (1) Screen for colon cancer: Code(s): Z12.11 - Encounter for screening for malignant neoplasm of colon Plan Patient denies any GI, cardiac or respiratory symptoms.? Denies any issues with anesthesia in the past.? Denies any history of sleep apnea.? No history infectious diseases in the past or present.? Not on any anticoagulation therapy.? No family or personal history of colon cancer or polyps.? Patient denies melena, hematochezia, unintentional weight loss or ribbon like stools.? Discussed at length the pre-procedure,? prep, diet & medications as well as what to expect prior, during and after the procedure.?? Stressed the importance of good bowel prep.? Recommended the use of Vaseline or Calmoseptine OTC & baby wipes with bowel movements to promote comfort.? ?Patient verbalizes understanding and agrees to plan of care.? She was given the opportunity to ask questions and all questions answered.? We will see her after the procedure.? Medications: New polyethylene glycol 3350 (Miralax) As directed by gastroenterology department at [facility] 238 grams PO ONCE 238 grams 0RF Z12.11 - Encounter for screening for malignant neoplasm of colon bisacodyl (Dulcolax (bisacodyl)) take 4 tabs at noon the day before your colonoscopy 20 mg (4 x 5 mg) PO ONCE 4 tabs 0RF constipation 1 day Z12.11 - Encounter for screening for malignant neoplasm of colon Coding Level of Care Code New Pt Level 3 (06403) Diagnoses Screen for colon cancer Z12.11 Time Spent (min) 40 Comment 30 minutes spent with patient and additional 10 minutes spent reviewing her records
[2025-05-03 13:59] VITALS: BP 148/88; PULSE 90; O2SAT 96; BMI 23.2
--- OUTSIDE RECORDS SUMMARY | 2025-05-03 14:47 | XMS_ITS | Patient Health Record ---
Author Organization [facility] Address [address] [place], [place] [address] Care Team Providers Care Bank Reconciliator Name Role Phone Miriam Muñoz Primary Care Provider [phone] Reason For Referral No Information Immunizations Vaccine Route Administration Date Status Comme nts Pfizer-Biontech COVID 19 Vaccine IM Intramuscular 11/23/2020 Administered Tayler carpenter Pfizer-Biontech COVID 19 Vaccine IM Intramuscular 12/14/2020 Administered Susan mcmahan Social History Social History Sexual History: Social Info Question Answer Notes Sexual History Had sex in the past 12 months (vaginal, oral, or anal)? Yes with Women only Use protection? No Have you ever had a Sexually transmitted disease ? No Plan Of Treatment No Information
--- OUTSIDE RECORDS SUMMARY | 2025-05-03 14:47 | XMS_ITS | Encounter Summary ---
Author Organization [facility] Address [address] [place] [address] Phone Care Team Providers Care Records Administrator Name Role Phone Sarita Neely Primary Care Provider [phone] Laura Burroughs MD Unavailable [phone] Raymond Knapp MD Unavailable Manuel Boyd MD Unavailable [phone] Encounter Details Date Type Department Care Team (Late st Contact Info) Description 07/22/2024 Documentation [facility] [place] [facility] Rad Onc [address] [place] [address] [phone] Vi Sepulveda, RN [address] [place], [place] [phone] [email or web address] Social History Tobacco Use Types Packs/Day Years [...] on filedocumented in this encounter Care Teams Records Administrator Relationship Specialty Start Date End Date Sarita Neely PA PCP - General Physician Continuous Pickling Line Pickler 07/15/24 Laura Burroughs MD [address] [place] [address] [email or web address] 07/15/24 Raymond Knapp MD [address] [address] Cardiology 07/15/24 Manuel Boyd MD [address] [place] [id number] General Surgery 07/15/24 documented as of this encounter Additional Source Comments The information contained in this document represents components of the legal health record. It is not the complete legal health record.[facility]
--- OUTSIDE RECORDS SUMMARY | 2025-05-03 14:47 | XMS_ITS | Patient Health Record ---
Author Organization [facility] Billing Info Address [address] [place] [address] Support Name Relationship Address Phone Foreign Perez Emergency Contact [address] [place] [address] June Perez Guarantor Unknown [phone] Allergies Allergen (clinical drug ingredient) Drug/Non Drug [...] type) Unknown 07/08/2016 Administered PNEUMOCOCCAL 13 CONJ ([id number]) IM Intramuscular 03/21/2017 Administered TDAP (Past vaccine of unknown type) Unknown 05/08/2010 Administered zCOVID-19 ([employer]ik[employer] Purple Cap Comirnaty) 12+yrs, NO PRES Unknown 11/23/2020 Administered zCOVID-19 ([facility] Purple Cap Comirnaty) 12+yrs, NO PRES Unknown [...] Problem Status W/U Status Risk Notes Problem 55563623 Hyperglycemia (R73.9) Active confirmed Problem 095472670 Dyslipidemia (E78.5) Active confirmed Problem 21291412 Dermatitis (L30.9) Active confirmed Problem 224430265 Well woman exam with routine gynecological exam (Z01.419) Active confirmed Problem 522690574 Estrogen deficie ncy (E28.39) Active confirmed Problem 898027684 Elevated hemoglo bin (D58.2) Active confirmed Problem 23372916 Anxiety (F41.9) Active confirmed Problem Adult general medical exam (Z00.00) Active confirmed Problem 91286986 Postmenopausal estrogen deficiency (Z78.0) Active confirmed Problem 54513323 Eczema, unspecif ied type (L30.9) Active confirmed Problem 012604035 Mild depression (F32.0) Active confirmed Problem 806325972 Osteopenia, unspecified location (M85.80) Active confirmed Problem 21562837 Thyromegaly (E01.0) Active confirmed Problem 026993105 BMI 22.0-22.9, adult (Z68.22) Active confirmed Problem 873913312 Screening for breast cancer (Z12.31) Active confirmed Problem 813125190 Screening breast examination (Z12.31) Active confirmed Plan Of Treatment Future Test Test Name Order Date US-THYROID (51917) 03/24/2019 Insurance Providers Payer Name Payer Address Payer Phone Subscriber Number Group Number Insured Name Patient Relationship to Insured Coverage Start Date Coverage End Date MEDICARE [place] PART B [address] [facility] STEFANY GLOVER [id number] June Perez Self - patient is the insured 1 1 [employer] HE[employer] C[employer] OPTIONS [facility] [address] [place], [place] [id number] June Perez Self - patient is the insured 1 1 Medical (General) History Medical History History ICD Code Osteopenia Anxiety Eczema Moles hx of thyroid goiter Surgical History Surgery Date(Month/Year) cyst removal 1997 vein surgery- varicose 2013
== END 2025-05-03 14:36 | disposition home or self-care (01) ==
LOC: HO.HGI 13:54
PROVIDERS: PCP Physician Assistant; Visit Provider Nurse Practitioner Family
DX: Z01.818 Encounter for other preprocedural examination (principal); Z12.11 Encounter for screening for malignant neoplasm of colon
CPT/HCPCS: 99024

== ENCOUNTER → 2025-05-03 13:53 | Outpatient (BNVA) | payer MEDICARE, SELFPAY | PROVIDERS: PCP Physician Assistant; Visit Provider Nurse Practitioner Family | DX: Z12.11 Encounter for screening for malignant neoplasm of colon (principal) | CPT/HCPCS: 99212 ==

== ENCOUNTER 2025-06-21 08:53 | Outpatient (AMB) | payer MEDICARE, SELFPAY ==
[2025-06-21 08:56] VITALS: BP 130/78; PULSE 106; O2SAT 98; BMI 23.4
--- NOTE | 2025-06-21 08:56 | MHC.OFFVIS ---
Vital Signs 06/21/25 08:56 Height 5 ft 4 in Weight 136 lb 3.931 oz BMI 23.4 BP 130/78 Blood Pressure Location Lt brachial Position Sitting Pulse 106 H Pulse Source Pulse Oximeter Pulse Oximetry (%) 98 Oxygen Delivery Method Room Air Intake Visit Reasons: MNG Intake Note: Patient present today for MNG office visit. 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 Accompanied by: Self / Same As Patient Allergies diphenhydramine (From Benadryl) Adverse Reaction (Intermediate, Verified 06/21/25 08:59) Shakiness Medication List - Last Reconciled 06/21/25 by Lulu Traylor MD bisacodyl (Dulcolax (bisacodyl)) 20 mg (4 x 5 mg) PO ONCE 1 day calcium citrate-vitamin D3 500 mg-12.5 mcg (500 unit) 1 tab PO QAM escitalopram oxalate 10 mg PO QAM folic acid 0.8 mg PO QAM lorazepam 0.5 mg PO DAILY PRN 30 days polyethylene glycol 3350 (Miralax) 238 grams PO ONCE vitamin B complex 1 tab PO QAM HPI Comments Details: 69-year-old female coming in today for follow up of multinodular thyroid. In the past she was seeing Dr. Merino for multinodular goiter, last addressed March 2023. She also follows at our practice for osteoporosis, last seen April 2025. Was initially diagnosed with multinodular thyroid many years ago. 07/10/2022: Ultrasound thyroid revealed multiple nodules. 12/19/2022: Status post FNA biopsy of the left midpole nodule 1.7 cm, left midpole 3.1 cm nodule and the right midpole 1.5 cm thyroid nodules all were benign cytology. Most recent ultrasound thyroid 10/16/2023: I reviewed the images myself which showed stable size of the nodules with a right superior mid 1.9 cm TR 4 solid hypoechoic nodule this was biopsied before in 2022 and was benign, right inferior 0.8 cm solid isoechoic TR 3 nodule, right inferior 0.7 cm solid hypoechoic TR 4 nodule. A left superior mid 1.5 cm solid hypoechoic nodule with macrocalcifications, this was biopsied before in 2022 and was benign, TR 4 category, left mid inferior 2.5 cm mixed cystic solid isoechoic TR 2 nodule which was previously TR 3 and measured larger at 3.1 cm. This was biopsied before in 2022 and was benign. Patient currently denies heat or cold intolerance, diarrhea or constipation, hair loss, palpitation, anxiety, weight changes, mood changes, low energy, changes in appearance of eyes or vision changes, tremors, increased diaphoresis or dry skin. ? Patient denies any difficulty swallowing, pain on swallowing or voice changes or difficulty breathing. 06/03/2024 she underwent left breast lumpectomy for left breast cancer with adjuvant radiation therapy. Denies having ever used lithium, amiodarone or biotin supplements. Patient denies any family history of thyroid cancer or thyroid disease. Osteoporosis: addressed briefly Prior HPI First diagnosed in 2022 Received no treatment in the past No history of pathologic fracture or ONJ. Denies ever using PPI, anticoagulant, antiepileptic or glucocorticoid medication. 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 UTD on dental cleanings and sees dentist every 6 months. No planned upcoming dental work or extractions. DXA dated 01/22/23 :FINDINGS: AP SPINE L1-L2 (excluding L3 and L4): The data of L1-L4 has been changed to exclude the L3 and L4 vertebral bodies, because degenerative changes at these levels may cause overestimation of lumbar spine density. BMD 0.833 g/cm2, Z-score -1.0, T-score -2.8, osteoporosis. LEFT FEMUR, NECK: BMD 0.775 g/cm2, Z-score -0.3, T-score -1.9, osteopenia. LEFT FEMUR, TOTAL: BMD 0.809 g/cm2, Z-score -0.2, T-score -1.6, osteopenia. IDENTIFIED RISK FACTORS: Parental hip fracture. Current smoker. Menopause. HISTORY OF FRACTURE: None listed. MEDICATIONS: Calcium supplement and/or multivitamin. Vitamin D. MM/XR DEXA axial skeleton IMPRESSION: 1. DIAGNOSIS: Osteoporosis based on the lowest T-score value of -2.8 in the lumbar spine applying World Health Organization criteria. Labs: secondary workup negative. Currently not on reloxifen since 06/2024 when diagnosed with breast cancer. Received 6 wks of RT. Took tamoxifen for 1 mo but couldn't tolerate The patient was diagnosed with breast cancer and underwent a lumpectomy 2023 followed by six weeks of radiation therapy. She was initially prescribed tamoxifen but discontinued it due to intolerable night sweats. last seen by DR. Soto 05/02 and was considering resuming raloxifene after consulting with her oncologist.per messages both teams okay with resuming currently taking calcium and vitamin D supplements to manage her bone health. Bone density scan 02/25/2025 showed osteopenia of the lumbar spine with T-score of-1.9 with improvement in bone density compared to previous examined 2022, osteopenia of the left total hip but T-score of-1.8 with a decrease of 3.8% compared to previous exam, osteopenia of the left femoral neck with T-score of -1.9, with increase of 0.5% compared to previous exam. Overall bone density remained stable. Major osteoporotic FRAX score 18.3%, hip fracture FRAX 5.2%. Physical exam General: sitting comfortably in no acute distress HEENT: normocephalic/atraumatic, Neck: supple, palpable left and right-sided nodules Cardiac: normal heart rate Pulm: normal pulmonary effort Laboratory Tests 04/12/24 09:23 TSH 1.62 US THYROID 10/16/23 CLINICAL INFORMATION: Nontoxic multinodular goiter. COMPARISON: Ultrasound-guided thyroid biopsy 12/19/2022. Thyroid ultrasound 08/15/2022. TECHNIQUE: Linear transducer silva-scale and color Doppler examination with attention to the region of the thyroid. FINDINGS: SIZE: Measurements of the thyroid lobes and nodules are given in sagittal, anteroposterior and transverse dimensions respectively. Right Thyroid Lobe: 5.3 x 1.8 x 1.4 cm, volume 6.8 mL. Previously 5.1 x 1.8 x 1.3 cm, volume 6 mL. Parenchyma: The gland echotexture is homogeneous. Thyroid vascularity is normal. Left Thyroid Lobe: 5.1 x 2.3 x 2.3 cm, volume 14.6 mL. Previously 5.7 x 2.1 x 2.3 cm, volume 14.3 mL. Parenchyma: The gland echotexture is heterogeneous. Thyroid vascularity is normal. Isthmus: 0.3 cm in maximum AP dimension. Previously 0.3 cm. Estimated total number of nodules greater than or equal to 1 cm: 3. Milled Rubber Tender nodules are described as follows: 1. Location: Right superior/mid. Size: 1 x 1.9 x 1 cm, volume 1 mL. Previously: 1.5 x 1.1 x 1.5 cm, volume 1.3 mL. Nodule characteristics: Composition: Solid/almost completely solid (2). Echogenicity: Hypoechoic (2). Shape: Not taller than wide (0). Margins: Smooth (0). Echogenic Foci: None (0). ACR TI-RADS total points: 4 Previous: 4 ACR TI-RADS category: 4 Previous: 4 Significant change in size (>/= 20% in 2 dimensions and minimal increase of 2 mm or 50% or greater increase in volume): Change in features: Change in ACR TI-RADS risk category: 2. Location: Right inferior. Size: 0.8 x 0.7 x 0.6 cm, volume 0.18 mL. Previously: 0.7 x 0.4 x 0.6 cm, volume 0.1 mL. Nodule characteristics: Composition: Solid/almost completely solid (2). Echogenicity: Isoechoic (1). Shape: Not taller than wide (0). Margins: Smooth (0). Echogenic Foci: None (0). ACR TI-RADS total points: 3 Previous: 3 ACR TI-RADS category: 3 Previous: 3 Significant change in size (>/= 20% in 2 dimensions and minimal increase of 2 mm or 50% or greater increase in volume): Change in features: Change in ACR TI-RADS risk category: 3. Location: Right inferior. Size: 0.7 x 0.8 x 0.4 cm, volume 0.13 mL. Previously: 0.7 x 0.6 x 0.4 cm, volume 0.07 mL. Nodule characteristics: Composition: Solid/almost completely solid (2). Echogenicity: Hypoechoic (2). Shape: Not taller than wide (0). Margins: Smooth (0). Echogenic Foci: None (0). ACR TI-RADS total points: 4 Previous: 3 ACR TI-RADS category: 4 Previous: 3 Significant change in size (>/= 20% in 2 dimensions and minimal increase of 2 mm or 50% or greater increase in volume): Change in features: Change in ACR TI-RADS risk category: 4. Location: Left superior/mid. Size: 1.5 x 1.6 x 1.6 cm, volume 2 mL. Previously: 1.7 x 1.2 x 1.5 cm, volume 1.6 mL. Nodule characteristics: Composition: Solid/almost completely solid (2). Echogenicity: Hypoechoic (2). Shape: Not taller than wide (0). Margins: Ill-defined (0). Echogenic Foci: Macrocalcifications (1). ACR TI-RADS total points: 5 Previous: 6 ACR TI-RADS category: 4 Previous: 4 Significant change in size (>/= 20% in 2 dimensions and minimal increase of 2 mm or 50% or greater increase in volume): Change in features: Change in ACR TI-RADS risk category: 5. Location: Left mid/inferior. Size: 2.5 x 2.7 x 2 cm, volume 7.2 mL. Previously: 3.1 x 2.4 x 1.6 cm, volume 6.2 mL. Nodule characteristics: Composition: Mixed cystic and solid (1). Echogenicity: Isoechoic (1). Shape: Not taller than wide (0). Margins: Smooth (0). Echogenic Foci: None (0). ACR TI-RADS total points: 2 Previous: 3 ACR TI-RADS category: 2 Previous: 3 Significant change in size (>/= 20% in 2 dimensions and minimal increase of 2 mm or 50% or greater increase in volume): Change in features: Change in ACR TI-RADS risk category: NODES: No lymphadenopathy is seen in the tissue surrounding the thyroid gland. US/US thyroid IMPRESSION: Enlarged left lobe. Multiple bilateral thyroid nodule stable from previous exam. Nodules 1 and 4 were previously biopsied December 2022. EXAMINATION: DXA BONE DENSITY AXIAL 02/25/25 HISTORY: M81.0 - Age-related osteoporosis without current pathological fracture TECHNIQUE: Trovebox Dual energy absorptiometry (DEXA) of the lumbar spine, total left hip, and femoral neck was performed. COMPARISON: Comparison is made with the prior examination dated 01/22/2023. FINDINGS: The bone mineral density of the lumbar spine is 0.953, corresponding to a T-score of -1.9, and a Z-score of -0.1. This is indicative of osteopenia. This represents a BMD change of -0.2% compared to the prior exam. This is not statistically significant. The bone mineral density of the left total hip is 0.778, corresponding to a T-score of -1.8, and a Z-score of -0.4. This is indicative of osteopenia. This represents a BMD change of -3.8% compared to the prior exam. This is not statistically significant. The bone mineral density of the left femoral neck is 0.779, corresponding to a T-score of -1.9, and a Z-score of -0.2. This is indicative of osteopenia. This represents a BMD change of 0.5% compared to the prior exam. FRACTURE RISK: The FRAX index suggests a ten year probability of major osteoporotic fracture of 18.3%, and of hip fracture 5.2%. MM/XR DEXA axial skeleton IMPRESSION: Based on bone mineral density, and according to World Health Organization (WHO) criteria, the diagnosis is consistent with osteopenia. DXA dated 01/22/23 :FINDINGS: AP SPINE L1-L2 (excluding L3 and L4): The data of L1-L4 has been changed to exclude the L3 and L4 vertebral bodies, because degenerative changes at these levels may cause overestimation of lumbar spine density. BMD 0.833 g/cm2, Z-score -1.0, T-score -2.8, osteoporosis. LEFT FEMUR, NECK: BMD 0.775 g/cm2, Z-score -0.3, T-score -1.9, osteopenia. LEFT FEMUR, TOTAL: BMD 0.809 g/cm2, Z-score -0.2, T-score -1.6, osteopenia. IDENTIFIED RISK FACTORS: Parental hip fracture. Current smoker. Menopause. HISTORY OF FRACTURE: None listed. MEDICATIONS: Calcium supplement and/or multivitamin. Vitamin D. MM/XR DEXA axial skeleton IMPRESSION: 1. DIAGNOSIS: Osteoporosis based on the lowest T-score value of -2.8 in the lumbar spine applying World Health Organization criteria. [facility] Medical History Pilonidal cyst Anxiety Dyslipidemia Aortic valve stenosis, nonrheumatic Menopausal vaginal dryness Smoking Multinodular thyroid Palpitations Osteopenia Surgical History History of lumpectomy of left breast (06/07/24) Hx of left breast biopsy Family History Mother Age: 90 Breast CA Heart valve replaced Father No problems noted. Other Mental health disorder Social History Housing: Condominium Are you a primary healthcare educator to a significant other at home: No Do you presently have visiting nurse or other home services: No Alcohol intake: current Alcohol intake frequency: a few times a week Alcohol type: wine Patient Tobacco Use Status: Current everyday Tobacco user Tobacco use type: Cigarette Cigarette Packs Per Day: 1 Years Smoked: 40 e-Cigarette/Vaping Use: Never Used Second Hand Smoke Exposure: No service: No Current occupational status: retired Sexual orientation: Straight/Heterosexual Gender identity: Female Cognitive needs: No Hearing needs: No Vision needs: Yes (reading glasses) Female Reproductive History Menstrual Age of Menarche: 13 Physical Exam Vital Signs: BMI result Body Mass Index 23.4 Assessment & Plan Assessment & Plan (1) Multinodular thyroid: Code(s): E04.2 - Nontoxic multinodular goiter Category: Medical Plan: 69-year-old female with no family history of thyroid cancer who is coming in today for follow up of multinodular thyroid. Was initially diagnosed with multinodular thyroid many years ago. 07/10/2022: Ultrasound thyroid revealed multiple nodules. 12/19/2022: Status post FNA biopsy of the left midpole nodule 1.7 cm, left midpole 3.1 cm nodule and the right midpole 1.5 cm thyroid nodules all were benign cytology. Most recent ultrasound thyroid 10/16/2023: I reviewed the images myself which showed stable size of the nodules with a right superior mid 1.9 cm TR 4 solid hypoechoic nodule this was biopsied before in 2022 and was benign, right inferior 0.8 cm solid isoechoic TR 3 nodule, right inferior 0.7 cm solid hypoechoic TR 4 nodule. A left superior mid 1.5 cm solid hypoechoic nodule with macrocalcifications, this was biopsied before in 2022 and was benign, TR 4 category, left mid inferior 2.5 cm mixed cystic solid isoechoic TR 2 nodule which was previously TR 3 and measured larger at 3.1 cm. This was biopsied before in 2022 and was benign. No compressive symptoms. Most recent TSH from April 2024 was normal. Plan: -ordered ultrasound of the thyroid to be done in October 2025 prior to follow up in November 2025 this would be 2 years from the last ultrasound -ordered TSH and free T4 to be done prior to next follow up in November 2025 (2) Osteoporosis: Code(s): M81.0 - Age-related osteoporosis without current pathological fracture Category: Medical Qualifiers: Osteoporosis type: age-related Presence of current pathological fracture: without current pathological fracture Qualified Code(s): M81.0 - Age-related osteoporosis without current pathological fracture Plan: 69-year-old female also with a history of osteoporosis diagnosed in 2022. Secondary workup was negative. This was addresses briefly today. The patient has completed lumpectomy and radiation therapy in 2023. She discontinued tamoxifen due to side effects in September 2024 and and at last visit with Dr. Soto plan was to consider resuming raloxifene after consulting with her oncologist. Per discussion with the Oncology in the messages raloxifene was okay to resume. The patient is managing her bone health with calcium and vitamin D supplements. Most recent bone density from February 2025 bone density scan shows stable osteopenia with the improvement in the bone density in the spine. I discussed with the patient the management of her breast cancer, including the discontinuation of tamoxifen due to side effects and the potential resumption of raloxifene for bone protection We reviewed her bone health, noting stable osteopenia, and emphasized the importance of calcium and vitamin D supplementation. Plan: -resume raloxifene 60 mg daily -ordered labs to be done prior to next follow up in November 2025 -next bone density would be due in February 2027 -continue vitamin-D and calcium supplementation Plan I spent 30 minutes in reviewing the record, seeing the patient and documenting in the medical record. Orders: Orders US thyroid 10/17/25 E04.2 - Nontoxic multinodular goiter Free T4 (Free Thyroxine) 10/17/25 E04.2 - Nontoxic multinodular goiter, M81.0 - Age-related osteoporosis without current pathological fracture Albumin Level 10/17/25 E04.2 - Nontoxic multinodular goiter, M81.0 - Age-related osteoporosis without current pathological fracture Thyroid Stimulating Hormone 10/17/25 E04.2 - Nontoxic multinodular goiter, M81.0 - Age-related osteoporosis without current pathological fracture Collagen Type I C-Telopeptide 10/17/25 E04.2 - Nontoxic multinodular goiter, M81.0 - Age-related osteoporosis without current pathological fracture Alkaline Phosphatase Bone 10/17/25 E04.2 - Nontoxic multinodular goiter, M81.0 - Age-related osteoporosis without current pathological fracture Calcium 10/17/25 E04.2 - Nontoxic multinodular goiter, M81.0 - Age-related osteoporosis without current pathological fracture Phosphorus 10/17/25 E04.2 - Nontoxic multinodular goiter, M81.0 - Age-related osteoporosis without current pathological fracture Vitamin D 25-OH Total 10/17/25 E04.2 - Nontoxic multinodular goiter, M81.0 - Age-related osteoporosis without current pathological fracture Creatinine 10/17/25 E04.2 - Nontoxic multinodular goiter, M81.0 - Age-related osteoporosis without current pathological fracture Medications: New raloxifene 60 mg PO DAILY 90 tabs 2RF M81.0 - Age-related osteoporosis without current pathological fracture Patient Instructions: Resume raloxifene 60 mg daily At your upcoming appointment with oncology, please inform them that you are back on the medication Do ultrasound of the thyroid in October 2025, someone we will call you to schedule this, please make sure that this is done a few weeks prior to my next appointment with the you in November 2025. Do fasting 08:00 blood work 2 weeks prior to your next appointment with me in November 2025, orders are already in Coding Level of Care Code Est Pt Level 4 (44638) Diagnoses Multinodular thyroid E04.2 Age-related osteoporosis without current pathological fracture M81.0 Osteoporosis type: age-related Presence of current pathological fracture: without current pathological fracture Time Spent (min) 30
--- OUTSIDE RECORDS SUMMARY | 2025-06-21 09:24 | XMS_ITS | Encounter Summary ---
Author Organization [facility] Address [address] [place] [id number] Phone Care Team Providers Care Roof Mechanic Name Role Phone Sarita Neely Primary Care Provider [phone] Laura Burroughs MD Unavailable [phone] Raymond Knapp MD Unavailable [phone] Manuel Boyd MD Unavailable [phone] Encounter Details Date Type Department Care Team (Late st Contact Info) Description 07/22/2024 Documentation [facility] Rad Onc [address] [place] [address] [phone] Vi Sepulveda, RN [address] [place], [place] [phone] [email or web address] Social History Tobacco Use Types Packs/Day Years [...] on filedocumented in this encounter Care Teams Roof Mechanic Relationship Specialty Start Date End Date Sarita Neely PA [address] [place] [address] PCP - General Physician Tower Erector Helper 07/15/24 Laura Burroughs MD [address] [place] [id number] [email or web address] 07/15/24 Raymond Knapp MD [address] [address] Cardiology 07/15/24 Manuel Boyd MD [address] [place] [id number] General Surgery 07/15/24 documented as of this encounter Additional Source Comments The information contained in this document represents components of the legal health record. It is not the complete legal health record.[facility]
--- OUTSIDE RECORDS SUMMARY | 2025-06-21 09:24 | XMS_ITS | Clinical Summary ---
Author Organization [facility] Address [address] [employer] [facility] [address] [place] [address] Phone Care Team Providers Care Hull Sorter Name Role Phone Sarita Neely Primary Care Provider [phone] Laura Burroughs MD Unavailable [phone] Raymond Knapp MD Unavailable Manuel Boyd MD Unavailable Allergies Active Allergy Reactions Criticality Noted Date Comments Diphenhydramine Hcl Tremor Low 07/15/2024 Medications escitalopram oxalate (LEXAPRO) 10 MG tablet Take 1 tablet by mouth every morning. 4 Active LORazepam (ATIVAN) 0.5 MG tablet Take 1 tablet by mouth once as needed for anxiety. 4 Active PREVIDENT 5000 SENSITIVE 1.1-5 % Pste 4 Active calcium carbonate 500 mg (200 mg elemental) chewable tablet Take 1 tablet by mouth 2 (two) times a day. Not reported as chewable Active cholecalciferol (VITAMIN D3) 25 MCG (1,000 unit) tablet Take 1,000 Units by mouth daily. Active folic acid (FOLVITE) 400 MCG tablet Take 400 mcg by mouth daily. Active cyanocobalamin, vitamin B-12, (B-12 DOTS) 500 MCG tablet Take 500 mcg by mouth daily. Active ascorbic acid, vitamin C, (VITAMIN C) 500 MG tablet Take 500 mg by mouth daily. Active OMEGA 3,6,9 COMBINATION NO.7 ORAL Take by mouth 2 (two) times a day. Fish oil Active MVI, adult formula containing vit K, (MULTIPLE VITAMIN) 3,300 unit- 150 mcg/10 mL injection Inject into the vein daily. Active Active Problems Problem Noted Date Diagnosed Date Malignant neoplasm of upper- inner quadrant of left breast in female, estrogen receptor positive 08/31/2024 Family History Medical History Relation Comments Breast cancer Mother Relation Status Comments Mother Social History Tobacco Use Types Packs/Day Years Used Date Smoking Tobacco: Every Day Cigarettes Smokeless Tobacco: Current Tobacco Cessation:Ready to Q uit: Not Asked; Counseling Given: Not Answered Alcohol Use Standard Drinks/Week Comments Yes 0 [...] on file Sexual Orientation Not on file Last Filed Vital Signs Vital Sign Reading Time Taken Comments Blood Pressure 152/88 08/31/2024 2:10 PM EST Pulse 91 08/31/2024 2:10 PM EST Temperature 36.2 C (97.2 F) 08/31/2024 2:10 PM EST Respiratory Rate 16 08/31/2024 2:10 PM EST Oxygen Saturation 96% 08/31/2024 2:10 PM EST Inhaled Oxygen Concentration - - Weight 63.9 kg (140 lb 14.4 oz) 08/31/2024 2:10 PM EST Height 162.6 cm (5' 4 ) 07/15/2024 1:12 PM EST Body Mass Index 24.19 07/15/2024 1:12 PM EST Plan of Treatment Health Maintenance Due Date Last Done Comments Adult Td,Tdap Booster 1955 LIPID PANEL 1955 DEPRESSION SCREENING 1968 SMOKING Hx and SMOKELESS TOBACCO SCREENING 1969 HEPATITIS C SCREENING 1974 PNEUMOCOCCAL VACCINES (50+ years) (1 of 2 - PCV) 1975 ZOSTER VACCINES (1 of 2) 1975 COLOGUARD 2001 COLONOSCOPY 2001 COLORECTAL CANCER SCREENING 2001 FIT TEST 2001 FOBT 2001 SIGMOIDOSCOPY 2001 VIRTUAL COLONOSCOPY 2001 OSTEOPOROSIS SCREENING INITIAL (ONE-TIME) 2021 INFLUENZA VACCINE (#1) 2025 COVID-19 VACCINE ( season) 2025 MAMMOGRAM 05/24/2026 05/24/2024, 04/09, 04/21/2024, Additional history exists RSV VACCINE (1 - 1-dose 75+ series) 2031 HEPATITIS A VACCINES Aged Out No long er eligible based on patient's age to complete this topic HIB VACCINES Aged Out No longer eligi ble based on patient's age to complete this topic MENINGOCOCCAL VACCINES (ACWY) Aged Out No longer eligible based on patient's age to complete this topic MENINGOCOCCAL VACCINES (B) Aged Out N o longer eligible based on patient's age to complete this topic Medical Devices Not on file Procedures Procedure Name Priority Date/Time Associated Diagnosis Comments BI MAMMOGRAM OUTSIDE (NO INTERPRETATION) Routine 05/24/2024 12:00 AM EDT from Last 3 Months or Most Recently Relevant to Health Maintenance Results * Mammogram Outside (No Interpretation) (05/24/2024 12:00 AM EDT) Narrative SYSTEMGENERATED, DOCUMENTATION - 06/24/2024 10:17 AM EDT This study is for PACS storage only and not for interpretation. us Unknown Unknown MD [facility] OUTSIDE IMAGING W/OUT INT ERPRETATION Final Result from Last 3 Months or Most Recently Relevant to Health Maintenance Insurance MEDICARE PART A & B [facility] MEDICARE SUPPLEMENT MEDICARE PART A & B [facility] MEDICARE SUPPLEMENT MEDICARE PART A & B MEDICARE SUPPLEMENT MEDICARE PART A & B Member Subscriber Plan / Payer (Ef fective 2021-) Name:June Perez Member ID:[id number] Relation to Subscriber:Self Name:June Perez Subscriber ID:[id number] Payer ID:[id number] Group ID:Not on file Type:Medicare Address: [employer] [address] [place] [id number] [place] [address] MEDICARE SUPPLEMENT MEDICARE PART A & B [facility] MEDICARE SUPPLEMENT MEDICARE PART A & B [facility] MEDICARE SUPPLEMENT Care Teams Hull Sorter Relationship Specialty Start Date End Date Sarita Neely PA [address] [place] [address] PCP - General Physician Senior Systems Programmer 07/15/24 Laura Burroughs MD [address] [place] [address] [email or web address] Medical [email or web address] 07/15/24 Raymond Knapp MD [address] [address] Cardiology 07/15/24 Manuel Boyd MD [address] [address] General Surgery 07/15/24 Additional Source Comments The information contained in this document represents components of the legal health record. It is not the complete legal health record.[facility]
--- OUTSIDE RECORDS SUMMARY | 2025-06-21 09:24 | XMS_ITS | Patient Health Record ---
Author Organization [facility] Billing Info Address [address] [place] [address] Support Name Relationship Address Phone Foreign Perez Emergency Contact [address] [place] [address] June Perez Guarantor Unknown [phone] Allergies Allergen (clinical drug ingredient) Drug/Non Drug [...] Date Status Comme nts PNEUMOCOCCAL 13 CONJ ([id number]) IM Intramuscular 03/21/2017 Administered FLU (Past vaccine [...] Problem Status W/U Status Risk Notes Problem 02547103 Hyperglycemia (R73.9) Active confirmed Problem 514555199 Dyslipidemia (E78.5) Active confirmed Problem 60503907 Dermatitis (L30.9) Active confirmed Problem 934183009 Well woman exam with routine gynecological exam (Z01.419) Active confirmed Problem 780067574 Estrogen deficiency (E28.39) Active confirmed Problem 302817934 Elevated hemoglobin (D58.2) Active confirmed Problem 29804593 Anxiety (F41.9) Active confirmed Problem Adult health examination (803165660) Adult general medical exam (Z00.00) Active confirmed Problem 21969818 Postmenopausal estrogen deficiency (Z78.0) Active confirmed Problem 76665767 Eczema, unspecified type (L30.9) Active confirmed Problem 715847544 Mild depression (F32.0) Active confirmed Problem 185418879 Osteopenia, unspecified location (M85.80) Active confirmed Problem 16937075 Thyromegaly (E01.0) Active confirmed Problem 208085895 BMI 22.0-22.9, adult (Z68.22) Active confirmed Problem 523990293 Screening for breast cancer (Z12.31) Active confirmed Problem 825841679 Screening breast examination (Z12.31) Active confirmed Plan Of Treatment Future Test Test Name Order Date US-THYROID (83994) 03/24/2019 Insurance Providers Payer Name Payer Address Payer Phone Subscriber Number Group Number Insured Name Patient Relationship to Insured Coverage Start Date Coverage End Date MEDICARE [place] PART B [address] [facility] STEFANY [place]OVER [id number] June Perez Self - patient is the insured 1 1 [employer] HE[employer] C[employer] OPTIONS [facility] [address] [facility] [place] [id number] June Perez Self - patient is the insured 1 1 Medical (General) History Medical History History ICD Code Osteopenia Anxiety Eczema Moles hx of thyroid goiter Surgical History Surgery Date(Month/Year) cyst removal 1997 vein surgery- varicose 2013
--- OUTSIDE RECORDS SUMMARY | 2025-06-21 09:24 | XMS_ITS | Patient Health Record ---
Author Organization [facility] Address [address] [place], [place] [address] Care Team Providers Care Executive Chairman Of The Board Name Role Phone Miriam Muñoz Primary Care [...]
== END 2025-06-21 09:30 | disposition home or self-care (01) ==
LOC: HO.ENCR 08:53
PROVIDERS: PCP Nurse Practitioner Family; Visit Provider Student in an Organized Health Care Education/Training Program
DX: E04.2 Nontoxic multinodular goiter (principal); M81.0 Age-related osteoporosis without current pathological fracture
CPT/HCPCS: 99214

== ENCOUNTER → 2025-06-21 08:53 | Outpatient (BNVA) | payer MEDICARE, SELFPAY | PROVIDERS: PCP Nurse Practitioner Family; Visit Provider Student in an Organized Health Care Education/Training Program | DX: E04.2 Nontoxic multinodular goiter (principal); M81.0 Age-related osteoporosis without current pathological fracture | CPT/HCPCS: 99212 ==

== ENCOUNTER → 2025-07-04 07:48 | Outpatient (REF) | payer MEDICARE, SELFPAY ==
--- OUTSIDE RECORDS SUMMARY | 2025-07-04 07:50 | XMS_ITS | Patient Health Record ---
Author Organization [facility] Billing Info Address [address] [place] [address] Support Name Relationship Address Phone Foreign Perez Emergency Contact [address] [place] [address] June Perez Guarantor Unknown [phone] Allergies Allergen (clinical drug ingredient) Drug/Non Drug [...] Date Status Comme nts PNEUMOCOCCAL 13 CONJ ([id number]) IM Intramuscular 03/21/2017 Administered FLU (Past vaccine [...] Problem Status W/U Status Risk Notes Problem 10386089 Hyperglycemia (R73.9) Active confirmed Problem 061195859 Dyslipidemia (E78.5) Active confirmed Problem 35601254 Dermatitis (L30.9) Active confirmed Problem 130059525 Well woman exam with routine gynecological exam (Z01.419) Active confirmed Problem 973338096 Estrogen deficiency (E28.39) Active confirmed Problem 402285908 Elevated hemoglobin (D58.2) Active confirmed Problem 82099047 Anxiety (F41.9) Active confirmed Problem Adult health examination (339718239) Adult general medical exam (Z00.00) Active confirmed Problem 14601914 Postmenopausal estrogen deficiency (Z78.0) Active confirmed Problem 56483247 Eczema, unspecified type (L30.9) Active confirmed Problem 866394562 Mild depression (F32.0) Active confirmed Problem 735625293 Osteopenia, unspecified location (M85.80) Active confirmed Problem 77152351 Thyromegaly (E01.0) Active confirmed Problem 109202320 BMI 22.0-22.9, adult (Z68.22) Active confirmed Problem 201457722 Screening for breast cancer (Z12.31) Active confirmed Problem 240509710 Screening breast examination (Z12.31) Active confirmed Plan Of Treatment Future Test Test Name Order Date US-THYROID (87728) 03/24/2019 Insurance Providers Payer Name Payer Address Payer Phone Subscriber Number Group Number Insured Name Patient Relationship to Insured Coverage Start Date Coverage End Date MEDICARE [place] PART B [address] [facility] STEFANY [place] [id number] June Perez Self - patient is the insured 1 1 [employer] HEALTH CARE OPTIONS [facility] [address] [facility] [place] [id number] June Perez Self - patient is the insured 1 1 Medical (General) History Medical History History ICD Code Osteopenia Anxiety Eczema Moles hx of thyroid goiter Surgical History Surgery Date(Month/Year) cyst removal 1997 vein surgery- varicose 2013
--- OUTSIDE RECORDS SUMMARY | 2025-07-04 07:50 | XMS_ITS | Clinical Summary ---
Author Organization [facility] Address [address] [facility] [place] [address] [place] [address] Phone Care Team Providers Care Neurology Tech Name Role Phone Sarita Neely Primary Care Provider [phone] Laura Burroughs MD Unavailable [phone] Raymond Knapp MD Unavailable [phone] Manuel Boyd MD Unavailable [phone] Allergies Active Allergy Reactions Criticality Noted Date [...] Maintenance Insurance MEDICARE PART A & B [facility] MEDICARE SUPPLEMENT MEDICARE PART A & B [facility] MEDICARE SUPPLEMENT MEDICARE PART A & B MEDICARE SUPPLEMENT MEDICARE PART A & B [facility] MEDICARE SUPPLEMENT MEDICARE PART A & B [facility] MEDICARE SUPPLEMENT MEDICARE PART A & B [facility] MEDICARE SUPPLEMENT Care Teams Neurology Tech Relationship Specialty Start Date End Date Sarita Neely PA [address] [place] [address] PCP - General Physician Balance Bridge Inspector 07/15/24 Laura Burroughs MD [address] [place] [address] [email or web address] Medical [email or web address] 07/15/24 Raymond Knapp MD [address] [address] Cardiology 07/15/24 Manuel Boyd MD [address] [address] General Surgery 07/15/24 Additional Source Comments The information contained in this document represents components of the legal health record. It is not the complete legal health record.[facility]
--- OUTSIDE RECORDS SUMMARY | 2025-07-04 07:50 | XMS_ITS | Encounter Summary ---
Author Organization [facility] Address [address] [facility] [address] [place] [address] Phone Care Team Providers Care Assistant Fitness Manager Name Role Phone Sarita Neely Primary Care Provider [phone] Laura Burroughs MD Unavailable [phone] Raymond Knapp MD Unavailable [phone] Manuel Boyd MD Unavailable [phone] Encounter Details Date Type Department Care Team (Late st Contact Info) Description 07/22/2024 Documentation [facility] Rad Onc [address] [place] [address] [phone] Vi Sepulveda, RN [address] [place], [place] [phone] [email or web address] Social History Tobacco Use Types Packs/Day Years [...] on filedocumented in this encounter Care Teams Assistant Fitness Manager Relationship Specialty Start Date End Date Sarita Neely PA [address] [place] [address] PCP - General Physician Robotics Specialist 07/15/24 Laura Burroughs MD [address] [place] [address] [email or web address] 07/15/24 Raymond Knapp MD [address] [place] [address] Cardiology 07/15/24 Manuel Boyd MD [address] [place] [address] General Surgery 07/15/24 documented as of this encounter Additional Source Comments The information contained in this document represents components of the legal health record. It is not the complete legal health record.[facility]
--- OUTSIDE RECORDS SUMMARY | 2025-07-04 07:50 | XMS_ITS | Patient Health Record ---
Author Organization [facility] Address [address] [place], [place] [address] Care Team Providers Care Assembler Motor Vehicle Name Role Phone Miriam Muñoz Primary Care Provider [phone] Reason For Referral No Information Immunizations Vaccine [...]
--- NOTE | 2025-07-04 08:09 | CA_ITS ---
Transthoracic Echocardiogram Patient (Last, First, Middle): June Perez J Gender: F Date of : 1955 Age: 69 Procedure Date: 07/04/2025 Procedure Type: Transthoracic Echocardiogram Location: OP Height: 162.56 cm Weight: 61.24 kg BSA: 1.66 m2 Heart Rate: 69 bpm BP: 132 / 80 mmHg Unix Engineer: AIYANA Referring MD: Raymond Knapp MD Symptoms: I35.0 - Nonrheumatic aortic (valve) stenosis Study Quality: Adequate ECG Rhythm: Sinus Conclusions: - The left ventricular systolic function is normal. The calculated ejection fraction is 60% by biplane method. - There is mild aortic valve stenosis. Findings Left Ventricle Normal left ventricular cavity size. There is normal left ventricular wall thickness. The left ventricular systolic function is normal. The calculated ejection fraction is 60% by biplane method. Diastolic function is normal for age. Possible basal inferior hypokinesis. Right Ventricle Normal right ventricular cavity size and systolic function. Atria Both atria are normal in size. Aortic Valve There is mild calcification of the aortic valve. There is mild aortic valve stenosis. There is no aortic valve regurgitation. Mitral Valve There is mild mitral annular calcification. There is no mitral valve regurgitation. There is no mitral valve stenosis. Pulmonic Valve The pulmonic valve is likely normal. Tricuspid Valve Normal tricuspid valve structure. There is trace tricuspid valve regurgitation. There is no evidence of pulmonary hypertension. Great Vessels The aorta was not well visualized. The aortic annulus and aortic arch are normal in size. Venous The inferior vena cava is normal in size and collapses greater than 50% with inspiration. Pericardium/Pleural There is no evidence of pericardial effusion. Prior Study Comparison No significant change compared to prior study dated: 05/26/2024. Wall motion similar to prior study (and 2021). Measurements 2D Linear Measurements IVSd: 0.83 0.6-0.9/0.6-1.0 cm LVIDd: 4.48 3.9-5.3/4.2-5.9 cm LVIDd Index: 2.70 2.4-3.2/2.2-3.1 cm/m2 LVIDs: 3.03 2.0-3.6 cm LVPWd: 0.79 0.7-1.1 cm LA Diam: 3.30 2.7-3.8/3.0-4.0 cm LAIDs Index: 1.99 1.5-2.3 cm/m2 LV Mass: 142.43 67-162/88-224 g LV Mass Index: 85.80 43-95/49-115 g/m2 LVOT Diam: 2.00 3.0+(-)1.3 cm 2D Systolic Function EF 4C: 61.00 >55% EF 2C: 61.00 >55% EF BiP: 60.00 >55% Mitral Valve MV Pk E: 0.89 MV PK A: 1.29 MV Decel Time: 257.00 E/A: 0.70 E'Lateral: 8.05 E'Medial: 6.53 E/E' Med: 13.70 E/E' Lat: 11.10 PHT: 75.00 MVA PHT: 2.93 Decel Wolfe: 3.48 Aortic Valve AoV Pk Surjit: 2.05 AoV Mn Surjit: 1.44 AoV VTI: 0.43 AoV Pk Grad: 17.00 Aov Mn Grad: 10.00 BREE Cont.VTI: 1.85 LVOT LVOT Pk Surjit: 1.23 LVOT Mn Surjit: 0.82 LVOT VTI: 0.25 LVOT Pk Grad: 6.00 LVOT Mn Grad: 3.00 LVOT Diam: 2.00 LVOT Area: 3.14 Diastolic Function MV Pk E: 0.89 MV Pk A: 1.29 E/A: 0.70 E'Medial: 6.53 E/E' Med: 13.70 E' Laterial: 8.05 E/E' Lat: 11.10 Right Ventricle TAPSE (mm): 23.40 TVS' Surjit: 12.10 Tricuspid Valve TR Pk Surjit: 1.98 TR Pk Grad: 16.00 RA Press: 3.00 RVSP: 19.00 Great Vessels Aorta Sinus of Valsalva: 2.90 2.0-3.5 cm Ao Asc: 3.00 2.1-3.4 cm Ao Arch: 3.10 Pulmonary Veins Pulm Vein S/D 1.60 Pulmonary Valve PV Pk Surjit: 0.96 Peak PV Grad: 4.00 Updated in Other Vendor System with Status of Final Raymond Knapp MD electronically signed on 07/05/2025 3:58:59 PM with status of Final
== END ==
LOC: HO.CARD 07:48
PROVIDERS: PCP Physician Assistant; Visit Provider Internal Medicine
DX: I35.0 Nonrheumatic aortic (valve) stenosis (principal)
CPT/HCPCS: 93306

== ENCOUNTER → 2025-07-04 08:09 | Outpatient (BNV) | payer MEDICARE, SELFPAY | PROVIDERS: PCP Physician Assistant; Visit Provider Internal Medicine | DX: I35.0 Nonrheumatic aortic (valve) stenosis (principal) | CPT/HCPCS: 93306 ==

== ENCOUNTER 2025-07-14 08:47 | Outpatient (AMB) | payer MEDICARE, SELFPAY ==
--- NOTE | 2025-07-14 09:00 | MHC.OFFVIS ---
Vital Signs 07/14/25 09:01 Height 5 ft 4 in Weight 136 lb 10.986 oz BMI 23.5 BP 150/80 H Blood Pressure Location Lt brachial Position Sitting Pulse 92 Pulse Source Monitor Intake Visit Reasons: yearly f/up echo Regional Transfer Liaison Required: No Accompanied by: Self / Same As Patient Allergies diphenhydramine (From Benadryl) Adverse Reaction (Intermediate, Verified 07/14/25 09:03) Shakiness Medication List - Last Reconciled 07/14/25 by Raymond Knapp MD calcium citrate-vitamin D3 500 mg-12.5 mcg (500 unit) 1 tab PO QAM escitalopram oxalate 10 mg PO QAM folic acid 0.8 mg PO QAM lorazepam 0.5 mg PO DAILY PRN 30 days polyethylene glycol 3350 (Miralax) 238 grams PO ONCE raloxifene 60 mg PO DAILY vitamin B complex 1 tab PO QAM HPI Comments Details: June returns for follow-up. In the past, she was seen regarding aortic stenosis. Overall, she states she feels fine. She has got no cardiac symptoms. No activity limitations. Smoker. [facility] Medical History Pilonidal cyst Anxiety Dyslipidemia Aortic valve stenosis, nonrheumatic Menopausal vaginal dryness Smoking Multinodular thyroid Palpitations Osteopenia Surgical History History of lumpectomy of left breast (06/07/24) Hx of left breast biopsy Family History Mother Age: 90 Breast CA Heart valve replaced Father No problems noted. Other Mental health disorder Social History Housing: Condominium Are you a primary cardiac care nurse to a significant other at home: No Do you presently have visiting nurse or other home services: No Alcohol intake: current Alcohol intake frequency: a few times a week Alcohol type: wine Patient Tobacco Use Status: Current everyday Tobacco user Tobacco use type: Cigarette Cigarette Packs Per Day: 1 Years Smoked: 40 e-Cigarette/Vaping Use: Never Used Second Hand Smoke Exposure: No service: No Current occupational status: retired Sexual orientation: Straight/Heterosexual Gender identity: Female Cognitive needs: No Hearing needs: No Vision needs: Yes (reading glasses) Female Reproductive History Menstrual Age of Menarche: 13 Review of Systems Const Denies daytime sleepiness, Denies difficulty sleeping, Denies snoring, Denies stops breathing during sleep and Denies weakness Card Denies chest pain, Denies rapid heart rate, Denies irregular heart rhythm, Denies claudication, Denies leg edema, Denies lightheadedness, Denies palpitations, Denies dyspnea, Denies dyspnea on exertion, Denies orthopnea, Denies paroxysmal nocturnal dyspnea and Denies slow heart rate Resp Denies cough, Denies dyspnea, Denies dyspnea on exertion and Denies snoring GI Reports no additional complaints, Denies hematochezia, Denies change in stool character and Denies dyspepsia Musc Denies abnormal gait, Denies muscle weakness and Denies numbness Neuro Denies abnormal gait, Denies numbness and Denies weakness Endo Denies palpitations Physical Exam Vital Signs: Last Vital Signs Pulse 92 07/14/25 09:01 BP 150/80 H 07/14/25 09:01 BMI result Body Mass Index 23.5 Const General: comfortable and no acute distress Orientation/consciousness: patient oriented x3 HEENT Other: Unremarkable Head: Yes normal to inspection Neck Neck: Yes normal visual inspection Chest Chest palpation & inspection: normal inspection of the chest Resp Auscultation: clear to auscultation bilaterally Cardio Palpation: normal PMI Heart sounds: S1 normal heart sound present, S2 normal heart sound present, no gallops, no murmurs and no rubs GI Palpation (GI): Soft to palpation Back/Spine/Pelvis Other: unremarkable Skin General skin exam: no rashes or lesions noted Neuro General: patient oriented x3 Extrem General: Yes normal to inspection Psych Mental Status: mental status grossly normal Office Procedures EKG Details: EKG with underlying sinus rhythm at 92/Min; no ischemic changes; [place]. [id number], Complete Assessment & Plan Assessment & Plan (1) Nonrheumatic aortic (valve) stenosis: Code(s): I35.0 - Nonrheumatic aortic (valve) stenosis Category: Medical (2) Smoking: Code(s): F17.200 - Nicotine dependence, unspecified, uncomplicated Category: Social Hx (3) Elevated blood pressure reading without diagnosis of hypertension: Code(s): R03.0 - Elevated blood-pressure reading, without diagnosis of hypertension Category: Medical Plan In the most recent echocardiogram, LVEF is 60%. Mild aortic stenosis. Question of possible basal inferior hypokinesis but noted to be similar in multiple prior studies. Clinically, she has got absolutely no symptoms. We will continue to monitor the aortic stenosis. We will check another echocardiogram in about 2 years. With regard to the elevated blood pressure, advised her to do home readings. If they are consistently > 140/90 mm Hg, then may need medications. We discussed about this today. Follow up in 2 years with an echocardiogram. In the interim, she will call with any concerns or symptoms. Coding Level of Care Code Est Pt Level 3 (87582) Diagnoses Nonrheumatic aortic (valve) stenosis I35.0 Smoking F17.200 Elevated blood pressure reading without diagnosis of hypertension R03.0 CPT Codes EKG - CPT: 34918-[id number], Complete ([id number])
[2025-07-14 09:01] VITALS: BP 150/80; PULSE 92; BMI 23.5
--- OUTSIDE RECORDS SUMMARY | 2025-07-14 09:26 | XMS_ITS | Clinical Summary ---
Author Organization [facility] Address [address] [facility] [address] [place] [address] Phone Care Team Providers Care Paste Up Artist Apprentice Name Role Phone Sarita Neely Primary Care Provider [phone] Laura Burroughs MD Unavailable [phone] Raymond Knapp MD Unavailable [phone] Manuel Boyd MD Unavailable Allergies Active Allergy [...] Maintenance Insurance MEDICARE PART A & B [facility] MEDICARE SUPPLEMENT MEDICARE PART A & B [facility] MEDICARE SUPPLEMENT MEDICARE PART A & B MEDICARE SUPPLEMENT MEDICARE PART A & B [facility] MEDICARE SUPPLEMENT MEDICARE PART A & B Member Subscriber Plan / Payer (Ef fective 2021-Present) Name:June Perez Member ID:[id number] Relation to Subscriber:Self Name:June Perez Subscriber ID:[id number] Payer ID:[id number] Group ID:Not on file Type:Medicare Address: [employer] [facility] [address] [place] [id number] [facility] MEDICARE SUPPLEMENT MEDICARE PART A & B [facility] MEDICARE SUPPLEMENT Care Teams Paste Up Artist Apprentice Relationship Specialty Start Date End Date Sarita Neely PA [address] [place] [address] PCP - General Physician Official Greeter 07/15/24 Laura Burroughs MD [address] [place] [address] [email or web address] 07/15/24 Raymond Knapp MD [address] [address] Cardiology 07/15/24 Manuel Boyd MD [address] [address] General Surgery 07/15/24 Additional Source Comments The information contained in this document represents components of the legal health record. It is not the complete legal health record.[facility]
--- OUTSIDE RECORDS SUMMARY | 2025-07-14 09:26 | XMS_ITS | Encounter Summary ---
Author Organization [facility] Address [address] [facility] [address] [place] [address] Phone Care Team Providers Care Headlight Adjuster Name Role Phone Sarita Neely Primary Care Provider [phone] Laura Burroughs MD Unavailable [phone] Raymond Knapp MD Unavailable [phone] Manuel Boyd MD Unavailable [phone] Encounter Details Date Type Department Care Team (Late st Contact Info) Description 07/22/2024 Documentation [facility] Rad Onc [address] [place] [address] [phone] Vi Sepulveda, RN [address] [place], [place] [phone] [email or web address] Social History Tobacco Use Types Packs/Day Years [...] on filedocumented in this encounter Care Teams Headlight Adjuster Relationship Specialty Start Date End Date Sarita Neely PA [address] [place] [address] PCP - General Physician Salesperson Art Objects 07/15/24 Laura Burroughs MD [address] [place] [address] [email or web address] 07/15/24 Raymond Knapp MD [address] [place] [address] Cardiology 07/15/24 Manuel Boyd MD [address] [place] [address] General Surgery 07/15/24 documented as of this encounter Additional Source Comments The information contained in this document represents components of the legal health record. It is not the complete legal health record.[facility]
--- OUTSIDE RECORDS SUMMARY | 2025-07-14 09:26 | XMS_ITS | Patient Health Record ---
Author Organization [facility] Billing Info Address [address] [place] [address] Support Name Relationship Address Phone Foreign Perez Emergency Contact [address] [place] [address] [place] [address] June Perez Guarantor Unknown [phone] Allergies Allergen (clinical drug ingredient) Drug/Non Drug [...] Date Status Comme nts PNEUMOCOCCAL 13 CONJ ([id number]) IM Intramuscular 03/21/2017 Administered FLU (Past vaccine [...] Problem Status W/U Status Risk Notes Problem 14570245 Hyperglycemia (R73.9) Active confirmed Problem 934836730 Dyslipidemia (E78.5) Active confirmed Problem 12480338 Dermatitis (L30.9) Active confirmed Problem 044299647 Well woman exam with routine gynecological exam (Z01.419) Active confirmed Problem 212967487 Estrogen deficiency (E28.39) Active confirmed Problem 156025408 Elevated hemoglobin (D58.2) Active confirmed Problem 36005969 Anxiety (F41.9) Active confirmed Problem Adult health examination (964954118) Adult general medical exam (Z00.00) Active confirmed Problem 21042046 Postmenopausal estrogen deficiency (Z78.0) Active confirmed Problem 62394509 Eczema, unspecified type (L30.9) Active confirmed Problem 046693793 Mild depression (F32.0) Active confirmed Problem 043761017 Osteopenia, unspecified location (M85.80) Active confirmed Problem 42000183 Thyromegaly (E01.0) Active confirmed Problem 297566543 BMI 22.0-22.9, adult (Z68.22) Active confirmed Problem 275048186 Screening for breast cancer (Z12.31) Active confirmed Problem 237945515 Screening breast examination (Z12.31) Active confirmed Plan Of Treatment Future Test Test Name Order Date US-THYROID (87798) 03/24/2019 Insurance Providers Payer Name Payer Address Payer Phone Subscriber Number Group Number Insured Name Patient Relationship to Insured Coverage Start Date Coverage End Date [place] PART B [address] [facility] [place] [id number] June Perez Self - patient is the insured 1 1 [employer]IONS [facility] [address] [facility] [place] [place] [id number] June Perez Self - patient is the insured 1 1 Medical (General) History Medical History History ICD Code Osteopenia Anxiety Eczema Moles hx of thyroid goiter Surgical History Surgery Date(Month/Year) cyst removal 1997 vein surgery- varicose 2013
== END 2025-07-14 09:17 | disposition home or self-care (01) ==
LOC: HO.HCS 08:48
PROVIDERS: PCP Physician Assistant; Visit Provider Internal Medicine
DX: I35.0 Nonrheumatic aortic (valve) stenosis (principal); F17.200 Nicotine dependence, unspecified, uncomplicated; R03.0 Elevated blood-pressure reading, without diagnosis of hypertension
CPT/HCPCS: 93010; 99213

== ENCOUNTER → 2025-07-14 08:47 | Outpatient (BNVA) | payer MEDICARE, SELFPAY | PROVIDERS: PCP Physician Assistant; Visit Provider Internal Medicine | DX: I35.0 Nonrheumatic aortic (valve) stenosis (principal); R03.0 Elevated blood-pressure reading, without diagnosis of hypertension; Z72.0 Tobacco use; F10.10 Alcohol abuse, uncomplicated | CPT/HCPCS: 93005; 99212 ==

== ENCOUNTER 2025-08-12 09:17 | Outpatient (AMB) | payer MEDICARE, SELFPAY ==
--- NOTE | 2025-08-12 09:33 | MHC.OFFVIS ---
Vital Signs 08/12/25 09:40 Height 5 ft 4 in Weight 291 lb 14.272 oz BMI 50.1 BP 143/84 H Blood Pressure Location Lt brachial Position Sitting Pulse 126 H Intake Visit Reasons: 6 month breast exam ( Dr Boyd pt) Intake Note: Patient is seen in office for 6 month follow up visit, breast exam. Pt c/o: denies any concerns, has dense breast, does not self exam, tried Tamoxifen and discontinued due to side effects mm:12/23/24 Salt Grinder Required: No Accompanied by: Self / Same As Patient Allergies diphenhydramine (From Benadryl) Adverse Reaction (Intermediate, Verified 08/12/25 09:34) Shakiness Medication List - Last Reconciled 08/12/25 by Roman Ramos MD calcium citrate-vitamin D3 500 mg-12.5 mcg (500 unit) 1 tab PO QAM escitalopram oxalate 10 mg PO QAM folic acid 0.8 mg PO QAM lorazepam 0.5 mg PO DAILY PRN 30 days polyethylene glycol 3350 (Miralax) 238 grams PO ONCE raloxifene 60 mg PO DAILY vitamin B complex 1 tab PO QAM HPI Comments Details: 70-year-old female patient, former Dr. Boyd patient, returning for a routine breast cancer follow-up examination. She was diagnosed with left breast invasive lobular carcinoma by ultrasound-guided core biopsy on 05/03/2024. Pathology revealed invasive lobular carcinoma, grade 1, ER positive, NE negative, HER2 negative, Ki-67 low. She underwent a left breast lumpectomy with sentinel node biopsy on 06/03/2024. Pathology confirmed invasive lobular carcinoma, grade 1, 7 mm in size with negative margins, lobular carcinoma in-situ, 0 of 4 sentinel lymph nodes with metastatic disease (pT1b N0 (sn)). Oncotype DX breast recurrent score 18. She was evaluated by Dr. Hewitt and tamoxifen recommended. She subsequently stopped the tamoxifen due to severe hot flashes. She is currently on no adjuvant treatments. She underwent radiation therapy at [facility]. Genetic testing was negative for clinically significant mutations. Family history is significant for her mother having breast cancer at an older age. She is with 1 miscarriage and previously was on control pills. Her last mammogram performed on 12/23/2024 revealed post lumpectomy changes but no mammographic evidence of malignancy (BI-RADS 2). She is scheduled for an annual mammogram on 12/28/2025. She feels well and denies any ongoing breast symptoms at this time. [facility] Medical History (Updated 08/12/25 @ 09:58 by Roman Ramos MD) Invasive lobular carcinoma of left breast, stage 1 Pilonidal cyst Anxiety Dyslipidemia Aortic valve stenosis, nonrheumatic Menopausal vaginal dryness Smoking Multinodular thyroid Palpitations Osteopenia Surgical History (Updated 08/12/25 @ 09:59 by Roman Ramos MD) History of lumpectomy of left breast (06/07/24) Hx of left breast biopsy Family History Mother Age: 90 Breast CA Heart valve replaced Father No problems noted. Other Mental health disorder Social History Housing: Condominium Are you a primary career development consultant to a significant other at home: No Do you presently have visiting nurse or other home services: No Alcohol intake: current Alcohol intake frequency: a few times a week Alcohol type: wine Patient Tobacco Use Status: Current everyday Tobacco user Tobacco use type: Cigarette Cigarette Packs Per Day: 1 Years Smoked: 40 e-Cigarette/Vaping Use: Never Used Second Hand Smoke Exposure: No service: No Current occupational status: retired Sexual orientation: Straight/Heterosexual Gender identity: Female Cognitive needs: No Hearing needs: No Vision needs: Yes (reading glasses) Female Reproductive History Menstrual Age of Menarche: 13 Review of Systems Const All systems reviewed & are unremarkable except as noted in HPI and below Physical Exam Const General: no acute distress Nutritional Appearance: well nourished Orientation/consciousness: patient oriented x3 Limitations: no limitations Chest Other: Left breast: No skin change, no nipple retraction, no nipple discharge, no palpable mass, no enlarged lymph nodes, well-healed incision in the upper breast and axilla with no seroma or hematoma.. Right breast: No skin change, no nipple retraction, no nipple discharge, no palpable mass, no enlarged lymph nodes Chest/axillae images:  1. Incision left breast upper inner quadrant 2. Left axillary incision Resp Effort & Inspection: normal respiratory effort GI Inspection: Yes normal to inspection Skin Other: Warm, dry, no rash Neuro Other: Mobility Assessment: 1. 3 meter assessment time (seconds) 4 2. Gait observations: Normal balance and gait General: patient oriented x3 Extrem Other: No edema Assessment & Plan Assessment & Plan (1) Invasive lobular carcinoma of left breast, stage 1: Code(s): C50.912 - Malignant neoplasm of unspecified site of left female breast Category: Medical Plan 70-year-old female patient returning for six-month follow-up breast examination following left breast lumpectomy and left axillary sentinel node biopsy for invasive lobular carcinoma and LCIS. She feels well and denies any ongoing breast symptoms. Examination today revealed no evidence of recurrent disease with a well-healed incision in the left breast. She is scheduled for follow-up mammogram on 12/28/2025. She will return in 6 months for routine breast examination. She is welcome to call sooner for any new concerns. She will continue her follow-up with Dr. Burroughs. Coding Level of Care Code Est Pt Level 3 (89421) Complex visit Add On G2211 Diagnoses Invasive lobular carcinoma of left breast, stage 1 C50.912
[2025-08-12 09:40] VITALS: BP 143/84; PULSE 126; BMI 50.1
--- OUTSIDE RECORDS SUMMARY | 2025-08-12 10:03 | XMS_ITS | Patient Health Record ---
Author Organization [facility] Billing Info Address [address] [place] [address] Support Name Relationship Address Phone Foreign Perez Emergency Contact [address] [place] [address] George Pereza Guarantor Unknown [phone] Allergies Allergen (clinical drug ingredient) Drug/Non Drug [...] Date Status Comme nts PNEUMOCOCCAL 13 CONJ ([id number]) IM Intramuscular 03/21/2017 Administered FLU (Past vaccine [...] Problem Status W/U Status Risk Notes Problem 27102116 Hyperglycemia (R73.9) Active confirmed Problem 638942401 Dyslipidemia (E78.5) Active confirmed Problem 67616044 Dermatitis (L30.9) Active confirmed Problem 296908740 Well woman exam with routine gynecological exam (Z01.419) Active confirmed Problem 416507745 Estrogen deficiency (E28.39) Active confirmed Problem 326994539 Elevated hemoglobin (D58.2) Active confirmed Problem 88422068 Anxiety (F41.9) Active confirmed Problem Adult health examination (816032320) Adult general medical exam (Z00.00) Active confirmed Problem 25253027 Postmenopausal estrogen deficiency (Z78.0) Active confirmed Problem 03645147 Eczema, unspecified type (L30.9) Active confirmed Problem 148485110 Mild depression (F32.0) Active confirmed Problem 592607852 Osteopenia, unspecified location (M85.80) Active confirmed Problem 71730964 Thyromegaly (E01.0) Active confirmed Problem 548866646 BMI 22.0-22.9, adult (Z68.22) Active confirmed Problem 161826776 Screening for breast cancer (Z12.31) Active confirmed Problem 132753259 Screening breast examination (Z12.31) Active confirmed Plan Of Treatment Future Test Test Name Order Date US-THYROID (16191) IH 03/24/2019 Insurance Providers Payer Name Payer Address Payer Phone Subscriber Number Group Number Insured Name Patient Relationship to Insured Coverage Start Date Coverage End Date MEDICARE [place] PART B [address] [facility] [place] [place] [id number] June Perez Self - patient is the insured 1 1 [facility] MEDICARE SUPP/1878 [address] [facility] [place] [id number] June Perez Self - patient is the insured 1 1 Medical (General) History Medical History History ICD Code Osteopenia Anxiety Eczema Moles hx of thyroid goiter Surgical History Surgery Date(Month/Year) cyst removal 1997 vein surgery- varicose 2013
--- OUTSIDE RECORDS SUMMARY | 2025-08-12 10:03 | XMS_ITS | Clinical Summary ---
Author Organization [facility] Address [address] [facility] [address] [place] [address] Phone Care Team Providers Care Full Time Staff Interpreter Name Role Phone Sarita Neely Primary Care Provider [phone] Laura Burroughs MD Unavailable [phone] Raymond Knapp MD Unavailable [phone] Manuel Boyd MD Unavailable Allergies Active Allergy [...] Maintenance Insurance MEDICARE PART A & B [facility] MEDICARE SUPPLEMENT MEDICARE PART A & B [facility] MEDICARE SUPPLEMENT MEDICARE PART A & B MEDICARE SUPPLEMENT MEDICARE PART A & B [facility] MEDICARE SUPPLEMENT MEDICARE PART A & B [facility] MEDICARE SUPPLEMENT MEDICARE PART A & B [facility] MEDICARE SUPPLEMENT Care Teams Full Time Staff Interpreter Relationship Specialty Start Date End Date Sarita Neely PA [address] [place] [address] PCP - General Physician Pediatric Dentist 07/15/24 Laura Burroughs MD [address] [place] [address] [email or web address] 07/15/24 Raymond Knapp MD [address] [address] Cardiology 07/15/24 Manuel Boyd MD [address] [address] General Surgery 07/15/24 Additional Source Comments The information contained in this document represents components of the legal health record. It is not the complete legal health record.[facility]
--- OUTSIDE RECORDS SUMMARY | 2025-08-12 10:03 | XMS_ITS | Encounter Summary ---
Author Organization [facility] Address [address] [facility] [address] [place] [address] Phone Care Team Providers Care Ivf Embryologist Name Role Phone Sarita Neely Primary Care Provider [phone] Laura Burroughs MD Unavailable [phone] Raymond Knapp MD Unavailable [phone] Manuel Boyd MD Unavailable [phone] Encounter Details Date Type Department Care Team (Late st Contact Info) Description 07/22/2024 Documentation [facility] [place] Rad Onc [address] [place] [address] [phone] Vi Sepulveda, RN [address] [place], [place] [phone] [email or web address] Social History Tobacco Use Types Packs/Day Years [...] on filedocumented in this encounter Care Teams Ivf Embryologist Relationship Specialty Start Date End Date Sarita Neely PA [address] [place] [address] PCP - General Physician Photography Professor 07/15/24 Laura Burroughs MD [address] [place] [address] [email or web address] 07/15/24 Raymond Knapp MD [address] [place] [address] Cardiology 07/15/24 Manuel Boyd MD [address] [place] [address] General Surgery 07/15/24 documented as of this encounter Additional Source Comments The information contained in this document represents components of the legal health record. It is not the complete legal health record.[facility]
== END 2025-08-12 09:43 | disposition home or self-care (01) ==
LOC: HO.HGS 09:18
PROVIDERS: PCP Physician Assistant; Visit Provider Surgery
DX: C50.912 Malignant neoplasm of unspecified site of left female breast (principal)
CPT/HCPCS: 99213; G2211

== ENCOUNTER → 2025-08-12 09:17 | Outpatient (BNVA) | payer MEDICARE, SELFPAY | PROVIDERS: PCP Physician Assistant; Visit Provider Surgery | DX: C50.912 Malignant neoplasm of unspecified site of left female breast (principal) | CPT/HCPCS: 99212 ==